=== PATIENT | male | born 1945 | race Caucasian/White ===

== ENCOUNTER 2016-11-26 14:06 | Inpatient (IN) | payer MEDICARE, OTHER ==
[2016-11-26] MEDS: Fenofibrate Nanocrystallized 145 MG TAB PO SCH (20:07)
[2016-11-26] MEDS: Carvedilol 3.125 MG TAB PO SCH (20:09)
[2016-11-26] MEDS: HYDROcodone/Acetaminophen 10/325 mg Tablet PO PRN (20:13)
[2016-11-26] MEDS: Aspirin 325 MG TAB PO SCH (20:14)
[2016-11-26] MEDS: Loratadine 10 MG TAB PO SCH (20:40)
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
[2016-11-27 08:13] LABS: Anion Gap 14 mmol/L (10-20); BUN (Urea Nitrogen) 16 mg/dL (8.4-25.7); Calc. Creatinine Clearance 73 mL/min (70-130); Calcium 9.5 mg/dL (7.8-10.44); Carbon Dioxide 28 mmol/L (23-31); Chloride 101 mmol/L (98-107); Estimated GFR-MDRD 70; Glucose 94 mg/dL (83-110); Potassium 4.3 mmol/L (3.5-5.1); Sodium 139 mmol/L (136-145)
[2016-11-27 08:23] LABS: Hemoglobin 11.3 g/dL (14.0-18.0); Mean Corpuscular HGB CONC 34.1 g/dL (32.0-36.0); Mean Corpuscular Hemoglobin 32.7 pg (27.0-31.0); Mean Corpuscular Volume 95.8 fl (80.0-94.0); Platelet Count 220 thou/uL (130-400); RBC Distribution Width 11.9 % (11.5-14.5); Red Blood Cell (RBC) Count 3.45 mill/uL (4.70-6.10); White Blood Cell (WBC) Count 5.9 thou/uL (4.8-10.8)
[2016-11-27 08:25] LABS: Band 4 % (5-11); Lymphocytes 17 % (21-51); Monocytes 9 % (0-10); Neutrophil 69 % (42-75)
[2016-11-27 08:26] LABS: Eosinophils 1 % (0-10)
[2016-11-27] MEDS: Carvedilol 3.125 MG TAB PO SCH ×2 (08:56→21:03)
[2016-11-27] MEDS: Acetaminophen 500 MG TAB PO SCH (08:56)
[2016-11-27] MEDS: Fish Oil 1,000 MG CAP PO SCH ×2 (08:57→21:05)
[2016-11-27] MEDS: Ezetimibe 10 MG TAB PO SCH (08:57)
[2016-11-27] MEDS: Lisinopril 10 MG TAB PO SCH (08:58)
[2016-11-27] MEDS: Ubidecarenone 50 MG CAP PO SCH (09:00)
[2016-11-27] MEDS: HYDROcodone/Acetaminophen 10/325 mg Tablet PO PRN ×3 (09:10→21:02)
[2016-11-27] MEDS: PRASUGREL HCL 10 MG PO SCH (09:12)
--- NOTE | 2016-11-27 12:26 | PRG ---
DATE OF SERVICE: 11/27/2016 SUBJECTIVE: The patient said he feels pretty good. He is still sore in the right knee. He has got an ice pack on the knee, he said that really helps. OBJECTIVE: The patient is sitting upright in bed with the knee covered with an ice pack. He looks very comfortable, in no distress. His temp 97.5. His pulse is 67, blood pressure 162/66, respirati ons 16, O2 sat 96%. Lungs are clear. Heart, regular rate. Right knee, the swelling of the knee is down, it is still a little larger than the left. The increased heat is presently resolved, but pro bably as a result of the ice pack that has been on the leg. Overall the knee looks better. There i s no drainage from the incision. LABORATORY: H\T\H is 11.3 and 33.1, WBC count 5900 with 69% segs, 17% lymphocytes, and a platelet c ount of 220,000. Sodium 139, potassium 4.3, BUN 16, creatinine 1.04, glucose 94. ASSESSMENT: 1. Weakness and deconditioning and following right total knee replacement on 11/23/2016. A. Improved as of 11/27/2016. 2. Severe osteoarthritis of the knees. A. Status post left total knee replacement on 11/01/2013. B. Status post right total knee replacement on 11/23/2016. 3. Coronary artery disease. A. Status post coronary artery bypass on 07/07/1988, status post stent placement x4 on 07/15/20 09. B. Asymptomatic. 4. Status post pacemaker placement on 07/30/2015 for severe bradycardia with syncope. Last interrogation in 05/2016 showed pacemaker function 45% of the time. 5. Carotid artery disease. A. Status post right carotid endarterectomy with patch angioplasty in 2013. B. Status post left carotid endarterectomy with patch angioplasty on 01/31/2014. 6. Hypertension. 7. Hyperlipidemia. 8. Allergic rhinitis. 9. Chronic kidney disease, stage 3. A. GFR is 70 as of 11/27/2016. 10. Diverticular disease. PLAN: Continue present care. Continue physical therapy. The patient may have a pass to go out and be with his family for lunch tomorrow.
[2016-11-27] MEDS: Aspirin 325 MG TAB PO SCH (21:02)
[2016-11-27] MEDS: Loratadine 10 MG TAB PO SCH (21:02)
[2016-11-27] MEDS: Polyethylene Glycol 3350 17 GM Packet PO PRN (21:08)
[2016-11-27] MEDS: Fenofibrate Nanocrystallized 145 MG TAB PO SCH (22:00)
[2016-11-28] MEDS: HYDROcodone/Acetaminophen 10/325 mg Tablet PO PRN ×2 (08:53→21:03)
[2016-11-28] MEDS: Acetaminophen 500 MG TAB PO SCH (08:54)
[2016-11-28] MEDS: Carvedilol 3.125 MG TAB PO SCH ×2 (08:55→20:57)
[2016-11-28] MEDS: Ezetimibe 10 MG TAB PO SCH (08:55)
[2016-11-28] MEDS: Fish Oil 1,000 MG CAP PO SCH ×2 (08:55→20:59)
[2016-11-28] MEDS: Lisinopril 10 MG TAB PO SCH (08:56)
[2016-11-28] MEDS: Ubidecarenone 50 MG CAP PO SCH (08:56)
[2016-11-28] MEDS: PRASUGREL HCL 10 MG PO SCH (08:56)
[2016-11-28] MEDS: Aspirin 325 MG TAB PO SCH (20:57)
[2016-11-28] MEDS: Fenofibrate Nanocrystallized 145 MG TAB PO SCH (20:59)
[2016-11-28] MEDS: Loratadine 10 MG TAB PO SCH (21:00)
[2016-11-29] MEDS: HYDROcodone/Acetaminophen 10/325 mg Tablet PO PRN ×4 (01:00→17:14)
--- NOTE | 2016-11-29 09:11 | PRG ---
DATE OF SERVICE: 11/29/2016 SUBJECTIVE: The patient went home yesterday for his Easter lunch and this worked out well. He says his leg is a little sore this morning. He did some exercise on it yesterday and now just the muscl es are sore. OBJECTIVE: The patient is lying in bed. He is alert and appears very comfortable, in no distress. Temp 98, pulse 93, blood pressure 162/66, respirations 18, O2 sat 96% on room air. Lungs are clear . Heart, regular rate. The right knee is a little warmer than the left. The right knee is a littl e larger than the left. There is a little redness, appears in the normal range at this stage of his postop day. ASSESSMENT: 1. Weakness and deconditioning and following right total knee replacement on 11/23/2016. A. Improved as of 11/29/2016. 2. Severe osteoarthritis of the knees. A. Status post left total knee replacement on 11/01/2013. B. Status post right total knee replacement on 11/23/2016. 3. Coronary artery disease. A. Status post coronary artery bypass on 07/07/1988, status post stent placement x4 on 07/15/20 09. B. Asymptomatic. 4. Status post pacemaker placement on 07/30/2015 for severe bradycardia with syncope. Last interrogation in 05/2016 showed pacemaker function 45% of the time. 5. Carotid artery disease. A. Status post right carotid endarterectomy with patch angioplasty in 2013. B. Status post left carotid endarterectomy with patch angioplasty on 01/31/2014. 6. Hypertension. 7. Hyperlipidemia. 8. Allergic rhinitis. 9. Chronic kidney disease, stage 3. A. GFR is 70 as of 11/27/2016. 10. Diverticular disease. PLAN: Continue present care. Continue physical therapy.
[2016-11-29] MEDS: Ezetimibe 10 MG TAB PO SCH (09:30)
[2016-11-29] MEDS: Ubidecarenone 50 MG CAP PO SCH (09:31)
[2016-11-29] MEDS: Carvedilol 3.125 MG TAB PO SCH ×2 (09:31→20:37)
[2016-11-29] MEDS: Fish Oil 1,000 MG CAP PO SCH ×2 (09:32→20:36)
[2016-11-29] MEDS: Lisinopril 10 MG TAB PO SCH (09:32)
[2016-11-29] MEDS: PRASUGREL HCL 10 MG PO SCH (09:33)
[2016-11-29] MEDS: Acetaminophen 500 MG TAB PO SCH (09:33)
[2016-11-29] MEDS: Polyethylene Glycol 3350 17 GM Packet PO PRN (17:18)
[2016-11-29] MEDS: Loratadine 10 MG TAB PO SCH (20:36)
[2016-11-29] MEDS: Fenofibrate Nanocrystallized 145 MG TAB PO SCH (20:39)
[2016-11-29] MEDS: Aspirin 325 MG TAB PO SCH (20:39)
[2016-11-29 20:40] VITALS: BMI 24.3
[2016-11-29] MEDS ORDERED: Bisacodyl 10 MG SUPP PR PRN (21:54)
[2016-11-29] MEDS ORDERED: Polyethylene Glycol 3350 17 GM Packet PO SCH (22:00)
[2016-11-30] MEDS: HYDROcodone/Acetaminophen 10/325 mg Tablet PO PRN ×3 (05:37→20:53)
[2016-11-30] MEDS: Ubidecarenone 50 MG CAP PO SCH (08:28)
[2016-11-30] MEDS: Acetaminophen 500 MG TAB PO SCH (08:28)
[2016-11-30] MEDS: Fish Oil 1,000 MG CAP PO SCH ×2 (08:28→20:54)
[2016-11-30] MEDS: Lisinopril 10 MG TAB PO SCH (08:29)
[2016-11-30] MEDS: Carvedilol 3.125 MG TAB PO SCH ×2 (08:29→20:55)
[2016-11-30] MEDS: PRASUGREL HCL 10 MG PO SCH (08:30)
[2016-11-30] MEDS: Ezetimibe 10 MG TAB PO SCH (08:30)
--- NOTE | 2016-11-30 11:01 | PRG ---
DATE OF SERVICE: 11/30/2016 SUBJECTIVE: The patient said he is feeling better today. He had a lot of trouble with his bowels m oving, it had been several days. He took an extra dose of MiraLax and has Dulcolax suppository and said his bowels moved some. Overall he feels better and plans to continue the MiraLax daily. OBJECTIVE: The patient is lying in bed. He is alert and appears very comfortable and in no distres s. His temperature is 97.1, pulse 63, respirations 18, O2 sat 95% on room air, blood pressure 128/6 0. Lungs are clear. Heart, regular rate. Right knee, there is just a spot of some drainage on the dressing. There is mild increased heat, the right knee is a little larger than the left, but size is stable. The leg is a little pink, but no more than what it has been. Overall the leg looks good and he is moving the leg better. ASSESSMENT: 1. Weakness and deconditioning and following right total knee replacement on 11/23/2016. A. Improved as of 11/30/2016. 2. Severe osteoarthritis of the knees. A. Status post left total knee replacement on 11/01/2013. B. Status post right total knee replacement on 11/23/2016. 3. Coronary artery disease. A. Status post coronary artery bypass on 07/07/1988, status post stent placement x4 on 07/15/20 09. B. Asymptomatic. 4. Status post pacemaker placement on 07/30/2015 for severe bradycardia with syncope. Last interrogation in 05/2016 showed pacemaker function 45% of the time. 5. Carotid artery disease. A. Status post right carotid endarterectomy with patch angioplasty in 2013. B. Status post left carotid endarterectomy with patch angioplasty on 01/31/2014. 6. Hypertension. 7. Hyperlipidemia. 8. Allergic rhinitis. 9. Chronic kidney disease, stage 3. A. GFR is 70 as of 11/27/2016. 10. Diverticular disease. PLAN: Continue present care. Continue physical therapy.
[2016-11-30] MEDS: Polyethylene Glycol 3350 17 GM Packet PO PRN (20:51)
[2016-11-30] MEDS: Fenofibrate Nanocrystallized 145 MG TAB PO SCH (20:54)
[2016-11-30] MEDS: Loratadine 10 MG TAB PO SCH (20:54)
[2016-11-30] MEDS: Aspirin 325 MG TAB PO SCH (20:55)
[2016-12-01] MEDS: HYDROcodone/Acetaminophen 10/325 mg Tablet PO PRN ×3 (05:50→18:18)
[2016-12-01] MEDS: Ezetimibe 10 MG TAB PO SCH (10:09)
[2016-12-01] MEDS: Carvedilol 3.125 MG TAB PO SCH ×2 (10:09→21:13)
[2016-12-01] MEDS: Fish Oil 1,000 MG CAP PO SCH ×2 (10:09→21:12)
[2016-12-01] MEDS: Ubidecarenone 50 MG CAP PO SCH (10:09)
[2016-12-01] MEDS: Lisinopril 10 MG TAB PO SCH (10:10)
[2016-12-01] MEDS: Acetaminophen 500 MG TAB PO SCH (10:10)
[2016-12-01] MEDS: PRASUGREL HCL 10 MG PO SCH (10:12)
--- NOTE | 2016-12-01 10:34 | PRG ---
DATE OF SERVICE: 12/01/2016 SUBJECTIVE: The patient said he is doing good. His bowels are moving well. His therapy is going w ell. He slept well last night. OBJECTIVE: The patient is lying in bed. He is awake, appears very comfortable and in no distress. His temp 97.3, pulse 88, respirations 22, O2 sat 98% on room air, blood pressure 134/70. Lungs are clear. Heart, regular rate. Right knee incision is dry. The knee is a little larger than the lef t. The right knee has some increased warmth, but no more than it has had. There is slight pinkness to the knee. Overall, the knee looks better. There is no distal edema. ASSESSMENT: 1. Weakness and deconditioning and following right total knee replacement on 11/23/2016. A. Improved as of 12/01/2016. 2. Severe osteoarthritis of the knees. A. Status post left total knee replacement on 11/01/2013. B. Status post right total knee replacement on 11/23/2016. 3. Coronary artery disease. A. Status post coronary artery bypass on 07/07/1988, status post stent placement x4 on 07/15/20 09. B. Asymptomatic. 4. Status post pacemaker placement on 07/30/2015 for severe bradycardia with syncope. Last interrogation in 05/2016 showed pacemaker function 45% of the time. 5. Carotid artery disease. A. Status post right carotid endarterectomy with patch angioplasty in 2013. B. Status post left carotid endarterectomy with patch angioplasty on 01/31/2014. 6. Hypertension. 7. Hyperlipidemia. 8. Allergic rhinitis. 9. Chronic kidney disease, stage 3. A. GFR is 70 as of 11/27/2016. 10. Diverticular disease. PLAN: Continue present care. Continue physical therapy.
[2016-12-01] MEDS: Fenofibrate Nanocrystallized 145 MG TAB PO SCH (21:13)
[2016-12-01] MEDS: Aspirin 325 MG TAB PO SCH (21:13)
[2016-12-01] MEDS: Loratadine 10 MG TAB PO SCH (21:14)
[2016-12-01] MEDS: Polyethylene Glycol 3350 17 GM Packet PO PRN (21:19)
[2016-12-02] MEDS: HYDROcodone/Acetaminophen 10/325 mg Tablet PO PRN ×3 (06:01→11:57)
[2016-12-02] MEDS: Ubidecarenone 50 MG CAP PO SCH (08:02)
[2016-12-02] MEDS: Lisinopril 10 MG TAB PO SCH (08:02)
[2016-12-02] MEDS: Ezetimibe 10 MG TAB PO SCH (08:02)
[2016-12-02] MEDS: Fish Oil 1,000 MG CAP PO SCH (08:03)
[2016-12-02] MEDS: PRASUGREL HCL 10 MG PO SCH (08:03)
[2016-12-02] MEDS: Carvedilol 3.125 MG TAB PO SCH (08:03)
[2016-12-02] MEDS: Acetaminophen 500 MG TAB PO SCH (08:07)
[2016-12-02 08:14] VITALS: BP 125/61; TEMP 96.2
--- NOTE | 2016-12-02 10:00 | DIS ---
FINAL DIAGNOSES: 1. Weakness and deconditioning and following right total knee replacement on 11/23/2016. A. Improved as of 12/01/2016. 2. Severe osteoarthritis of the knees. A. Status post left total knee replacement on 11/01/2013. B. Status post right total knee replacement on 11/23/2016. 3. Coronary artery disease. A. Status post coronary artery bypass on 07/07/1988, status post stent placement x4 on 07/15/20 09. B. Asymptomatic. 4. Status post pacemaker placement on 07/30/2015 for severe bradycardia with syncope. Last interrogation in 05/2016 showed pacemaker function 45% of the time. 5. Carotid artery disease. A. Status post right carotid endarterectomy with patch angioplasty in 2013. B. Status post left carotid endarterectomy with patch angioplasty on 01/31/2014. 6. Hypertension. 7. Hyperlipidemia. 8. Allergic rhinitis. 9. Chronic kidney disease, stage 3. A. GFR is 70 as of 11/27/2016. 10. Diverticular disease. SUMMARY: The patient is a 71-year-old white male who has a history of coronary artery disease for w hich he has undergone bypass in 1987 and stents in 2008. He has been asymptomatic since then. He a lso has a pacemaker for bradycardia with syncope and carotid artery disease and hypertension. He ernst s been very stable from these medical problems. He has had very severe arthritis of the knees and u nderwent a left total knee replacement in 10/2013. The right knee had progressed and had become lonny y symptomatic and was creating pain with ambulation and limiting his activity. He was hospitalized at [facility] on 11/23/2016 and underwent a right total knee replacement by orthopedic surgeon, Dr. Nicholas Giordano. There were no complications from this and he has done very w ell postop. He was referred to the [facility] to extended care on 11/26 for continued physical therapy. His stay at the hospital has been uneventful. He worked with physical therapy and made very excellent progress with them, was transferring and ambulating with t he use of a walker independent. The knee was healing well. The dressing was left in place per requ est of orthopedic surgeon. There was a slight stain from drainage on the wound that remained stable . The knee was slightly larger than the left and slightly warm which were inspected changes from e surgery and was also a little larger than the opposite knee. He did very excellent with his physi dong therapy and by 12/02/2016 he felt like he could manage at home. He lives with his who will assist him with his care and the patient will stay for his physical therapy today and then go home late this afternoon and then we will start outpatient physical therapy on tomorrow 12/03/2016. His repeat lab on 11/27/2016 showed an H\T\H of 11.3 and 33.1, white cell count 5900 with 69% segs, 17% lymphocytes, and a platelet count of 220,000. Sodium 139, potassium 4.3, BUN 16, creatinine 1.04, G FR 70, glucose 94. DISPOSITION: The patient discharged on 12/02/2016. DIET: Regular diet. No added salt. ACTIVITIES: Ambulate with the use of a walker. Will begin outpatient physical therapy for the stre ngthening, gait training, and range motion of the right knee on 12/03/2016. MEDICATIONS: Acetaminophen 325 mg 2 q.i.d. as needed, hydrocodone/acetaminophen 10/325 1-2 every 4 hours as needed, aspirin 325 mg daily, carvedilol 3.125 mg half a tablet b.i.d., CoQ10 100 mg daily, Zetia 10 mg daily, Tricor 140 mg daily, fish oil 2000 mg b.i.d., lisinopril 20 mg daily, loratadine 10 mg daily as needed, pantoprazole 40 mg daily, MiraLax 17 grams in 8 ounces of water daily, Trisha nt 10 mg daily, Ranexa 1000 mg b.i.d., Crestor 40 mg at bedtime. FOLLOW UP: The patient is to see his orthopedic surgeon, Dr. Nicholas Giordano, on 12/22/2016. He will be seen in followup by myself in 2 weeks. CODE STATUS: Full code.
== END 2016-12-02 16:34 | disposition home or self-care (01) | DRG 561 ==
LOC: MADMS 14:06
PROVIDERS: ADMIT Family Medicine; ATTEND Family Medicine
DX: Z47.1 Aftercare following joint replacement surgery (principal); N18.3 Chronic kidney disease, stage 3 (moderate); I12.9 Hypertensive chronic kidney disease with stage 1 through stage 4 chronic kidney disease, or unspecified chronic kidney disease; Z96.651 Presence of right artificial knee joint; Z96.652 Presence of left artificial knee joint; R53.1 Weakness; I25.10 Atherosclerotic heart disease of native coronary artery without angina pectoris; Z95.5 Presence of coronary angioplasty implant and graft; Z95.820 Peripheral vascular angioplasty status with implants and grafts; Z95.0 Presence of cardiac pacemaker; Z95.1 Presence of aortocoronary bypass graft; E78.5 Hyperlipidemia, unspecified; J30.9 Allergic rhinitis, unspecified; K57.90 Diverticulosis of intestine, part unspecified, without perforation or abscess without bleeding; K58.9 Irritable bowel syndrome, unspecified; K57.30 Diverticulosis of large intestine without perforation or abscess without bleeding; Z87.891 Personal history of nicotine dependence
CPT/HCPCS: 36415; 80048; 85025

== ENCOUNTER 2017-02-07 08:44 | Outpatient (CLI) | payer MEDICARE, OTHER ==
[2017-02-07 09:44] LABS: ALT (SGPT) 20 U/L (8-55); AST (SGOT) 28 U/L (5-34); Albumin 4.2 g/dL (3.4-4.8); Alkaline Phosphatase 24 U/L (40-150); Anion Gap 13 mmol/L (10-20); BUN (Urea Nitrogen) 22 mg/dL (8.4-25.7); Bilirubin, Total 0.6 mg/dL (0.2-1.2); Calc. Creatinine Clearance 0 mL/min (70-130); Calcium 9.8 mg/dL (7.8-10.44); Carbon Dioxide 25 mmol/L (23-31); Cardiac Risk 3.3 (Less than 4.5); Chloride 104 mmol/L (98-107); Cholesterol 137 mg/dl (< 200 Desired); Estimated GFR-MDRD 55; Globulin 3.5 g/dL (2.4-3.5); Glucose 101 mg/dL (83-110); HDL Cholesterol 42 mg/dL (>60 Neg Risk); LDL Cholesterol, Calculated 75 mg/dL; Potassium 5.1 mmol/L (3.5-5.1); Protein, Total 7.7 g/dL (5.8-8.1); Sodium 137 mmol/L (136-145); Triglycerides 99 mg/dL (Less than 150)
== END 2017-02-07 08:45 | disposition home or self-care (01) ==
LOC: MADLAB 08:44
PROVIDERS: ATTEND Internal Medicine Cardiovascular Disease
DX: E78.00 Pure hypercholesterolemia, unspecified (principal)
CPT/HCPCS: 36415; 80053; 80061

== ENCOUNTER 2017-03-28 07:39 | Outpatient (CLI) | payer MEDICARE, OTHER ==
[2017-03-28 08:25] LABS: #Basophils 0.1 thou/uL (0.0-0.2); #Eosinphils 0.2 thou/uL (0.0-0.7); #Lymphocytes 2.1 thou/uL (1.20-3.40); #Monocytes 0.6 thou/uL (0.11-0.59); #Neutrophils 3.3 thou/uL (1.40-6.50); %Basophils 1.1 % (0.0-1.0); %Eosinophils 2.9 % (0.0-10.0); %Lymphocytes 33.5 % (21.0-51.0); %Monocytes 10.2 % (0.0-10.0); %Neutrophils 52.2 % (42.0-75.0); Hemoglobin 12.2 g/dL (14.0-18.0); Mean Corpuscular HGB CONC 32.1 g/dL (32.0-36.0); Mean Corpuscular Hemoglobin 30.9 pg (27.0-31.0); Mean Corpuscular Volume 96.4 fl (80.0-94.0); Mean Platelet Volume 6.6 fL (7.4-10.4); Platelet Count 263 thou/uL (130-400); RBC Distribution Width 13.1 % (11.5-14.5); Red Blood Cell (RBC) Count 3.96 mill/uL (4.70-6.10); White Blood Cell (WBC) Count 6.3 thou/uL (4.8-10.8)
[2017-03-28 08:43] LABS: ALT (SGPT) 17 U/L (8-55); AST (SGOT) 22 U/L (5-34); Alkaline Phosphatase 32 U/L (40-150); Anion Gap 15 mmol/L (10-20); BUN (Urea Nitrogen) 25 mg/dL (8.4-25.7); Bilirubin, Direct 0.2 mg/dL (0.1-0.3); Bilirubin, Total 0.4 mg/dL (0.2-1.2); Calc. Creatinine Clearance 0 mL/min (70-130); Calcium 9.5 mg/dL (7.8-10.44); Carbon Dioxide 26 mmol/L (23-31); Cardiac Risk 3.2 (Less than 4.5); Chloride 105 mmol/L (98-107); Cholesterol 142 mg/dl (< 200 Desired); Estimated GFR-MDRD 52; Glucose 105 mg/dL (83-110); HDL Cholesterol 44 mg/dL (>60 Neg Risk); LDL Cholesterol, Calculated 79 mg/dL; Potassium 4.5 mmol/L (3.5-5.1); Protein, Total 7.2 g/dL (5.8-8.1); Sodium 141 mmol/L (136-145); Triglycerides 95 mg/dL (Less than 150)
[2017-03-28 10:55] LABS: PSA-Asymptomatic (SCREENING) 0.98 ng/mL (0-4.0); Thyroid Stimulating Hormone 4.8846 uIU/mL (0.35-4.94)
== END 2017-03-28 07:40 | disposition home or self-care (01) ==
LOC: MADLABBHPM 07:39
PROVIDERS: ATTEND Family Medicine
DX: Z12.5 Encounter for screening for malignant neoplasm of prostate (principal); I25.10 Atherosclerotic heart disease of native coronary artery without angina pectoris
CPT/HCPCS: 36415; 80048; 80061; 80076; 84443; 85025; G0103

== ENCOUNTER 2018-02-28 07:36 | Outpatient (CLI) | payer MEDICARE, BC ==
[2018-02-28 08:12] LABS: #Basophils 0.1 thou/uL (0.0-0.2); #Eosinphils 0.2 thou/uL (0.0-0.7); #Lymphocytes 1.7 thou/uL (1.20-3.40); #Monocytes 0.6 thou/uL (0.11-0.59); #Neutrophils 3.3 thou/uL (1.40-6.50); %Eosinophils 2.6 % (0.0-10.0); %Lymphocytes 29.7 % (21.0-51.0); %Monocytes 9.4 % (0.0-10.0); %Neutrophils 57.4 % (42.0-75.0); Hemoglobin 11.9 g/dL (14.0-18.0); Mean Corpuscular HGB CONC 32.3 g/dL (32.0-36.0); Mean Corpuscular Hemoglobin 29.8 pg (27.0-31.0); Mean Corpuscular Volume 92.3 fL (78.0-98.0); Platelet Count 278 thou/uL (130-400); RBC Distribution Width 12.8 % (11.5-14.5); Red Blood Cell (RBC) Count 3.99 mill/uL (4.70-6.10); White Blood Cell (WBC) Count 5.8 thou/uL (4.8-10.8)
[2018-02-28 08:34] LABS: ALT (SGPT) 20 U/L (8-55); AST (SGOT) 28 U/L (5-34); Alkaline Phosphatase 22 U/L (40-150); Anion Gap 15 mmol/L (10-20); BUN (Urea Nitrogen) 26 mg/dL (8.4-25.7); Bilirubin, Direct 0.2 mg/dL (0.1-0.3); Bilirubin, Total 0.5 mg/dL (0.2-1.2); Calc. Creatinine Clearance 0 mL/min (70-130); Calcium 9.4 mg/dL (7.8-10.44); Carbon Dioxide 22 mmol/L (23-31); Cardiac Risk 3.3 (Less than 4.5); Chloride 106 mmol/L (98-107); Cholesterol 138 mg/dl (< 200 Desired); Estimated GFR-MDRD 50; Glucose 97 mg/dL (83-110); HDL Cholesterol 42 mg/dL (>60 Neg Risk); LDL Cholesterol, Calculated 73 mg/dL; Potassium 4.5 mmol/L (3.5-5.1); Sodium 138 mmol/L (136-145); Triglycerides 114 mg/dL (Less than 150)
== END 2018-02-28 07:37 | disposition home or self-care (01) ==
LOC: MADLABBHPM 07:36
PROVIDERS: ATTEND Family Medicine
DX: N18.3 Chronic kidney disease, stage 3 (moderate) (principal); E78.5 Hyperlipidemia, unspecified
CPT/HCPCS: 36415; 80048; 80061; 80076; 85025

== ENCOUNTER 2019-04-22 17:43 | Emergency (ER) | payer MEDICARE, BC ==
[2019-04-22 18:35] LABS: #Eosinphils 0.1 thou/uL (0.0-0.7); #Lymphocytes 1.7 thou/uL (1.20-3.40); #Monocytes 0.6 thou/uL (0.11-0.59); #Neutrophils 4.4 thou/uL (1.40-6.50); %Basophils 0.5 % (0.0-1.0); %Lymphocytes 25.2 % (21.0-51.0); %Monocytes 8.6 % (0.0-10.0); %Neutrophils 63.7 % (42.0-75.0); Hemoglobin 11.3 g/dL (14.0-18.0); Mean Corpuscular HGB CONC 32.7 g/dL (32.0-36.0); Mean Corpuscular Hemoglobin 29.8 pg (27.0-31.0); Mean Corpuscular Volume 91.1 fL (78.0-98.0); Mean Platelet Volume 5.9 fL (7.4-10.4); Platelet Count 241 thou/uL (130-400); RBC Distribution Width 12.1 % (11.5-14.5); White Blood Cell (WBC) Count 6.9 thou/uL (4.8-10.8)
[2019-04-22 18:43] LABS: INR-International Normal Ratio 1.1; PTT 31.4 SEC (22.9-36.1); Prothrombin Time 13.9 SEC (12.0-14.7)
[2019-04-22 18:53] LABS: ALT (SGPT) 16 U/L (8-55); AST (SGOT) 21 U/L (5-34); Albumin 3.5 g/dL (3.4-4.8); Alkaline Phosphatase 27 U/L (40-150); Anion Gap 14 mmol/L (10-20); BUN (Urea Nitrogen) 20 mg/dL (8.4-25.7); Bilirubin, Total 0.4 mg/dL (0.2-1.2); Calc. Creatinine Clearance 0 mL/min (70-130); Calcium 9.2 mg/dL (7.8-10.44); Carbon Dioxide 23 mmol/L (23-31); Chloride 103 mmol/L (98-107); Estimated GFR-MDRD 69; Globulin 2.9 g/dL (2.4-3.5); Glucose 121 mg/dL (83-110); Potassium 4.1 mmol/L (3.5-5.1); Protein, Total 6.4 g/dL (5.8-8.1); Sodium 136 mmol/L (136-145)
== END 2019-04-22 19:38 | disposition home or self-care (01) ==
LOC: MADERS 17:43
DX: S91.111A Laceration without foreign body of right great toe without damage to nail, initial encounter (principal); S00.12XA Contusion of left eyelid and periocular area, initial encounter; S80.12XA Contusion of left lower leg, initial encounter; H57.89 Other specified disorders of eye and adnexa; K21.9 Gastro-esophageal reflux disease without esophagitis; E78.5 Hyperlipidemia, unspecified; I10 Essential (primary) hypertension; W23.0XXA Caught, crushed, jammed, or pinched between moving objects, initial encounter
CPT/HCPCS: 36415; 80053; 85025; 85610; 85730; 99283

== ENCOUNTER 2019-04-25 10:58 | Outpatient (CLI) | payer MEDICARE, BC ==
[2019-04-25 11:18] LABS: #Eosinphils 0.2 thou/uL (0.0-0.7); #Lymphocytes 1.6 thou/uL (1.20-3.40); #Monocytes 0.5 thou/uL (0.11-0.59); #Neutrophils 5.7 thou/uL (1.40-6.50); %Basophils 0.6 % (0.0-1.0); %Lymphocytes 20.1 % (21.0-51.0); %Monocytes 6.1 % (0.0-10.0); %Neutrophils 71.2 % (42.0-75.0); Hemoglobin 11.5 g/dL (14.0-18.0); Mean Corpuscular HGB CONC 31.9 g/dL (32.0-36.0); Mean Corpuscular Hemoglobin 29.5 pg (27.0-31.0); Mean Corpuscular Volume 92.7 fL (78.0-98.0); Mean Platelet Volume 5.6 fL (7.4-10.4); Platelet Count 280 thou/uL (130-400); RBC Distribution Width 12.5 % (11.5-14.5); Red Blood Cell (RBC) Count 3.88 mill/uL (4.70-6.10)
== END 2019-04-25 10:59 | disposition home or self-care (01) ==
LOC: MADLABBHPM 10:58
PROVIDERS: ATTEND Family Medicine
DX: Z51.81 Encounter for therapeutic drug level monitoring (principal); S61.309A Unspecified open wound of unspecified finger with damage to nail, initial encounter; Z79.01 Long term (current) use of anticoagulants
CPT/HCPCS: 36415; 85025; 85610

== ENCOUNTER 2019-07-01 13:19 | Outpatient (CLI) | payer MEDICARE, BC ==
[2019-07-01 13:28] LABS: #Basophils 0.1 thou/uL (0.0-0.2); #Eosinphils 0.2 thou/uL (0.0-0.7); #Lymphocytes 1.5 thou/uL (1.20-3.40); #Monocytes 0.8 thou/uL (0.11-0.59); #Neutrophils 5.6 thou/uL (1.40-6.50); %Basophils 0.7 % (0.0-1.0); %Eosinophils 2.4 % (0.0-10.0); %Lymphocytes 18.3 % (21.0-51.0); %Monocytes 9.7 % (0.0-10.0); %Neutrophils 68.9 % (42.0-75.0); Hemoglobin 9.2 g/dL (14.0-18.0); Mean Corpuscular HGB CONC 30.5 g/dL (32.0-36.0); Mean Corpuscular Hemoglobin 28.2 pg (27.0-31.0); Mean Corpuscular Volume 92.2 fL (78.0-98.0); Mean Platelet Volume 5.5 fL (7.4-10.4); Platelet Count 410 thou/uL (130-400); RBC Distribution Width 13.7 % (11.5-14.5); Red Blood Cell (RBC) Count 3.25 mill/uL (4.70-6.10); White Blood Cell (WBC) Count 8.1 thou/uL (4.8-10.8)
[2019-07-01 13:35] LABS: Anion Gap 14 mmol/L (10-20); BUN (Urea Nitrogen) 20 mg/dL (8.4-25.7); Calc. Creatinine Clearance 0 mL/min (70-130); Calcium 9.5 mg/dL (7.8-10.44); Carbon Dioxide 25 mmol/L (23-31); Chloride 104 mmol/L (98-107); Estimated GFR-MDRD 51; Glucose 114 mg/dL (83-110); Potassium 4.3 mmol/L (3.5-5.1); Sodium 139 mmol/L (136-145)
== END 2019-07-01 13:20 | disposition home or self-care (01) ==
LOC: MADLAB 13:19
PROVIDERS: ATTEND Thoracic Surgery (Cardiothoracic Vascular Surgery)
DX: I70.221 Atherosclerosis of native arteries of extremities with rest pain, right leg (principal)
CPT/HCPCS: 36415; 80048; 85025

== ENCOUNTER 2019-09-20 10:08 | Inpatient (IN) | payer MEDICARE, BC ==
[2019-09-20 13:43] VITALS: BMI 21.5
[2019-09-20] MEDS ORDERED: Nystatin Powder 15 GM BOT TOP PRN (16:04)
[2019-09-20] MEDS ORDERED: guaiFENesin ER 600 MG TAB PO PRN (16:04)
[2019-09-20] MEDS: HYDROcodone/Acetaminophen 10/325 mg Tablet PO PRN ×2 (16:37→21:44)
[2019-09-20] MEDS: Doxycycline 100 MG CAP PO SCH (21:42)
[2019-09-20] MEDS: Aspirin 325 MG TAB PO SCH (21:42)
[2019-09-20] MEDS: Fenofibrate Nanocrystallized 145 MG TAB PO SCH (21:42)
[2019-09-20] MEDS: Folic Acid 1 MG TAB PO SCH (21:43)
[2019-09-20] MEDS: Loratadine 10 MG TAB PO SCH (21:43)
[2019-09-20] MEDS: Rosuvastatin 10 MG TAB PO SCH (21:44)
[2019-09-20] MEDS: Polyethylene Glycol 3350 17 GM Packet PO SCH (21:44)
[2019-09-20] MEDS: IPRATROPIUM BROMIDE EA NARE SCH (21:49)
[2019-09-20] MEDS: Omega-3 Acid Ethyl Esters [Lovaza] 1 GM PO SCH (21:58)
[2019-09-21 05:39] LABS: #Eosinphils 0.1 thou/uL (0.0-0.7); #Lymphocytes 1.4 thou/uL (1.20-3.40); #Monocytes 0.6 thou/uL (0.11-0.59); %Basophils 0.6 % (0.0-1.0); %Lymphocytes 23.2 % (21.0-51.0); %Monocytes 9.7 % (0.0-10.0); %Neutrophils 64.5 % (42.0-75.0); Elliptocytes SLIGHT = 2-5 cells (100X) (0-1/hpf); Hemoglobin 9.2 g/dL (14.0-18.0); Hypochromia SLIGHT = 6-15 cells (100X) (0-5/hpf); MDiff Complete? YES; Mean Corpuscular HGB CONC 30.3 g/dL (32.0-36.0); Mean Corpuscular Hemoglobin 26.5 pg (27.0-31.0); Mean Corpuscular Volume 87.5 fL (78.0-98.0); Mean Platelet Volume 5.1 fL (7.4-10.4); Platelet Count 357 thou/uL (130-400); Platelet Morphology Comment Appears Adequate; RBC Distribution Width 21.2 % (11.5-14.5); Red Blood Cell (RBC) Count 3.48 mill/uL (4.70-6.10); Schistocytes SLIGHT = 2-5 cells (100X) (0-1/hpf); Small Platelets SLIGHT; Tear Drops SLIGHT = 2-5 cells (100X) (0-1/hpf); White Blood Cell (WBC) Count 6.2 thou/uL (4.8-10.8)
[2019-09-21 05:47] LABS: ALT (SGPT) 22 U/L (8-55); AST (SGOT) 50 U/L (5-34); Albumin 2.9 g/dL (3.4-4.8); Alkaline Phosphatase 22 U/L (40-110); Anion Gap 14 mmol/L (10-20); BUN (Urea Nitrogen) 7 mg/dL (8.4-25.7); Bilirubin, Total 0.8 mg/dL (0.2-1.2); Calc. Creatinine Clearance 81 mL/min (70-130); Calcium 9.2 mg/dL (7.8-10.44); Carbon Dioxide 24 mmol/L (23-31); Chloride 102 mmol/L (98-107); Estimated GFR-MDRD Greater than 90; Globulin 3.7 g/dL (2.4-3.5); Glucose 81 mg/dL (83-110); Potassium 3.7 mmol/L (3.5-5.1); Protein, Total 6.6 g/dL (5.8-8.1); Sodium 136 mmol/L (136-145)
[2019-09-21] MEDS: Ondansetron ODT 4 MG TAB PO PRN (08:45)
--- NOTE | 2019-09-21 08:55 | HP ---
CHIEF COMPLAINT: General weakness, deconditioning, and wound care. HISTORY OF PRESENT ILLNESS: The patient is a 74-year-old white male, who has a history of generalized atherosclerosis, for which he has undergone coronary artery bypass, stent placements, bilateral carotid endarterectomies, multiple peripheral artery procedures to the lower extremities, who developed progressive loss of circulation in his feet and eventual gangrenous changes of the toes. The patient was hospitalized at [facility] from 08/27/2019 to 09/20/2019. There, he underwent a bilateral transmetatarsal guillotine type amputation due to the severe bilateral peripheral vascular disease with necrosis of the toes. This was done by Dr. Fareed Kendall, cardiovascular surgeon. He subsequently underwent incision and debridement of the right foot wound and closure on 09/05/2019 and then on 09/14/2019, he underwent incision and debridement and closure of the left foot, leaving some of the area open and had a wound VAC applied. He has been doing better. The right foot has been much better. He has been able to do some pivoting off the right heel, but he is nonweightbearing on the left and has a wound VAC to help with closure. His pain has been managed with now a fentanyl patch and with hydrocodone/acetaminophen 10/325 as needed for breakthrough pain. He was transferred to [facility] for continued wound care and for physical therapy. The patient was seen soon after his admission and he was able to review with me his history of his hospital stay. PAST MEDICAL HISTORY: Hospitalized at [facility] from 08/27 to 2019, for severe peripheral vascular disease below the knees with small vessel disease resulting in necrosis of the toes, for which he underwent bilateral transmetatarsal guillotine type amputation, incision and debridement and closure of the right foot on 09/05, and on 09/14, incision and debridement and partial closure of the left foot with wound VAC applications. The patient has severe generalized atherosclerosis. He underwent coronary artery bypass in 1987, heart stents x4 in July of 2006. He has had bilateral carotid endarterectomies in 2013 and 2011. He has had multiple balloon angioplasty and bypass to the lower extremities for peripheral vascular disease. He has an ischemic cardiomyopathy with improvement in the ejection fraction from 40% to 45% to 50% to 55%. 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 He has hypertension and hypercholesterolemia. He has a long history of smoking, but is trying to stop. He has Najera palsy. He has had herpes zoster involving the eye. He has had carpal tunnel release in May 2015. He has diverticulosis, had colonoscopies on several times. He has had right total knee replacement in November 2016. PRESENT MEDICATIONS: 1. Guaifenesin ER 600 mg b.i.d. as needed. 2. Lincoln-3 acid (Lovaza) two caps b.i.d. 3. Nicotine patch 7 mg daily. 4. Hydrocodone/acetaminophen 10/325 one or two every 4 hours as needed for pain. 5. Folic acid 1 mg b.i.d. 6. MiraLAX 17 g in 8 ounces of water daily. 7. Fluticasone two sprays in each naris daily. 8. Fenofibrate 145 mg at bedtime. 9. CoQ10 of 100 mg daily. 10. Crestor 40 mg daily. 11. Ranexa 1000 mg b.i.d. 12. Pantoprazole 40 mg daily. 13. Lisinopril 10 mg daily. 14. Aspirin 325 mg daily. 15. Florastor 250 mg daily. 16. Seroquel 25 mg at bedtime. 17. Mycostatin powder apply as needed. 18. Levaquin 500 mg daily. 19. Doxycycline 100 mg b.i.d. 20. Fentanyl patch 100 mcg apply to the skin every 72 hours. 21. Atrovent nasal spray one spray in each naris b.i.d. 22. Tylenol 650 mg every 4 hours as needed. ALLERGIES: LIPITOR, CHEST PAIN. VYTORIN, CHEST PAIN. BIAXIN, NAUSEA. PREVPAC , VOMITING. FLAGYL, DIZZINESS. CIPRO, GI UPSET. REVIEW OF SYSTEMS: GENERAL: The patient said he is feeling better. He does not think he has had any recent fever. The patient does not think that he has had any particular weight change. PULMONARY: The patient is breathing. He is doing good. He did have a few days ago where he was little winded and was seen by pulmonary doctor, Dr. Vasquez and Dr. Man. The patient right now is not coughing, and breathing seems to be doing good. CARDIOVASCULAR: No chest pain. GI: No nausea or vomiting. No change in bowel habits. : No complaints. NEUROPSYCHIATRIC: The patient had a little bit of confusion from an encephalopathy a few days ago, but this has all resolved. ADLS: Prior to his hospitalization, he was independent of all his ADLs. HABITS: Stopped smoking in 1987. Use smokeless tobacco and trying to stop. Alcohol none. SOCIAL HISTORY: The patient is and lives at home with his . PHYSICAL EXAMINATION: GENERAL: Shows a very pleasant 74-year-old white male, who is alert, talkative, appears comfortable and in no distress. VITAL SIGNS: His temperature is 97.4, pulse 97, respirations 16, O2 saturation 98% on room air, blood pressure 118/72, weight 154, and height 71 inches. HEENT: Head, normocephalic and atraumatic with male pattern baldness. Ears, TMs clear. Eyes, pupils are equal, round, and reactive. Nose, normal. Mouth and throat, normal. NECK: Carotids are equal and strong. No bruits. Thyroid, not enlarged. LUNGS: Clear. HEART: Regular rate. No murmurs. ABDOMEN: Soft. No organomegaly. No areas of tenderness. EXTREMITIES: The patient has dressings over both feet. The right foot was undressed and he has had a transmetatarsal amputation and the wound has been secondarily closed. There is a little crusting along the incision. The feet are warm. There is no redness. The left foot was left dressed. There is a wound VAC present, but it all shows undergone a transmetatarsal amputation and partial closure, some of the wound left open to heal with the help of a wound VAC. NEUROLOGIC: The patient is alert and oriented x3 with generalized weakness. Presently nonambulatory due to his weakness. IMPRESSION: 1. Generalized weakness and deconditioning. a. Status post bilateral transmetatarsal amputation of the feet on 2019. b. Has left him nonambulatory. 2. Hospitalized at [facility] from 08/27/2019 until 09/20/2019, for severe peripheral vascular disease with [id number] small-vessel disease with necrosis of the toes, for which he underwent bilateral transmetatarsal guillotine type amputation on 08/27, status post incision and debridement and closure of the right foot on 09/05, status post incision and drainage and partial closure and application of wound VAC to the left foot on 09/14. 3. Coronary artery disease. a. Status post coronary artery bypass in 1987. b. Status post stents x4 in 2005. c. Complicated by ischemic cardiomyopathy with improvement in his ejection fraction from 40% to 45% to 50% to 55%. Presently no evidence of acute congestive heart failure. 4. Carotid artery disease. a. Status post bilateral carotid endarterectomy. 5. Peripheral vascular disease. a. Status post multiple angioplasties and bypass to the lower extremities. b. Most recent bilateral transmetatarsal guillotine type amputation on 08/27 for severe peripheral vascular disease with necrosis of the toes. 6. Hypertension. 7. Hypercholesterolemia. 8. Tobacco abuse a.Stopped smoking 1987 b Chronic smokeless tobacco use. Trying to stop.. 9. Hyperlipidemia. 10. Status post dual chamber pacemaker placement. a. History of bradycardia with syncope. PLAN: The patient has been admitted to [facility] for continuation of wound care to the left foot. We will continue to use the wound VAC. Also we will continue present pain management regimen that he is receiving. Continue Lovenox for DVT prophylaxis. PT and OT will work with him for general strengthening and gait training. Presently, he can weight bear as he tolerates on the left. He will probably do better in a walking boot when he is up. Will need to follow up with his cardiovascular surgeon, Dr. Fareed Kendall in 2 weeks. Job ID: [id number] MTDD
[2019-09-21] MEDS ORDERED: fentaNYL 50 mcg/hour Patch TD SCH (09:00)
[2019-09-21] MEDS ORDERED: Enoxaparin Sodium 40 MG/0.4 ML SYRINGE SC SCH (09:00)
[2019-09-21] MEDS: Doxycycline 100 MG CAP PO SCH ×2 (10:59→21:34)
[2019-09-21] MEDS: Fluticasone Propionate Nasal Spray 16 gm Bottle NASAL SCH (11:02)
[2019-09-21] MEDS: Folic Acid 1 MG TAB PO SCH ×2 (11:07→21:34)
[2019-09-21] MEDS: Lisinopril 10 MG TAB PO SCH (11:07)
[2019-09-21] MEDS: IPRATROPIUM BROMIDE EA NARE SCH ×2 (11:08→21:35)
[2019-09-21] MEDS: Ubidecarenone 50 MG CAP PO SCH (11:11)
[2019-09-21] MEDS: Saccharomyces boulardii 250 MG CAP PO SCH (11:11)
[2019-09-21] MEDS: Omega-3 Acid Ethyl Esters [Lovaza] 1 GM PO SCH ×2 (11:12→21:39)
[2019-09-21] MEDS: Acetaminophen 325 MG TAB PO PRN (14:00)
[2019-09-21] MEDS: Carvedilol 3.125 MG TAB PO SCH (18:27)
[2019-09-21] MEDS: Fenofibrate Nanocrystallized 145 MG TAB PO SCH (21:34)
[2019-09-21] MEDS: Aspirin 325 MG TAB PO SCH (21:34)
[2019-09-21] MEDS: Nicotine 7 MG PATCH TD SCH (21:35)
[2019-09-21] MEDS: Loratadine 10 MG TAB PO SCH (21:35)
[2019-09-21] MEDS: Polyethylene Glycol 3350 17 GM Packet PO SCH (21:36)
[2019-09-21] MEDS: Rosuvastatin 10 MG TAB PO SCH (21:37)
[2019-09-21] MEDS ORDERED: Oxymetazoline HCl 0.05% (30 ML BOT) NS SCH (22:30)
[2019-09-22] MEDS: Ubidecarenone 50 MG CAP PO SCH (08:50)
[2019-09-22] MEDS: Carvedilol 3.125 MG TAB PO SCH ×2 (08:51→17:03)
[2019-09-22] MEDS: Lisinopril 10 MG TAB PO SCH (08:51)
[2019-09-22] MEDS: Doxycycline 100 MG CAP PO SCH ×2 (08:51→20:24)
[2019-09-22] MEDS: Saccharomyces boulardii 250 MG CAP PO SCH (08:51)
[2019-09-22] MEDS: Omega-3 Acid Ethyl Esters [Lovaza] 1 GM PO SCH ×2 (08:52→20:32)
[2019-09-22] MEDS: IPRATROPIUM BROMIDE EA NARE SCH ×2 (08:52→20:35)
[2019-09-22] MEDS: Folic Acid 1 MG TAB PO SCH ×2 (08:52→20:25)
[2019-09-22] MEDS: Fluticasone Propionate Nasal Spray 16 gm Bottle NASAL SCH (08:53)
[2019-09-22] MEDS: Acetaminophen 325 MG TAB PO PRN ×2 (10:29→22:08)
[2019-09-22] MEDS ORDERED: Sodium Chloride 0.65% Nasal 44 ML BOT EA NARE PRN (11:49)
[2019-09-22] MEDS: fentaNYL 50 mcg/hour Patch TD SCH (15:10)
[2019-09-22] MEDS: Aspirin Chewable 81 MG TAB PO SCH (20:23)
[2019-09-22] MEDS: Polyethylene Glycol 3350 17 GM Packet PO SCH (20:23)
[2019-09-22] MEDS: Fenofibrate Nanocrystallized 145 MG TAB PO SCH (20:24)
[2019-09-22] MEDS: Nicotine 7 MG PATCH TD SCH (20:24)
[2019-09-22] MEDS: Loratadine 10 MG TAB PO SCH (20:25)
[2019-09-22] MEDS: Rosuvastatin 10 MG TAB PO SCH (20:26)
[2019-09-22] MEDS: HYDROcodone/Acetaminophen 10/325 mg Tablet PO PRN (22:31)
[2019-09-23] MEDS: Acetaminophen 325 MG TAB PO PRN ×3 (05:47→18:40)
[2019-09-23 05:54] LABS: Anion Gap 15 mmol/L (10-20); BUN (Urea Nitrogen) 11 mg/dL (8.4-25.7); Calc. Creatinine Clearance 81 mL/min (70-130); Calcium 9.6 mg/dL (7.8-10.44); Carbon Dioxide 28 mmol/L (23-31); Chloride 99 mmol/L (98-107); Estimated GFR-MDRD Greater than 90; Glucose 102 mg/dL (83-110); Potassium 4.6 mmol/L (3.5-5.1); Sodium 137 mmol/L (136-145)
[2019-09-23 05:55] LABS: #Basophils 0.1 thou/uL (0.0-0.2); #Eosinphils 0.2 thou/uL (0.0-0.7); #Lymphocytes 1.2 thou/uL (1.20-3.40); #Monocytes 0.8 thou/uL (0.11-0.59); #Neutrophils 3.6 thou/uL (1.40-6.50); %Basophils 1.8 % (0.0-1.0); %Eosinophils 3.4 % (0.0-10.0); %Lymphocytes 20.8 % (21.0-51.0); %Monocytes 13.2 % (0.0-10.0); %Neutrophils 60.8 % (42.0-75.0); Elliptocytes SLIGHT = 2-5 cells (100X) (0-1/hpf); Hemoglobin 9.4 g/dL (14.0-18.0); Hypochromia SLIGHT = 6-15 cells (100X) (0-5/hpf); Large Platelets SLIGHT; MDiff Complete? YES; Mean Corpuscular Volume 89.8 fL (78.0-98.0); Mean Platelet Volume 5.8 fL (7.4-10.4); Platelet Count 335 thou/uL (130-400); Platelet Morphology Comment Appears Adequate; Poikilocytosis MODERATE=16-30 cells (100X) (0-5/hpf); RBC Distribution Width 21.2 % (11.5-14.5); Schistocytes SLIGHT = 2-5 cells (100X) (0-1/hpf); Tear Drops SLIGHT = 2-5 cells (100X) (0-1/hpf); White Blood Cell (WBC) Count 5.9 thou/uL (4.8-10.8)
[2019-09-23] MEDS: Ubidecarenone 50 MG CAP PO SCH (09:03)
[2019-09-23] MEDS: Saccharomyces boulardii 250 MG CAP PO SCH (09:04)
[2019-09-23] MEDS: Carvedilol 3.125 MG TAB PO SCH ×2 (09:04→16:25)
[2019-09-23] MEDS: Doxycycline 100 MG CAP PO SCH ×2 (09:04→20:41)
[2019-09-23] MEDS: Lisinopril 10 MG TAB PO SCH (09:04)
[2019-09-23] MEDS: Folic Acid 1 MG TAB PO SCH ×2 (09:05→20:40)
[2019-09-23] MEDS: IPRATROPIUM BROMIDE EA NARE SCH ×2 (09:07→20:40)
[2019-09-23] MEDS: Omega-3 Acid Ethyl Esters [Lovaza] 1 GM PO SCH ×2 (09:07→20:39)
[2019-09-23] MEDS: Fluticasone Propionate Nasal Spray 16 gm Bottle NASAL SCH (09:08)
[2019-09-23] MEDS: HYDROcodone/Acetaminophen 10/325 mg Tablet PO PRN ×2 (16:25→21:56)
[2019-09-23] MEDS: Rosuvastatin 10 MG TAB PO SCH (20:37)
[2019-09-23] MEDS: Polyethylene Glycol 3350 17 GM Packet PO SCH (20:39)
[2019-09-23] MEDS: Nicotine 7 MG PATCH TD SCH (20:40)
[2019-09-23] MEDS: Loratadine 10 MG TAB PO SCH (20:40)
[2019-09-23] MEDS: Aspirin Chewable 81 MG TAB PO SCH (20:41)
[2019-09-23] MEDS: Fenofibrate Nanocrystallized 145 MG TAB PO SCH (20:46)
[2019-09-24] MEDS: Ondansetron ODT 4 MG TAB PO PRN ×2 (06:15→12:08)
--- NOTE | 2019-09-24 07:37 | PRG ---
DATE OF SERVICE: 09/21/2019 SUBJECTIVE: The patient said he is doing okay this morning earlier. After breakfast, he was very nauseated, but this resolved after he received a Zofran. Physical Therapy is doing a dressing change on his left foot and reapplying his wound VAC. OBJECTIVE: GENERAL: The patient is alert, looks very comfortable, in no distress. VITAL SIGNS: His temp is 98.8, pulse 94, respirations are 16, O2 saturation 99 % on room air, blood pressure 166/73. LUNGS: Clear. HEART: Regular rate. ABDOMEN: Soft, nontender. EXTREMITIES: Left foot has been partially closed on 09/14. The open areas all trying to heal by secondary intention with the aid of wound VAC. Surrounding tissue is clean. Right foot dressing is dry. LABORATORY DATA: Shows H and H of 9.2 and 30.5, white cell count 6200 with 65% segs, 23% lymphocytes, and a platelet count of 357,000. Sodium 136, potassium 3.7, glucose 81, GFR greater than 90, albumin 2.9. ASSESSMENT: 1. Generalized weakness and deconditioning. a. Status post bilateral metatarsal amputation of the feet on 08/27/2019. b. Has been nonambulatory. c. Started some weightbearing on the right leg, but not yet on the left as of 09/21. 2. Hospitalized at [facility] from 08/27 until 09/20/2019 for severe peripheral vascular disease with below the knees small-vessel disease and with necrosis of the toes for which he underwent bilateral transmetatarsal guillotine type amputation on 08/27. Status post incision and debridement and closure of the right foot on 09/05. Status post incision and debridement and partial closure and application of a wound VAC on the left foot on 09/14. 3. Coronary artery disease. a. Status post coronary artery bypass in 1987. b. Status post stents x4 in 2005. c. Complicated by ischemic cardiomyopathy with improved ejection fraction from 40% to 45% to 50% to 55%. Presently no evidence of acute congestive heart failure as of 09/21. 4. Carotid artery disease. a. Status post bilateral carotid endarterectomy. 5. Peripheral vascular disease. a. Status post multiple angioplasty and bypasses to the lower extremities. b. Progression of peripheral vascular disease with severe small vessel disease below the knee and necrosis of the toes requiring bilateral transmetatarsal guillotine type amputation on 08/27/2019. 6. Hypertension. 7. Hypercholesterolemia. 8. Tobacco abuse. a. Stopped smoking in 1987. b. Chronic smokeless tobacco use. Trying to stop. 9. Hyperlipidemia. 10. Status post dual-chamber pacemaker placement. History of bradycardia with syncope. PLAN: Continue present wound care to the left foot. Continue PT and OT. Continue present medicines. Job ID: [id number] [facility]
--- NOTE | 2019-09-24 07:38 | PRG ---
DATE OF SERVICE: 09/22/2019 SUBJECTIVE: Last evening, patient had a nosebleed. The right side stopped easily, but the left side lasted a little longer. Afrin nasal spray was used, pressure , and then patient using a little Kleenex as a packing. The bleeding stopping and has not reoccurred. He has periods like this. Lately he has been sleeping a lot and that nodding off throughout the day. His thinks it is from the pain medication, maybe the fentanyl patch. Last evening he did not require the hydrocodone, but plain Tylenol. OBJECTIVE: GENERAL: Patient was alert this morning, answered questions appropriately, seemed comfortable but he did drift off while I was in there, visiting with his . VITAL SIGNS: Temperature 97.3, pulse 93, blood pressure 166/73, respirations 18 , O2 saturation 97% on room air. NOSE: There is no bleeding. LUNGS: Clear. HEART: Regular rate. EXTREMITIES: Dressings of his feet are dry. Yesterday when patient received his Lovenox, he was having a little bloody oozing from the injection site. The Lovenox and aspirin have been held due to the nosebleed. ASSESSMENT: 1. Generalized weakness and deconditioning. a. Status post bilateral transmetatarsal amputation of the feet on 2019. b. It has left him nonambulatory. 2. Hospitalized at [facility] from 08/27 to 09/20/19 for severe peripheral vascular disease with [id number] small-vessel disease with necrosis of the toes for which he underwent bilateral transmetatarsal guillotine type amputation on 08/27. Status post incision and debridement and closure of the right foot on . Status post incision and debridement of the left foot with partial closure and application of a wound VAC to the left foot on 09/14. 3. Coronary artery disease. a. Status post coronary artery bypass in 1987. b. Status post stents x4 in 2005. c. Complicated by ischemic cardiomyopathy with improvement in the ejection fraction from 40% to 45% to 50% to 55%. Presently no evidence of CHF as of 04/03. 4. Carotid artery disease. a. Status post bilateral carotid endarterectomy. 5. Peripheral vascular disease. a. Status post multiple angioplasties and bypass to the lower extremities. b. Most recent bilateral transmetatarsal guillotine type amputation for severe peripheral vascular disease with small vessel disease and necrosis of the toes. 6. Hypertension. 7. Hypercholesterolemia. 8. Tobacco abuse. a. Stopped smoking in 1987. b. Chronic smokeless tobacco use. Trying to stop. 9. Hyperlipidemia. 10. Status post dual chamber pacemaker placement. a. For bradycardia with syncope. No recurrence. 11. Nosebleeds on the evening of 09/21/2019. 12. Lethargy. a. Probably secondary to the effect of the fentanyl and possibly the Seroquel at bedtime. PLAN: The patient has not had any more nosebleeds. We will leave off the Lovenox since he was oozing from the sites of the injection. We will also restart his aspirin but at a lower dose and see if he will tolerate this, may utilize nasal saline to help keep the nasal mucosa moist. We will reduce the fentanyl patch from 100 mcg/hour to 50 mcg/hour and then if pain is still well tolerated, gradually try stopping this. He still has the hydrocodone to use if he needs for breakthrough pain. We will also stop the Seroquel at bedtime. Job ID: [id number] MTDD
--- NOTE | 2019-09-24 07:39 | PRG ---
DATE OF SERVICE: 09/23/2019 SUBJECTIVE: The patient said he is doing better. He had a good night. His pain seemed to be well controlled. His fentanyl was reduced to 50 mcg/hour and this has seemed to have helped with his lethargy. He has been using Tylenol and hydrocodone if needed. The patient has not had any recurrence of the nosebleed. OBJECTIVE: GENERAL: The patient is sitting up on the side of the bed. He is alert and talkative, was not sleepy during my visit. He looks in no distress. VITAL SIGNS: His temperature 96.7, pulse 85, respirations 18, O2 saturation 99 on room air, and blood pressure 130/63. LUNGS: Clear. HEART: Regular rate. EXTREMITIES: Both feet are wrapped. There is a wound VAC on the left foot. ASSESSMENT: 1. Generalized weakness and deconditioning. a. Status post bilateral transmetatarsal amputation of the feet on 08/27/2019. b. Has left him nonambulatory. 2. Hospitalized at [facility] from 08/27/2019 until 09/20/2019 for severe peripheral vascular disease with [id number]-[id number]-[id number] small vessel disease with necrosis of the toes, for which he underwent bilateral transmetatarsal guillotine type amputation on 08/27. Status post incision and debridement and closure of the wound on the right foot on 09/05. Status post incision and debridement and partial closure and application of wound VAC to the left foot on 09/14. 3. Coronary artery disease. a. Status post coronary artery bypass in 1987. b. Status post stents x4 in 2005. c. Complicated by ischemic cardiomyopathy with improvement in the ejection fraction from 40% to 45% to 50% to 55%. Presently, no evidence of acute congestive heart failure as of 09/23. 4. Carotid artery disease. a. Status post bilateral carotid endarterectomy. 5. Peripheral vascular disease. a. Status post multiple angioplasties and bypass to the lower extremities, the most recent bilateral transmetatarsal guillotine type amputation 08/27/2019 for severe peripheral vascular disease with small vessel disease [id number] and necrosis of the toes. 6. Hypertension. 7. Hypercholesterolemia. 8. Tobacco abuse. a. Stopped cigarettes in 1987. b. Chronic smokeless tobacco use. Trying to stop. 9. Status post dual-chamber pacemaker placement. a. History of bradycardia with syncope. No recurrence since pacemaker placed. 10. Nosebleed on the evening of 09/21. a. No recurrence as of 09/23. 11. Lethargy. a. Secondary to the effect of the pain medication. b. Improved since fentanyl dosage cut from 100 to 50 mcg/hour on 09/22/2019, improved as of 09/23. PLAN: Continue present care. Continue present wound care. Continue PT and OT. Job ID: [id number]
[2019-09-24] MEDS: Saccharomyces boulardii 250 MG CAP PO SCH (09:13)
[2019-09-24] MEDS: Ubidecarenone 50 MG CAP PO SCH (09:13)
[2019-09-24] MEDS: Doxycycline 100 MG CAP PO SCH ×2 (09:13→20:52)
[2019-09-24] MEDS: Carvedilol 3.125 MG TAB PO SCH ×2 (09:13→17:10)
[2019-09-24] MEDS: Folic Acid 1 MG TAB PO SCH ×2 (09:14→20:52)
[2019-09-24] MEDS: Lisinopril 10 MG TAB PO SCH (09:14)
[2019-09-24] MEDS: Omega-3 Acid Ethyl Esters [Lovaza] 1 GM PO SCH ×2 (09:14→21:02)
[2019-09-24] MEDS: HYDROcodone/Acetaminophen 10/325 mg Tablet PO PRN (09:14)
[2019-09-24] MEDS: IPRATROPIUM BROMIDE EA NARE SCH ×3 (09:14→23:25)
[2019-09-24] MEDS: Fluticasone Propionate Nasal Spray 16 gm Bottle NASAL SCH (09:14)
--- NOTE | 2019-09-24 11:12 | PRG ---
DATE OF SERVICE: 09/24/2019 SUBJECTIVE: The patient said he is not having the sleepiness since the fentanyl patch was decreased. This has resolved. He is having trouble getting his days and nights mixed up, so he does sleep well at night. His feet are doing okay. The pain seems to be controlled well and he has to occasionally take the hydrocodone. He is scheduled to have the wound of the left foot dressed today. He has had no more nosebleed. OBJECTIVE: GENERAL: The patient is lying in bed, alert, appears comfortable, in no acute distress. VITAL SIGNS: His temp is 97.9, pulse 83, respirations 16, O2 saturation 100% on room air, blood pressure 147/77. LUNGS: Clear. HEART: Regular rate. EXTREMITIES: Dressings in the feet are dry. He has a wound VAC on the left foot. ASSESSMENT: 1. Generalized weakness and deconditioning. a. Status post bilateral transmetatarsal amputation of the feet on 2019. b. Has left him nonambulatory. c. Physical therapy and OT working with him. He is starting to weightbear little bit on the right foot. 2. Hospitalized at [facility] from 08/27 until 09/20/2019 for severe peripheral vascular disease with [id number] small-vessel disease with necrosis of the toes for which he underwent a bilateral transmetatarsal guillotine type amputation on 08/27. 3. Status post incision and debridement, closure of the wound on the right foot on 09/05. Status post incision, debridement and partial closure and application of wound VAC to the left foot on 09/14. 4. Coronary artery disease. a. Status post coronary artery bypass in 1987. b. Status post stents x4 in 2005. c. Complicated by ischemic cardiomyopathy with improvement in the ejection fraction of 40% to 45% to 50% to 55%. Presently, no evidence of acute congestive heart failure as of 09/24. 5. Carotid artery disease. a. Status post bilateral carotid endarterectomy. 6. Peripheral vascular disease. a. Status post multiple angioplasties and bypass to the lower extremity. Recent bilateral transmetatarsal guillotine type amputation on 08/27/2019 for severe peripheral vascular disease with small vessel disease below the knees and necrosis of the toes. 7. Hypertension. 8. Hypercholesterolemia. 9. Tobacco abuse. a. Stopped cigarettes in 1987. b. Chronic smokeless tobacco use. Trying to stop. 10. Status post dual-chamber pacemaker placement. a. Indication for bradycardia and syncope. No recurrence. 11. Nosebleeds on the evening of 09/21. a. No recurrence as of 09/24/2019. 12. Lethargy. a. Secondary to the effect of the pain medication. b. Improved since fentanyl dose is cut from 100 to 50 mcg/hour on 09/22. PLAN: Continue present care. Continue present wound care. Job ID: [id number] MTDD
[2019-09-24] MEDS ORDERED: Sodium Chloride Irrig Solution 250 ML BOT ONE (12:28)
[2019-09-24] MEDS: Acetaminophen 325 MG TAB PO PRN ×2 (18:32→23:24)
[2019-09-24] MEDS ORDERED: Senokot 8.6 MG TAB PO PRN (20:48)
[2019-09-24] MEDS: Polyethylene Glycol 3350 17 GM Packet PO SCH (20:50)
[2019-09-24] MEDS: Nicotine 7 MG PATCH TD SCH (20:50)
[2019-09-24] MEDS: Rosuvastatin 10 MG TAB PO SCH (20:52)
[2019-09-24] MEDS: Fenofibrate Nanocrystallized 145 MG TAB PO SCH (20:54)
[2019-09-24] MEDS: Aspirin Chewable 81 MG TAB PO SCH (20:55)
[2019-09-24] MEDS: Loratadine 10 MG TAB PO SCH (20:58)
[2019-09-24] MEDS ORDERED: Melatonin 3 MG TAB PO PRN (23:41)
[2019-09-24] MEDS ORDERED: Melatonin 3 MG TAB PO SCH (23:45)
[2019-09-25 07:00] VITALS: BP 147/69; TEMP 97.9
[2019-09-25] MEDS ORDERED: Temazepam 15 MG CAP PO PRN (08:38)
[2019-09-25] MEDS: Fluticasone Propionate Nasal Spray 16 gm Bottle NASAL SCH (08:52)
[2019-09-25] MEDS: Folic Acid 1 MG TAB PO SCH (08:53)
[2019-09-25] MEDS: Doxycycline 100 MG CAP PO SCH (08:53)
[2019-09-25] MEDS: Carvedilol 3.125 MG TAB PO SCH ×2 (08:53→16:42)
[2019-09-25] MEDS: Ubidecarenone 50 MG CAP PO SCH (08:54)
[2019-09-25] MEDS: Lisinopril 10 MG TAB PO SCH (08:54)
[2019-09-25] MEDS: Saccharomyces boulardii 250 MG CAP PO SCH (08:54)
[2019-09-25] MEDS: Omega-3 Acid Ethyl Esters [Lovaza] 1 GM PO SCH (08:55)
--- NOTE | 2019-09-25 09:27 | PRG ---
DATE OF SERVICE: 09/25/2019 SUBJECTIVE: The patient said he just did not sleep any at all the last few nights. He has tried on Benadryl which had reversal effect. He was tried on melatonin last night. He has just asked for something to try to help him with his sleep. They did not hear back from Dr. Kendall yesterday regarding the wound. Instead of the wound VAC on the left foot, I have used a wet-to-dry dressing. OBJECTIVE: GENERAL: The patient is sitting up. He is alert, appears comfortable, in no distress. VITAL SIGNS: Show a temperature 97.9, pulse 72, respirations 16, O2 saturation 99% on room air, blood pressure 147/69. LUNGS: Clear. HEART: Regular rate. EXTREMITIES: Left foot, wound looks better. Along the lateral edge, the skin is blackened, but the wound bed looks more moist and the foot looks better with wet-to-dry dressing. This will be continued. Photo to be reviewed by surgeon, Dr Kendall, who will make further recommendations. ASSESSMENT: 1. Generalized weakness and deconditioning. a. Status post bilateral transmetatarsal amputation of the feet on 2019. b. Has left him nonambulatory. c. PT and OT worked with him. He is now starting to weightbear a little on the right foot. 2. Hospitalized at [facility] from 08/27/2019 to 09/20/2019 for severe peripheral vascular disease with [id number] small-vessel disease with necrosis of the toes, for which he underwent a bilateral transmetatarsal guillotine-type amputation on 08/27/2019. Status post incision and debridement and closure of the wound of the right foot on 09/05/2019. Status post incision, debridement, and partial closure and application of wound VAC to the left foot on 09/14/2019. 3. Coronary artery disease. a. Status post coronary artery bypass in 1987. b. Status post stents x4 in 2005. c. Complicated by ischemic cardiomyopathy with improvement in the ejection fraction of 40% to 45% to 50% to 55%. Presently, no evidence of acute congestive heart failure as of 09/25/2019. 4. Carotid artery disease. a. Status post bilateral carotid endarterectomy. 5. Peripheral vascular disease. a. Status post multiple angioplasties and bypass of the lower extremities. Recent bilateral transmetatarsal guillotine-type amputation on 08/27/2019 for severe peripheral vascular disease with small vessel disease below the knees with necrosis of the toes. 6. Hypertension. 7. Hypercholesterolemia. Tobacco abuse. a. Stopped cigarettes in 1987. b. Chronic smokeless tobacco use, trying to stop. 8. Status post dual-chamber pacemaker placement. a. Indicated for bradycardia with syncope. No recurrence. 9. Nosebleed on the evening of 09/21/2019. a. No recurrence as of 09/25/2019. 10. Lethargy. a. Secondary to the effect of the pain medicine. b. Improved since fentanyl dose reduced on 09/22/2019. 11. Insomnia. PLAN: We will continue present care of the left foot with a wet-to-dry dressing. Continue PT and OT. We will try the patient on Restoril 15 mg at bedtime. Job ID: [id number] MTDD
[2019-09-25] MEDS: fentaNYL 50 mcg/hour Patch TD SCH (11:56)
[2019-09-25] MEDS: HYDROcodone/Acetaminophen 10/325 mg Tablet PO PRN (15:34)
== END 2019-09-25 18:51 | disposition short-term general hospital (02) | DRG 561 ==
LOC: MADMS 13:23
PROVIDERS: ADMIT Family Medicine; ATTEND Family Medicine
DX: Z47.81 Encounter for orthopedic aftercare following surgical amputation (principal); Z89.431 Acquired absence of right foot; R53.1 Weakness; I25.10 Atherosclerotic heart disease of native coronary artery without angina pectoris; Z95.5 Presence of coronary angioplasty implant and graft; Z96.651 Presence of right artificial knee joint; Z88.8 Allergy status to other drugs, medicaments and biological substances; Z89.432 Acquired absence of left foot; Z95.1 Presence of aortocoronary bypass graft; I25.5 Ischemic cardiomyopathy; I10 Essential (primary) hypertension; E78.00 Pure hypercholesterolemia, unspecified; E78.5 Hyperlipidemia, unspecified; Z95.0 Presence of cardiac pacemaker; F17.200 Nicotine dependence, unspecified, uncomplicated; Z71.6 Tobacco abuse counseling; Z98.890 Other specified postprocedural states; R04.0 Epistaxis; R53.83 Other fatigue; T50.995A Adverse effect of other drugs, medicaments and biological substances, initial encounter; G47.00 Insomnia, unspecified
CPT/HCPCS: 36415; 80048; 80053; 85025; 97602; J1650; Q0162

== ENCOUNTER 2019-10-01 16:20 | Inpatient (IN) | payer MEDICARE, BC ==
[2019-10-01] MEDS ORDERED: traMADol HCl 50 MG TAB PO PRN (18:15)
[2019-10-01] MEDS ORDERED: HYDROcodone/Acetaminophen 10/325 mg Tablet PO PRN (18:15)
[2019-10-01] MEDS ORDERED: guaiFENesin ER 600 MG TAB PO PRN (18:15)
[2019-10-01] MEDS: HYDROcodone/Acetaminophen 10/325 mg Tablet PO PRN (19:47)
[2019-10-01] MEDS: Fenofibrate Nanocrystallized 145 MG TAB PO SCH (20:56)
[2019-10-01] MEDS: Carvedilol 3.125 MG TAB PO SCH (20:56)
[2019-10-01] MEDS: Loratadine 10 MG TAB PO SCH (20:56)
[2019-10-01] MEDS: Doxycycline 100 MG CAP PO SCH (20:56)
[2019-10-01] MEDS: Aspirin 325 MG TAB PO SCH (20:56)
[2019-10-01] MEDS: IPRATROPIUM BROMIDE EA NARE SCH (20:57)
[2019-10-01] MEDS: Rosuvastatin 10 MG TAB PO SCH (20:58)
[2019-10-01] MEDS: OMEGA ACID ETHYL ESTERS PO SCH (20:58)
[2019-10-01] MEDS: Temazepam 15 MG CAP PO PRN (20:59)
[2019-10-01] MEDS: Polyethylene Glycol 3350 17 GM Packet PO SCH (21:04)
--- NOTE | 2019-10-02 05:33 | HP ---
CHIEF COMPLAINT: Weakness following amputation of his left lower leg for severe peripheral vascular disease. HISTORY OF PRESENT ILLNESS: The patient is a 74-year-old white male, who has severe generalized atherosclerosis, for which he has undergone coronary artery bypass in 1987, stent placement x4 in 2005, bilateral carotid endarterectomies, and multiple angioplasties and bypass procedures to the lower extremities. He has a long history of cigarette abuse, stopped smoking in 1987, but has continued to use smokeless tobacco, which he is trying to quit. He has severe small-vessel disease below the knees and developed gradual ischemia of the toes and eventual necrosis of the toes. He was hospitalized at [facility] from 08/27 to 10/04, and underwent on 08/27, a bilateral guillotine type transmetatarsal amputation. He then on 09/05/2019, underwent an incision, debridement, closure of the wound of the right foot, and on 09/14/2019, underwent incision, debridement, and partial wound closure with a VAC application to the left foot. He was transferred to [facility] for extended care for rehabilitation and wound care with the VAC. During his hospitalization, the wound on the left foot showed signs of further ischemic changes with necrotic changes around the edges. He was transferred back to [facility] to the care of his cardiovascular surgeon, Dr. Fareed Kendall. He was admitted there from 09/25 until 10/01/2019. He underwent a left irkad-xar-rjkv amputation on 09/26/2019, for chronic ischemia of the left foot, nonhealing amputation of the left foot. The patient has done very well postop and has now been sent back to [facility] for continued rehabilitation. His BK amputation has been closed with shashank, which are to be left in until he is seen in followup by Dr. Kendall one month from the time of the surgery, i.e., 10/24. The patient said he is feeling better, just weak. He said he is sleeping a lot better since the Restoril was started. PAST MEDICAL HISTORY: Hospitalized at [facility] from 08/27 to 2019 for severe peripheral vascular disease with egabp-ime-bkef small-vessel disease with necrosis of the toes, for which he underwent bilateral transmetatarsal guillotine type amputation on 08/27/2019. Status post incision and debridement and closure of the wound of the right foot on 09/05. Status post incision, debridement, and partial closure and application of a VAC system to the left foot on 09/14/2019. Hospitalized at [facility] from 09/20 to 09/25/2019 for rehabilitation wound care with further ischemic changes and breakdown of the wound of the left foot, necessitating re-transfer back to [facility] and rehospitalized at [facility] from 09/25 until 10/01 for BK amputation of the left leg. Coronary artery disease, for which he has undergone coronary artery bypass in 1987 and has had stent placed x4 in 2005, is complicated by ischemic cardiomyopathy that has had an improvement in the ejection fraction from 40% to 45% to 50% to 55%. Carotid artery disease, for which he has undergone bilateral carotid endarterectomy, peripheral vascular disease for which he has undergone multiple angioplasties and bypass and then the above amputations of the feet and the left lower leg. Hypertension, hypercholesterolemia, tobacco abuse, stopped smoking in 1987, long history of smokeless tobacco use, which he is trying to quit. Dual chamber pacemaker placement for bradycardia and syncope; insomnia, controlled on Restoril; history of herpes zoster involving the eye. He has had carpal tunnel release in May 2015, diverticulosis, colonoscopies on several times. He has had a right total knee replacement in November 2016. PRESENT MEDICINES: 1. Pantoprazole 40 mg daily. 2. Tramadol 50 mg one or two every 6 hours as needed for pain. 3. Temazepam 15 mg at bedtime as needed. 4. Nicotine patch 7 mg daily. 5. Carvedilol 3.125 mg b.i.d. 6. Fenofibrate 145 mg at bedtime. 7. Doxycycline 100 mg b.i.d. 8. Aspirin 325 mg at bedtime. 9. Acetaminophen 325 mg two every 4 hours as needed. 10. Fluticasone two sprays in each nares daily. 11. Atrovent 0.03% nasal spray 1 mL in each nares b.i.d. 12. Hydrocodone/acetaminophen 10/325 one or two every 4 hours as needed. 13. Loratadine 10 mg at bedtime. 14. Lisinopril 10 mg daily. 15. Levofloxacin 500 mg daily. 16. Lovaza two b.i.d. 17. MiraLAX 17 g in 8 ounces water at bedtime. 18. Ranexa 1000 mg b.i.d. 19. Florastor 250 mg daily. 20. Rosuvastatin 40 mg at bedtime. 21. CoQ10 of 100 mg daily. 22. Guaifenesin ER 600 mg every 12 hours as needed. 23. Fentanyl 100 mcg every three days. ALLERGIES: NO KNOWN ALLERGIES. REVIEW OF SYSTEMS: GENERAL: The patient said he is feeling a lot better. He has had no fever. He says he is sleeping good. Appetite is still not real good. HEAD AND NECK: No complaints. PULMONARY: No shortness of breath. CARDIOVASCULAR: No chest pain. GI: No nausea or vomiting. No change in bowel habits. : No complaints. ADLS: Prior to his amputations, he had been independent of all his ADLs. Presently, he is requiring help with all his ADLs. He is able to feed himself. HABITS: Alcohol, none. Tobacco, smokeless tobacco that he has used for many years, but trying to quit. Smoked cigarettes, but stopped in 1987. SOCIAL HISTORY: The patient is , lives with his . CODE STATUS: Full code. PHYSICAL EXAMINATION: GENERAL: Shows a very pleasant 74-year-old white male, who is sitting up in bed. He is alert, appears very comfortable, oriented x3 and appears in no distress. VITAL SIGNS: Temperature 97.7, pulse 76, respirations 16, O2 saturation 99% on room air, blood pressure 145/65, and his weight 136. HEENT: Head; normocephalic, male pattern baldness. Ears, TMs are clear. Eyes, pupils are equal, round, and reactive. Sclerae nonicteric. Nose, normal. Mouth and throat, normal. NECK: Carotids are equal and strong. No bruits. Thyroid not enlarged. LUNGS: Clear. HEART: Regular rate. No murmurs. ABDOMEN: Soft. No organomegaly. No areas of tenderness. EXTREMITIES: Lower extremities; the patient has a stockinette type dressing over his BK amputation with a dressing under this. Wound had been closed with shashank. In the right foot, the patient has had a transmetatarsal amputation. The wound is healing, just has a dry dressing over this. NEUROLOGIC: The patient is alert and oriented x3. Has weakness of the lower extremities. Otherwise, no focal weakness. IMPRESSION: 1. Generalized weakness and deconditioning. a. Status post bilateral transmetatarsal amputation of the feet on 2019. b. Status post BK amputation of the left leg due to continued ischemic changes and nonhealing of the recent amputation of transmetatarsal BK amputation done on 09/26/2019. c. This patient has been left nonambulatory. 2. Hospitalized at [facility] from 08/27/2019 until 09/20/2019 for severe peripheral vascular disease with yhufo-gxc-fqic small-vessel disease with necrosis of the toes, for which he underwent a bilateral transmetatarsal guillotine type amputation on 08/27/2019. Status post incision and debridement, closure of the wound of the right foot on 09/05/2019. Status post incision, debridement, partial closure and application of wound VAC to the left foot on 09/14. 3. Hospitalized at [facility] from 09/20 to 09/25 for rehab and wound care. Left foot showed progressive ischemic changes requiring transfer back to [facility] on 09/25. 4. Hospitalized at [facility] from 09/25 until 10/01/2019 for BK amputation of the left leg on 09/26. 5. Coronary artery disease. a. Status post coronary artery bypass in 1987. b. Status post stents x4 in 2005. c. Complicated by ischemic cardiomyopathy with improved ejection fraction from 40% to 45% to 50% to 55%. Presently, no evidence of acute congestive heart failure as of 10/01/2019. 6. Carotid artery disease. a. Status post bilateral carotid endarterectomy. 7. Peripheral vascular disease. a. Status post multiple angioplasties, bypass in lower extremities, recent transmetatarsal guillotine type amputation on 09/14/2019 for severe peripheral vascular disease with small vessel disease below the knees with necrosis of the toes. b. Breakdown of the incision of the left foot with further necrosis of the edges and ischemic changes necessitating BK amputation of the left leg on 2019. 8. Hypertension. 9. Hypercholesterolemia. 10. Tobacco abuse. a. Stopped smoking cigarettes in 1987. b. Chronic smokeless tobacco use trying to quit. 11. Status post dual-chamber pacemaker placement. a. Indicated for bradycardia with syncope, no recurrence. 12. Insomnia. a. Controlled on Restoril. PLAN: The patient has been readmitted to [facility]. The dry dressing will be kept over the right foot and over the BK amputation site. He is to see Dr. Fareed Kendall, cardiovascular surgeon in followup around 10/24. At that time, sutures will be removed. PT will work with him. He may weightbear on the right foot within his tolerance. We will cut back on the fentanyl patch to 50 mcg/ hour since he had trouble with lethargy on 100 mcg previously. We will utilize Tramadol for pain and also for more severe pain, hydrocodone. Continue his routine medicine. Continue the Restoril at bedtime. Code status, full code. Job ID: [id number] MTDD
[2019-10-02 05:39] LABS: Anisocytosis MODERATE=16-30 cells (100X) (0-5/hpf); Basophilic Stippling SLIGHT = 1-2 cells (100X) (None Seen); Elliptocytes SLIGHT = 2-5 cells (100X) (0-1/hpf); Eosinophils 7 % (0-10); Lymphocytes 37 % (21-51); MDiff Complete? YES; Mean Corpuscular HGB CONC 30.1 g/dL (32.0-36.0); Mean Corpuscular Hemoglobin 26.7 pg (27.0-31.0); Mean Corpuscular Volume 88.5 fL (78.0-98.0); Mean Platelet Volume 5.8 fL (7.4-10.4); Monocytes 7 % (0-10); Neutrophil 49 % (42-75); Platelet Count 326 thou/uL (130-400); RBC Distribution Width 19.9 % (11.5-14.5); Red Blood Cell (RBC) Count 3.37 mill/uL (4.70-6.10); White Blood Cell (WBC) Count 5.4 thou/uL (4.8-10.8)
[2019-10-02 05:43] LABS: ALT (SGPT) 22 U/L (8-55); AST (SGOT) 53 U/L (5-34); Albumin 2.8 g/dL (3.4-4.8); Alkaline Phosphatase 27 U/L (40-110); Anion Gap 11 mmol/L (10-20); BUN (Urea Nitrogen) 13 mg/dL (8.4-25.7); Bilirubin, Total 0.7 mg/dL (0.2-1.2); Calc. Creatinine Clearance 67 mL/min (70-130); Calcium 9.1 mg/dL (7.8-10.44); Carbon Dioxide 27 mmol/L (23-31); Chloride 101 mmol/L (98-107); Estimated GFR-MDRD 88; Globulin 3.8 g/dL (2.4-3.5); Glucose 86 mg/dL (83-110); Potassium 4.1 mmol/L (3.5-5.1); Protein, Total 6.6 g/dL (5.8-8.1); Sodium 135 mmol/L (136-145)
[2019-10-02] MEDS: Fluticasone Propionate Nasal Spray 16 gm Bottle NASAL SCH (08:38)
[2019-10-02] MEDS: Saccharomyces boulardii 250 MG CAP PO SCH (08:41)
[2019-10-02] MEDS: Lisinopril 10 MG TAB PO SCH (08:41)
[2019-10-02] MEDS: Ubidecarenone 50 MG CAP PO SCH (08:41)
[2019-10-02] MEDS: Carvedilol 3.125 MG TAB PO SCH ×2 (08:42→21:30)
[2019-10-02] MEDS: Doxycycline 100 MG CAP PO SCH ×2 (08:42→21:29)
[2019-10-02] MEDS: Nicotine 7 MG PATCH TD SCH ×2 (08:42→08:46)
[2019-10-02] MEDS: IPRATROPIUM BROMIDE EA NARE SCH ×2 (08:45→21:23)
[2019-10-02] MEDS: OMEGA ACID ETHYL ESTERS PO SCH ×2 (08:45→21:24)
--- NOTE | 2019-10-02 10:00 | PRG ---
DATE OF SERVICE: 10/02/2019 SUBJECTIVE: The patient said he had a good night. He had a little pain last evening, but the hydrocodone took care of this. He slept good. OBJECTIVE: GENERAL: The patient is sitting up in bed. He is alert, appears comfortable, in no distress. VITAL SIGNS: His temperature 97.2, pulse 70, respirations 18, O2 saturation 99 % on room air, and blood pressure 116/58. LUNGS: Clear. HEART: Regular rate. EXTREMITIES: Right foot, the patient has had a transmetatarsal amputation on . The wound is healing. There is a little eschar along the incision, but overall , looks like it is healing well. The left leg, he has had a BK amputation on . The incision has been stapled. The wound looks like it is healing well. LABORATORY DATA: His lab shows an H and H of 9 and 29.8, white cell count 5400 with 49% segs, 37% lymphocytes, and a platelet count of 326,000. Sodium 135, potassium 4.1, BUN 13, creatinine 0.85, AST 53, and albumin 2.8. ASSESSMENT: 1. Generalized weakness and deconditioning. a. Status post bilateral metatarsal amputation of the feet on 08/27. b. Status post below-knee amputation of the left leg due to continual ischemic changes and nonhealing recent amputation at the transmetatarsal level done. c. Presently nonambulatory. 2. Status post transmetatarsal guillotine-type amputation of the left foot. a. Healing well as of 10/02. 3. Status post below-knee amputation of the left leg, following progressive ischemic changes and breakdown of the wound from the transmetatarsal amputation on , below-knee amputation done on 09/26. a. Doing well as of 10/02. 4. Coronary artery disease. a. Status post coronary artery bypass in 1987. b. Status post stents x4 in 2005. c. Complicated by ischemic cardiomyopathy with an improvement in the ejection fraction from 40% to 45% to 50% to 55%. Presently, no evidence of acute congestive heart failure as of 10/02. 5. Carotid artery disease, status post bilateral carotid endarterectomy. 6. Hypertension. 7. Hypercholesterolemia. 8. Tobacco abuse. a. Stopped smoking in 1987. b. Chronic smokeless tobacco use, trying to quit, presently on nicotine patch. 9. Status post dual-chamber pacemaker placement. a. Indicated for bradycardia and syncope, no recurrence. 10. Insomnia. a. Controlled on Restoril. PLAN: Continue just local cleansing of the amputation site and application of the knitting machine tender dressing on the left leg. PT and OT will continue working with the patient. Job ID: [id number] MTDD
[2019-10-02] MEDS: HYDROcodone/Acetaminophen 10/325 mg Tablet PO PRN (18:20)
[2019-10-02] MEDS: Rosuvastatin 10 MG TAB PO SCH (21:27)
[2019-10-02] MEDS: Polyethylene Glycol 3350 17 GM Packet PO SCH (21:28)
[2019-10-02] MEDS: Fenofibrate Nanocrystallized 145 MG TAB PO SCH (21:29)
[2019-10-02] MEDS: Loratadine 10 MG TAB PO SCH (21:29)
[2019-10-02] MEDS: Aspirin 325 MG TAB PO SCH (21:30)
[2019-10-02] MEDS: Temazepam 15 MG CAP PO PRN (21:30)
[2019-10-03] MEDS: Doxycycline 100 MG CAP PO SCH ×2 (09:04→20:09)
[2019-10-03] MEDS: Carvedilol 3.125 MG TAB PO SCH ×2 (09:04→20:09)
[2019-10-03] MEDS: fentaNYL 50 mcg/hour Patch TD SCH (09:04)
[2019-10-03] MEDS: Fluticasone Propionate Nasal Spray 16 gm Bottle NASAL SCH (09:06)
[2019-10-03] MEDS: Lisinopril 10 MG TAB PO SCH (09:06)
[2019-10-03] MEDS: Nicotine 7 MG PATCH TD SCH (09:07)
[2019-10-03] MEDS: IPRATROPIUM BROMIDE EA NARE SCH ×2 (09:08→20:12)
[2019-10-03] MEDS: OMEGA ACID ETHYL ESTERS PO SCH ×2 (09:08→20:12)
[2019-10-03] MEDS: Saccharomyces boulardii 250 MG CAP PO SCH (09:09)
[2019-10-03] MEDS: Ubidecarenone 50 MG CAP PO SCH (09:09)
--- NOTE | 2019-10-03 09:16 | PRG ---
DATE OF SERVICE: 10/03/2019 SUBJECTIVE: The patient said he rested good last night. It takes a little while for the sleep medicine to kick in. He plans on taking it a little bit earlier in the evening. His pain is well controlled. He is working with Physical Therapy, said they have him with strengthening exercise. He is standing some on the right leg and steadying with walker. OBJECTIVE: GENERAL: The patient is alert, talkative, appears comfortable, in no distress. VITAL SIGNS: Temperature 97.9, pulse 77, respirations 16, O2 saturation 99% on room air, blood pressure 119/60. LUNGS: Clear. HEART: Regular rate. EXTREMITIES: Dressings on right foot and the stump of the left leg are dry. ASSESSMENT: 1. Generalized weakness and deconditioning: a. Status post bilateral metatarsal amputation of the feet on 08/27. b. Status post gplwt-fol-kvrq amputation of the left leg on 09/26/2019 for continued ischemic changes and necrotic changes and nonhealing of the amputation site of the transmetatarsal amputation done on 08/27. c. Presently nonambulatory. Physical Therapy has started working with him and he is now weightbearing on the right leg and steadying with a walker. 2. Status post transmetatarsal guillotine type amputation of the right foot: a. Healing well as of 10/03. 3. Status post jircv-twu-mjpf amputation of the left leg on 09/26/2019, following progressive ischemic changes and breakdown of the wound from the metatarsal amputation on 08/27. a. Doing well as of 10/03. 4. Coronary artery disease: a. Status post coronary artery bypass in 1987. b. Status post stent x4 in 2005. c. Complicated by ischemic cardiomyopathy with improvement in the ejection fraction from 40%-45% to 50%-55%. Presently no evidence of acute congestive heart failure as of 10/03. 5. Carotid artery disease, status post bilateral carotid endarterectomies. 6. Hypertension. 7. Hypercholesterolemia. 8. Tobacco abuse: a. Stopped smoking in 1987. b. Chronic smokeless tobacco use. Trying to quit, presently using a nicotine patch. 9. Status post pacemaker placement: a. Indicated for bradycardia and syncope. No recurrence. 10. Insomnia: a. Controlled on Restoril. PLAN: Continue present care. Continue PT and OT. Continue wound care. Job ID: [id number] MARCO
[2019-10-03] MEDS: Temazepam 15 MG CAP PO PRN (20:07)
[2019-10-03] MEDS: HYDROcodone/Acetaminophen 10/325 mg Tablet PO PRN (20:07)
[2019-10-03] MEDS: Rosuvastatin 10 MG TAB PO SCH (20:08)
[2019-10-03] MEDS: Aspirin 325 MG TAB PO SCH (20:09)
[2019-10-03] MEDS: Loratadine 10 MG TAB PO SCH (20:09)
[2019-10-03] MEDS: Polyethylene Glycol 3350 17 GM Packet PO SCH (20:09)
[2019-10-03] MEDS: Fenofibrate Nanocrystallized 145 MG TAB PO SCH (20:09)
[2019-10-04] MEDS: Ubidecarenone 50 MG CAP PO SCH (08:53)
[2019-10-04] MEDS: Lisinopril 10 MG TAB PO SCH (08:53)
[2019-10-04] MEDS: Saccharomyces boulardii 250 MG CAP PO SCH (08:53)
[2019-10-04] MEDS: Fluticasone Propionate Nasal Spray 16 gm Bottle NASAL SCH (08:54)
[2019-10-04] MEDS: Doxycycline 100 MG CAP PO SCH ×2 (08:54→20:15)
[2019-10-04] MEDS: Nicotine 7 MG PATCH TD SCH (08:54)
[2019-10-04] MEDS: Carvedilol 3.125 MG TAB PO SCH ×2 (08:54→20:15)
[2019-10-04] MEDS: OMEGA ACID ETHYL ESTERS PO SCH ×2 (08:56→20:20)
[2019-10-04] MEDS: IPRATROPIUM BROMIDE EA NARE SCH ×2 (08:56→20:20)
--- NOTE | 2019-10-04 09:03 | PRG ---
DATE OF SERVICE: 10/04/2019 SUBJECTIVE: The patient said he did not sleep too well last night. He is sleeping though off and on through in the daytime, which he will try to cut back on. He is working with Physical Therapy and he is able to work out for longer on a stationary bicycle, following this, he was little nauseated, for which he was given Zofran, which helped. OBJECTIVE: GENERAL: The patient is sitting up in bed. He is alert, talkative , and appears in no distress. VITAL SIGNS: His temperature is 97.8, pulse 82, respirations 16, O2 saturation 97% on room air, and blood pressure 119/57. LUNGS: Clear. HEART: Regular rate. EXTREMITIES: The dressing is dry, has a shrinking stockinette on the BK stump on the left. Dressing dry on the right foot. ASSESSMENT: 1. Generalized weakness and deconditioning. a. Status post bilateral metatarsal amputation of the feet on 08/27/2019. b. Status post kdqhk-pkf-[id number] amputation of the left leg on 09/26/2019 for continued ischemic changes, necrotic changes, not healing of the amputation site from the transmetatarsal amputation done on 08/27. c. Improving. PT is working with him on some weightbearing on the right leg and conditioning exercise as of 10/04. 2. 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 a. Healing well as of 10/03. 3. Status post ocfsi-grb-vvzh amputation of the left leg on 09/26/2019, following progressive ischemic changes and breakdown of the wound from the metatarsal amputation on 08/27. a. Doing well as of 10/04. 4. Coronary artery disease. a. Status post coronary artery bypass in 1987. b. Status post stents in 2005. c. Complicated by ischemic cardiomyopathy with improvement in the ejection fraction from 40% to 45% to 50% to 55%. Presently, no evidence of acute congestive heart failure as of 10/03. 5. Carotid artery disease, status post bilateral carotid endarterectomies. 6. Hypertension. 7. Hypercholesterolemia. 8. Tobacco abuse. a. Stopped smoking in 1987. b. Chronic smokeless tobacco use. Trying to quit, using nicotine patch. 9. Status post pacemaker placement. a. Indicated for bradycardia and syncope. No recurrence. 10. Insomnia. a. Overall improved, but had trouble last evening, probably due to the daytime sleeping as of 10/04. PLAN: Continue present care. Continue PT and OT. Try to minimize daytime sleeping. Job ID: [id number] MTDChelsea
[2019-10-04] MEDS: Aspirin 325 MG TAB PO SCH (20:12)
[2019-10-04] MEDS: Temazepam 15 MG CAP PO PRN (20:12)
[2019-10-04] MEDS: Polyethylene Glycol 3350 17 GM Packet PO SCH (20:12)
[2019-10-04] MEDS: Rosuvastatin 10 MG TAB PO SCH (20:12)
[2019-10-04] MEDS: HYDROcodone/Acetaminophen 10/325 mg Tablet PO PRN (20:13)
[2019-10-04] MEDS: Fenofibrate Nanocrystallized 145 MG TAB PO SCH (20:15)
[2019-10-04] MEDS: Loratadine 10 MG TAB PO SCH (20:16)
[2019-10-05] MEDS: Nicotine 7 MG PATCH TD SCH (09:36)
[2019-10-05] MEDS: IPRATROPIUM BROMIDE EA NARE SCH ×2 (09:37→20:09)
[2019-10-05] MEDS: Fluticasone Propionate Nasal Spray 16 gm Bottle NASAL SCH (09:37)
[2019-10-05] MEDS: OMEGA ACID ETHYL ESTERS PO SCH ×2 (09:39→20:10)
[2019-10-05] MEDS: Carvedilol 3.125 MG TAB PO SCH ×2 (09:39→20:07)
[2019-10-05] MEDS: Doxycycline 100 MG CAP PO SCH ×2 (09:39→20:06)
[2019-10-05] MEDS: Ubidecarenone 50 MG CAP PO SCH (09:40)
[2019-10-05] MEDS: Lisinopril 10 MG TAB PO SCH (09:40)
[2019-10-05] MEDS: Saccharomyces boulardii 250 MG CAP PO SCH (09:41)
--- NOTE | 2019-10-05 11:56 | PRG ---
DATE OF SERVICE: 10/05/2019 SUBJECTIVE: The patient said he had a little better night and slept a little better. His pain seems to be well controlled. He is working with Physical Therapy and thinks the wounds on his right foot and the incision on the left leg are doing well. Nurses did not report any problems. OBJECTIVE: GENERAL: The patient is sitting up in a chair, alert, talkative, and appears in no distress. VITAL SIGNS: Shows a temperature of 96.8, pulse 75, respirations 18, O2 saturation 100% on room air, blood pressure 130/61. LUNGS: Clear. HEART: Regular rate. EXTREMITIES: Dressings on stump of left lower leg and dry dressing on the right foot. Picture of the right foot shows the incision has overlying scab area gradually healing. The BK stump looks excellent. Incision healing well. Otis present. ASSESSMENT: 1. Generalized weakness and deconditioning. a. Status post bilateral metatarsal amputation of the feet on 08/27/2019. b. Status post ocamb-gfg-hcnn amputation of the left leg on 09/26 for continued ischemic change and necrotic changes and nonhealing of the amputation site from the transmetatarsal amputation on 08/27. c. Improving. PT working with the patient. Patient weightbear on the right leg as tolerated. 2. Status post transmetatarsal guillotine type amputation of the right foot. a. Gradually healing as of 10/05. 3. Status post rgztb-mrd-wggg amputation of the left leg on 09/26/19 following progressive ischemic change and wound breakdown from the metatarsal amputation on 08/27. a. Healing well as of 10/05. 4. Coronary artery disease. a. Status post coronary artery bypass in 1987. b. Status post stents x 4 in 2005. c. Complicated by ischemic cardiomyopathy with improvement in the ejection fraction from 40% to 45% to 50% to 55%. Presently no evidence of acute congestive heart failure as of 10/05. 5. Carotid artery disease status post bilateral carotid endarterectomies. 6. Hypertension. 7. Hypercholesterolemia. 8. Tobacco abuse. a. Stopped smoking in 1987. b. Chronic smokeless tobacco use, has not utilized the tobacco since in the hospital, on nicotine patch. 9. Status post pacemaker placement. a. Indicated for bradycardia and syncope. No recurrence. 10. Insomnia. a. Improved. PLAN: The patient is making gradual progress. PT and OT are working with him. He can weightbear on that right foot as tolerated. We will try stopping the nicotine patch. It is only a 7 mg but this could be contributing to his insomnia. Job ID: [id number] MTDD
[2019-10-05] MEDS: HYDROcodone/Acetaminophen 10/325 mg Tablet PO PRN (20:04)
[2019-10-05] MEDS: Rosuvastatin 10 MG TAB PO SCH (20:05)
[2019-10-05] MEDS: Polyethylene Glycol 3350 17 GM Packet PO SCH (20:06)
[2019-10-05] MEDS: Aspirin 325 MG TAB PO SCH (20:06)
[2019-10-05] MEDS: Fenofibrate Nanocrystallized 145 MG TAB PO SCH (20:06)
[2019-10-05] MEDS: Loratadine 10 MG TAB PO SCH (20:06)
[2019-10-06] MEDS: Doxycycline 100 MG CAP PO SCH ×2 (09:41→20:50)
[2019-10-06] MEDS: Carvedilol 3.125 MG TAB PO SCH ×2 (09:41→20:50)
[2019-10-06] MEDS: Ubidecarenone 50 MG CAP PO SCH (09:41)
[2019-10-06] MEDS: Saccharomyces boulardii 250 MG CAP PO SCH (09:41)
[2019-10-06] MEDS: fentaNYL 50 mcg/hour Patch TD SCH (09:42)
[2019-10-06] MEDS: Fluticasone Propionate Nasal Spray 16 gm Bottle NASAL SCH (09:43)
[2019-10-06] MEDS: OMEGA ACID ETHYL ESTERS PO SCH ×2 (09:44→21:10)
[2019-10-06] MEDS: IPRATROPIUM BROMIDE EA NARE SCH ×2 (09:44→21:09)
[2019-10-06] MEDS: Lisinopril 10 MG TAB PO SCH (09:47)
[2019-10-06] MEDS: Loratadine 10 MG TAB PO SCH (20:50)
[2019-10-06] MEDS: Aspirin 325 MG TAB PO SCH (20:50)
[2019-10-06] MEDS: Fenofibrate Nanocrystallized 145 MG TAB PO SCH (20:50)
[2019-10-06] MEDS: Polyethylene Glycol 3350 17 GM Packet PO SCH (20:52)
[2019-10-06] MEDS: Rosuvastatin 10 MG TAB PO SCH (20:53)
[2019-10-06] MEDS: HYDROcodone/Acetaminophen 10/325 mg Tablet PO PRN (20:54)
[2019-10-06] MEDS: Ondansetron ODT 4 MG TAB PO PRN (22:05)
[2019-10-07] MEDS: Saccharomyces boulardii 250 MG CAP PO SCH (08:42)
[2019-10-07] MEDS: Doxycycline 100 MG CAP PO SCH ×2 (08:42→21:09)
[2019-10-07] MEDS: Carvedilol 3.125 MG TAB PO SCH ×2 (08:42→21:09)
[2019-10-07] MEDS: Lisinopril 10 MG TAB PO SCH (08:42)
[2019-10-07] MEDS: Ubidecarenone 50 MG CAP PO SCH (08:43)
[2019-10-07] MEDS: Fluticasone Propionate Nasal Spray 16 gm Bottle NASAL SCH (08:44)
[2019-10-07] MEDS: IPRATROPIUM BROMIDE EA NARE SCH ×2 (08:45→21:16)
[2019-10-07] MEDS: OMEGA ACID ETHYL ESTERS PO SCH ×2 (08:45→21:16)
[2019-10-07] MEDS: Aspirin 325 MG TAB PO SCH (21:09)
[2019-10-07] MEDS: Fenofibrate Nanocrystallized 145 MG TAB PO SCH (21:09)
[2019-10-07] MEDS: Rosuvastatin 10 MG TAB PO SCH (21:10)
[2019-10-07] MEDS: Polyethylene Glycol 3350 17 GM Packet PO SCH (21:10)
[2019-10-07] MEDS: Loratadine 10 MG TAB PO SCH (21:10)
[2019-10-08] MEDS: Ondansetron ODT 4 MG TAB PO PRN ×2 (08:18→15:04)
[2019-10-08] MEDS ORDERED: fentaNYL 50 mcg/hour Patch TD SCH (09:00)
[2019-10-08] MEDS: Ubidecarenone 50 MG CAP PO SCH (10:12)
[2019-10-08] MEDS: Saccharomyces boulardii 250 MG CAP PO SCH (10:12)
[2019-10-08] MEDS: Lisinopril 10 MG TAB PO SCH (10:12)
[2019-10-08] MEDS: Doxycycline 100 MG CAP PO SCH ×2 (10:12→20:09)
[2019-10-08] MEDS: Carvedilol 3.125 MG TAB PO SCH ×2 (10:14→20:08)
[2019-10-08] MEDS: IPRATROPIUM BROMIDE EA NARE SCH ×2 (10:14→20:11)
[2019-10-08] MEDS: Fluticasone Propionate Nasal Spray 16 gm Bottle NASAL SCH (10:14)
[2019-10-08] MEDS: OMEGA ACID ETHYL ESTERS PO SCH ×2 (10:15→20:11)
--- NOTE | 2019-10-08 11:09 | PRG ---
DATE OF SERVICE: 10/08/2019 SUBJECTIVE: The patient says he is doing better. This morning, when he first woke up, he seemed a little bit disoriented, but this quickly passed. He did not have any sleep medicine last night and the nurse said he did not have any pain medicine last night. His was wondering if we could maybe cut back even further on his fentanyl patch. OBJECTIVE: GENERAL: The patient is sitting up in bed. He is alert, talkative, oriented, and appears in no distress. VITAL SIGNS: Show a temperature of 97.2, pulse 69, respirations 16, O2 saturation 100% on room air, blood pressure 104/56. LUNGS: Clear. HEART: Regular rate. EXTREMITIES: Left BK amputation site is healing well. There is a little crusting in the incision. Otis are present. Right foot, the incision is healing well. The foot looks much better. ASSESSMENT: 1. Generalized weakness and deconditioning. a. Status post bilateral transmetatarsal amputation of the feet on 2019. b. Status post prouk-wpf-mwbk amputation of the left leg on 09/26 for continued ischemic changes and necrotic changes and nonhealing of the amputation site from the transmetatarsal amputation on 08/27. c. Improving. Weightbearing on the right leg as tolerated. 2. Status post transmetatarsal guillotine type amputation of the right foot. a. Continues to heal as of 10/08. 3. Status post wxcjb-mkd-ztjq amputation of the left leg on 09/26/2019, following progressive ischemic changes and wound breakdown from the metatarsal amputation on 08/27/2019. a. Healing well as of 10/08. 4. Coronary artery disease. a. Status post coronary artery bypass in 1987. b. Status post stents x4 in 2005. c. Complicated by ischemic cardiomyopathy, that has improved. Ejection fraction improved from 40% to 45% to 50% to 55%. Presently, no evidence of acute CHF. 5. Carotid artery disease, status post bilateral endarterectomies. 6. Hypertension. 7. Hypercholesterolemia. 8. Tobacco abuse. a. Stopped smoking in 1987. b. Has stopped smokeless tobacco during the hospitalization. 9. Status post pacemaker placement. a. Indication for bradycardia and syncope. No recurrence. 10. Insomnia, improved. PLAN: Continue present care. We will reduce the patient's fentanyl patch to 25 mcg/hour. If he does well on this after a few days, we will stop this. Continue PT and OT. Job ID: [id number] MTDD
[2019-10-08] MEDS: Aspirin 325 MG TAB PO SCH (20:07)
[2019-10-08] MEDS: traMADol HCl 50 MG TAB PO PRN (20:07)
[2019-10-08] MEDS: Rosuvastatin 10 MG TAB PO SCH (20:08)
[2019-10-08] MEDS: Loratadine 10 MG TAB PO SCH (20:08)
[2019-10-08] MEDS: Fenofibrate Nanocrystallized 145 MG TAB PO SCH (20:08)
[2019-10-08] MEDS: Polyethylene Glycol 3350 17 GM Packet PO SCH (20:41)
[2019-10-09] MEDS: Ondansetron ODT 4 MG TAB PO PRN ×2 (08:38→14:05)
[2019-10-09] MEDS: Saccharomyces boulardii 250 MG CAP PO SCH (09:22)
[2019-10-09] MEDS: Ubidecarenone 50 MG CAP PO SCH (09:22)
[2019-10-09] MEDS: Doxycycline 100 MG CAP PO SCH ×2 (09:23→20:06)
[2019-10-09] MEDS: Carvedilol 3.125 MG TAB PO SCH ×2 (09:23→20:08)
[2019-10-09] MEDS: IPRATROPIUM BROMIDE EA NARE SCH ×2 (09:24→20:08)
[2019-10-09] MEDS: Fluticasone Propionate Nasal Spray 16 gm Bottle NASAL SCH (09:25)
[2019-10-09] MEDS: OMEGA ACID ETHYL ESTERS PO SCH ×2 (09:25→20:08)
[2019-10-09] MEDS: Lisinopril 10 MG TAB PO SCH (09:26)
--- NOTE | 2019-10-09 10:25 | PRG ---
DATE OF SERVICE: 10/09/2019 SUBJECTIVE: The patient said he had a much better night. He slept good, although he awoke several times, but was able to go back to sleep. He feels better today. His pain has been well controlled. His hydrocodone was stopped since he was only using this infrequent and he has used the tramadol. He said this worked well. He used some last night. He is not taking anything for sleep. His Duragesic was reduced to 25 mcg yesterday and in a few days, we will see if he can do without this. OBJECTIVE: GENERAL: The patient looks better, looks more rested. Appears in no distress. VITAL SIGNS: Temperature 98.2, pulse 73, respirations 16, O2 saturation 97% on room air, and blood pressure 117/56. LUNGS: Clear. HEART: Regular rate. EXTREMITIES: No edema. ASSESSMENT: 1. Generalized weakness and deconditioning. a. Status post bilateral transmetatarsal amputation of the feet on 08/27. b. Status post jhfbr-ymk-dycx amputation of the left leg on 09/26 for progressive ischemic changes with necrosis along the wound edges and nonhealing of the amputation site from the transmetatarsal amputation on 08/27/2019. c. Improved. Weightbearing on the right leg as tolerated. 2. Status post transmetatarsal guillotine type amputation of the right foot. a. Continued to heal as of 10/09. 3. Status post abkrq-zbt-iuvn amputation of the left leg on 09/26/2019, following progressive ischemic changes and necrotic changes on wound edges and wound breakdown from the transmetatarsal amputation on 08/27/2019. a. Healing well. 4. Coronary artery disease. a. Status post coronary artery bypass in 1987. b. Status post stents x4 in 2005. c. Complicated by ischemic cardiomyopathy that has improved. Ejection fraction improved from 40% to 45%, to 50% to 55%. Presently, no evidence of acute congestive heart failure. 5. Carotid artery disease, status post bilateral endarterectomies. 6. Hypertension. 7. Hypercholesterolemia. 8. Tobacco abuse. a. Stopped smoking in 1987. b. Has stopped smokeless tobacco during these hospitalizations. 9. Status post pacemaker placement for bradycardia and syncope. a. No recurrence. 10. Insomnia, improved. PLAN: Continue present care. Continue PT and OT. Job ID: [id number] [facility]
[2019-10-09] MEDS: Rosuvastatin 10 MG TAB PO SCH (20:06)
[2019-10-09] MEDS: Loratadine 10 MG TAB PO SCH (20:06)
[2019-10-09] MEDS: Aspirin 325 MG TAB PO SCH (20:08)
[2019-10-09] MEDS: Polyethylene Glycol 3350 17 GM Packet PO SCH (20:08)
[2019-10-09] MEDS: Fenofibrate Nanocrystallized 145 MG TAB PO SCH (20:08)
[2019-10-09] MEDS: traMADol HCl 50 MG TAB PO PRN (20:14)
[2019-10-10] MEDS: Ondansetron ODT 4 MG TAB PO PRN (07:15)
[2019-10-10] MEDS: OMEGA ACID ETHYL ESTERS PO SCH ×2 (08:44→20:34)
[2019-10-10] MEDS: Ubidecarenone 50 MG CAP PO SCH (08:44)
[2019-10-10] MEDS: Carvedilol 3.125 MG TAB PO SCH ×2 (08:44→20:30)
[2019-10-10] MEDS: Doxycycline 100 MG CAP PO SCH ×2 (08:44→20:31)
[2019-10-10] MEDS: Lisinopril 10 MG TAB PO SCH (08:44)
[2019-10-10] MEDS: Saccharomyces boulardii 250 MG CAP PO SCH (08:44)
[2019-10-10] MEDS: Fluticasone Propionate Nasal Spray 16 gm Bottle NASAL SCH (08:45)
[2019-10-10] MEDS: IPRATROPIUM BROMIDE EA NARE SCH ×2 (08:47→20:32)
--- NOTE | 2019-10-10 12:30 | PRG ---
DATE OF SERVICE: 10/10/2019 SUBJECTIVE: Last evening, the patient was sitting up on the side of his bed usually urinal and he lost his balance and fell into the floor. He did bump his left BK stump, it caused little bleeding and dressing was applied. He sustained two small skin tears on the dorsum of his hands that were dressed. He did not hit his head. There was no loss of consciousness. This morning, he said he is feeling okay. Nurses, whom was on duty, said she thought he slept some, but the patient said he was up and down through the night. He is not having any appreciable pain. His is wondering if at times he still seems with just a little slight confusion and wondered it could be the tramadol. I discussed this and will primarily use the Tylenol for his pain and used the tramadol as a backup only. The temazepam is ordered, but he has not been using this for sleep. His Duragesic patch is being phased out, he is on a 25 mcg. OBJECTIVE: GENERAL: The patient is lying in bed. He looks comfortable in no distress. VITAL SIGNS: Temperature 97.6, pulse 70, respirations 16, O2 saturation 95% on room air, and blood pressure 128/58. LUNGS: Clear. HEART: Regular rate. SKIN: Dorsum of the right hands, there are small skin tears that have overlying dressings. His left BK stump, the midportion of the incision has bleeding from the incision that has stopped. There was a Telfa applied and a dressing and this has left the tissue a little macerated. This dressing will be switched to after cleansing, application of Adaptic overlying 4 x 4 and then a gauze wrap and then application of wheel aligner stockinette. ASSESSMENT: 1. Generalized weakness and deconditioning. a. Status post bilateral transmetatarsal amputation of the feet on 08/27. b. Status post iktbk-lsg-rfkr amputation of the left leg on 09/26 for progressive ischemic changes with necrosis along the wound edges and not healing of the amputation site from the transmetatarsal amputation on 08/27. c. Improved. Weightbearing on the right leg as tolerated. 2. 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 a. Continues to heal as of 10/10. 3. Status post kbrji-tul-pdrm amputation of the left leg on 09/26/2019 following progressive ischemic changes and necrotic changes of the wound edges and wound breakdown from the transmetatarsal amputation on 08/27. a. Fall on the evening of 10/09 resulting in small area of bleeding in the middle portion of the incision of the below-knee stump. Bleeding has been controlled with just overlying dressing. 4. Coronary artery disease. a. Status post coronary artery bypass in 1987. b. Status post stents x4 in 2005. c. Complicated by ischemic cardiomyopathy that has improved with ejection fraction improving from 40 to 45 to 50 to 55. Presently, no evidence of acute congestive heart failure. 5. Carotid artery disease, status post bilateral endarterectomies. 6. Hypertension. 7. Hypercholesterolemia. 8. Status post pacemaker placement for bradycardia and syncope. 9. Tobacco abuse. a. Stop smoking in 1987, presently off the smokeless tobacco. PLAN: The patient fell from a seated position on the bed when trying to urinate and sustained just small skin tears to the hand and caused a little trauma to the left BK stump and little bleeding. This has been controlled. The wound is little macerated from the Telfa. Dressing was changed to Adaptic application after wound cleaning at 4 x 4, then wrapped with a gauze dressing and then apply his wheel aligner stockinette. Continue PT and OT, fall precautions. We utilizes Tylenol as first choice for pain and only the tramadol as a backup. If he does well on this, next thing try stopping the fentanyl. Job ID: [id number] [facility]TDD
[2019-10-10] MEDS: Polyethylene Glycol 3350 17 GM Packet PO SCH (20:30)
[2019-10-10] MEDS: Loratadine 10 MG TAB PO SCH (20:30)
[2019-10-10] MEDS: Aspirin 325 MG TAB PO SCH (20:30)
[2019-10-10] MEDS: Acetaminophen 325 MG TAB PO PRN (20:30)
[2019-10-10] MEDS: Rosuvastatin 10 MG TAB PO SCH (20:30)
[2019-10-10] MEDS: Fenofibrate Nanocrystallized 145 MG TAB PO SCH (20:31)
[2019-10-11] MEDS: Carvedilol 3.125 MG TAB PO SCH ×2 (08:57→20:50)
[2019-10-11] MEDS: Saccharomyces boulardii 250 MG CAP PO SCH (08:57)
[2019-10-11] MEDS: Ubidecarenone 50 MG CAP PO SCH (08:57)
[2019-10-11] MEDS: Lisinopril 10 MG TAB PO SCH (08:57)
[2019-10-11] MEDS: Doxycycline 100 MG CAP PO SCH ×2 (08:57→20:50)
[2019-10-11] MEDS: Fluticasone Propionate Nasal Spray 16 gm Bottle NASAL SCH ×2 (09:00→20:56)
[2019-10-11] MEDS: OMEGA ACID ETHYL ESTERS PO SCH ×2 (09:01→23:51)
[2019-10-11] MEDS: IPRATROPIUM BROMIDE EA NARE SCH ×2 (09:01→21:00)
--- NOTE | 2019-10-11 14:07 | PRG ---
DATE OF SERVICE: 10/11/2019 SUBJECTIVE: The patient said he is doing okay this morning. He has had a restless night, but not any different from usual. His pain is well controlled. OBJECTIVE: GENERAL: The patient is lying in bed. He is alert, appears comfortable, in no distress. VITAL SIGNS: Show a temperature of 96.9, pulse 78, respirations 16, O2 saturation 100% on room air, and blood pressure 132/60. LUNGS: Clear. CHEST: Over the left posterior lower chest wall, there are some bruising. There is no bony nor air crepitation. HEART: Regular rate. EXTREMITIES: Dressings are dry. ASSESSMENT: 1. Generalized weakness and deconditioning. a. Status post bilateral transmetatarsal amputation of the feet on 2019. b. Status post mnxkn-hnl-szto amputation of the left leg on 09/26/2019 for progressive ischemic changes with necrosis along the wound edges and nonhealing of the amputation site from the transmetatarsal amputation on 08/27/2019. c. Improved. Weightbearing as tolerated. 2. 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 a. Continue to heal as of 10/11. 3. Status post toaoz-gkx-knwu amputation of the left leg on 09/26/2019, following progressive ischemic changes, necrotic changes of the wound edges, nonhealing of the wound, and breakdown of the incision from the transmetatarsal amputation on 08/27. a. Fall on the evening of 10/09 resulting in small area of bleeding in the middle portion of the incision of the ugneo-ycc-hscu stump. Stable and no bleeding as of 10/11. 4. Coronary artery disease. a. Status post coronary artery bypass in 1987. b. Status post stents x4 in 2005. c. Complicated by ischemic cardiomyopathy with improvement in the ejection fraction of 40% to 45% to 50% to 55%. Presently, no evidence of acute congestive heart failure as of 10/11. 5. Coronary artery disease. a. Status post bilateral endarterectomy. 6. Hypertension. 7. Hypercholesterolemia. 8. Status post pacemaker placement for bradycardia and syncope. 9. Tobacco abuse. a. Stopped smoking in 1987. Off his smokeless tobacco. 10. Fall on the evening of 10/09. a. Resulted in a little bleeding from zwleq-cch-wigx stump with no recurrence. b. Contusion to the left low back. PLAN: Continue present care. Continue PT and OT. Continue care of the wound sites. We will stop the fentanyl patch. Fall precautions. Job ID: [id number] MTDD
[2019-10-11 14:22] VITALS: BMI 17.2
[2019-10-11] MEDS: Rosuvastatin 10 MG TAB PO SCH (20:50)
[2019-10-11] MEDS: Fenofibrate Nanocrystallized 145 MG TAB PO SCH (20:50)
[2019-10-11] MEDS: Loratadine 10 MG TAB PO SCH (20:50)
[2019-10-11] MEDS: Aspirin 325 MG TAB PO SCH (20:50)
[2019-10-11] MEDS: Acetaminophen 325 MG TAB PO PRN (20:54)
[2019-10-11] MEDS: Polyethylene Glycol 3350 17 GM Packet PO SCH (21:00)
[2019-10-11] MEDS: Temazepam 15 MG CAP PO PRN (23:51)
[2019-10-12 06:15] LABS: #Basophils 0.1 thou/uL (0.0-0.2); #Eosinphils 0.1 thou/uL (0.0-0.7); #Lymphocytes 2.3 thou/uL (1.20-3.40); #Monocytes 0.8 thou/uL (0.11-0.59); #Neutrophils 3.3 thou/uL (1.40-6.50); %Eosinophils 1.6 % (0.0-10.0); %Lymphocytes 35.4 % (21.0-51.0); %Monocytes 12.7 % (0.0-10.0); %Neutrophils 49.3 % (42.0-75.0); Anion Gap 14 mmol/L (10-20); Anisocytosis SLIGHT = 6-15 cells (100X) (0-5/hpf); BUN (Urea Nitrogen) 19 mg/dL (8.4-25.7); Calc. Creatinine Clearance 60 mL/min (70-130); Calcium 9.3 mg/dL (7.8-10.44); Carbon Dioxide 23 mmol/L (23-31); Chloride 98 mmol/L (98-107); Estimated GFR-MDRD 88; Glucose 93 mg/dL (83-110); Hemoglobin 10.9 g/dL (14.0-18.0); Hypochromia SLIGHT = 6-15 cells (100X) (0-5/hpf); MDiff Complete? YES; Mean Corpuscular HGB CONC 30.2 g/dL (32.0-36.0); Mean Corpuscular Hemoglobin 26.3 pg (27.0-31.0); Mean Platelet Volume 6.3 fL (7.4-10.4); Ovalocytes SLIGHT = 2-5 cells (100X) (0-1/hpf); Platelet Count 254 thou/uL (130-400); RBC Distribution Width 18.6 % (11.5-14.5); Red Blood Cell (RBC) Count 4.15 mill/uL (4.70-6.10); Sodium 131 mmol/L (136-145); White Blood Cell (WBC) Count 6.6 thou/uL (4.8-10.8)
[2019-10-12] MEDS: Ondansetron ODT 4 MG TAB PO PRN (08:25)
[2019-10-12] MEDS: Acetaminophen 325 MG TAB PO PRN (08:25)
[2019-10-12] MEDS: Lisinopril 10 MG TAB PO SCH (11:03)
[2019-10-12] MEDS: Carvedilol 3.125 MG TAB PO SCH ×2 (11:04→21:58)
[2019-10-12] MEDS: Saccharomyces boulardii 250 MG CAP PO SCH (11:04)
[2019-10-12] MEDS: Ubidecarenone 50 MG CAP PO SCH (11:04)
[2019-10-12] MEDS: Fluticasone Propionate Nasal Spray 16 gm Bottle NASAL SCH (11:04)
[2019-10-12] MEDS: IPRATROPIUM BROMIDE EA NARE SCH ×2 (11:05→22:00)
[2019-10-12] MEDS: OMEGA ACID ETHYL ESTERS PO SCH ×2 (11:09→21:59)
--- NOTE | 2019-10-12 14:11 | PRG ---
DATE OF SERVICE: 10/12/2019 SUBJECTIVE: The patient said he did not think he rested very well last night. He did use the Restoril and did sleep a few hours last night and this morning. He has been extremely restless, just get sitting up in bed, lying down and turning from one side to another. His said this has been going on continuous. The patient said he is not hurting so much, other than a little achy, but he is just restless. Yesterday, his Duragesic patch was stopped, suspect that this restlessness may be a withdrawal from the narcotic. OBJECTIVE: GENERAL: The patient is lying in his bed, but is continually moving in bed. He is sitting up, he lays down, he turns from side to side, he flexes and extends his legs. VITAL SIGNS: Shows a temperature of 97.3, pulse 84, respirations 18, O2 saturation 100% on room air, and blood pressure 126/61. LUNGS: Clear. HEART: Regular rate. LABORATORY DATA: His lab shows an H and H of 10.9 and 36.1, white cell count 6600 with 49% segs, 35% lymphocytes, and a platelet count of 254,000. Sodium 131, potassium 4, BUN 19, creatinine 0.85, GFR 88, and glucose 93. ASSESSMENT: 1. Generalized weakness and deconditioning. a. Status post bilateral transmetatarsal amputation of the feet on 2019. b. Status post xxfge-mev-xivj amputation of the left leg on 09/26/2019 for progressive ischemic changes with necrosis along the wound edges and nonhealing of the amputation site from the transmetatarsal amputation 08/27. c. Improved. Weightbearing as tolerated on the right leg. 2. 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 a. Continues to heal as of 10/12. 3. Status post qwzdv-qqe-dhpl amputation of the left leg on 09/26/2019, following progressive ischemic changes, necrotic changes of the wound edges, and breakdown of the incision from the metatarsal amputation on 08/27. a. Healing well as of 10/12. 4. Coronary artery disease. a. Status post coronary artery bypass 1987. b. Status post stents x4 in 2005. c. Complicated by ischemic cardiomyopathy with ejection fraction improving from 40% to 45% to 50% to 55%. Presently, no evidence of acute congestive heart failure. 5. Carotid artery disease. a. Status post bilateral endarterectomy. 6. Hypertension. 7. Hypercholesterolemia. 8. Status post pacemaker placement for bradycardia and syncope. 9. Tobacco abuse. a. Stopped smoking 1987. b. Has been off his smokeless tobacco since 08/27/2009. 10. Fall on the evening of 10/09. a. Resulted in a little bleeding from the incision on the left below-the- knee amputation that is doing well as of 10/12. b. Small areas of contusion on the left low back. 11. Restlessness as of 10/12. a. Suspect secondary to withdrawal from the narcotic, fentanyl patch discontinued yesterday. PLAN: We will restart the patient on his fentanyl patch, he was on a 25 mcg/ hour. This will be restarted and then see if this will control the restlessness. If this does, we will leave him on this for a while and then taper him to 12 mcg and then discontinue. Continue PT and OT. Job ID: [id number] MTDD
[2019-10-12] MEDS: Melatonin 3 MG TAB PO PRN (21:58)
[2019-10-12] MEDS: Aspirin 325 MG TAB PO SCH (21:58)
[2019-10-12] MEDS: Rosuvastatin 10 MG TAB PO SCH (21:58)
[2019-10-12] MEDS: Fenofibrate Nanocrystallized 145 MG TAB PO SCH (21:58)
[2019-10-12] MEDS: Loratadine 10 MG TAB PO SCH (21:58)
[2019-10-12] MEDS: Polyethylene Glycol 3350 17 GM Packet PO SCH (22:03)
[2019-10-13] MEDS: Fluticasone Propionate Nasal Spray 16 gm Bottle NASAL SCH (09:34)
[2019-10-13] MEDS: Carvedilol 3.125 MG TAB PO SCH ×2 (09:35→20:41)
[2019-10-13] MEDS: Lisinopril 10 MG TAB PO SCH (09:35)
[2019-10-13] MEDS: Saccharomyces boulardii 250 MG CAP PO SCH (09:36)
[2019-10-13] MEDS: Ubidecarenone 50 MG CAP PO SCH (09:36)
[2019-10-13] MEDS: IPRATROPIUM BROMIDE EA NARE SCH ×2 (09:37→20:50)
[2019-10-13] MEDS: OMEGA ACID ETHYL ESTERS PO SCH ×2 (09:41→20:45)
[2019-10-13] MEDS: Ondansetron ODT 4 MG TAB PO PRN (16:23)
[2019-10-13] MEDS: Fenofibrate Nanocrystallized 145 MG TAB PO SCH (20:41)
[2019-10-13] MEDS: Polyethylene Glycol 3350 17 GM Packet PO SCH (20:41)
[2019-10-13] MEDS: Rosuvastatin 10 MG TAB PO SCH (20:41)
[2019-10-13] MEDS: Aspirin 325 MG TAB PO SCH (20:41)
[2019-10-13] MEDS: Melatonin 3 MG TAB PO PRN (20:41)
[2019-10-13] MEDS: Loratadine 10 MG TAB PO SCH (20:42)
[2019-10-13] MEDS: Acetaminophen 325 MG TAB PO PRN (22:18)
--- NOTE | 2019-10-14 04:48 | PRG ---
DATE OF SERVICE: 10/13/2019 SUBJECTIVE: The patient says he feels a lot better today. Yesterday, after the fentanyl patch was restarted, he said he gradually noticed a settling of all the restlessness. Last night, he said he slept extremely well. He did take melatonin last night. He said he has not had any pain today, feels much better. His wants to take him out and ride him around a little bit just for break in the routine, which has been approved. He is not using any temazepam and is not needing the tramadol. The Tylenol is working fine for his pain, which is minimal. OBJECTIVE: GENERAL: The patient looks much better today. He is talkative. He is well oriented. He is not restless like he was yesterday. VITAL SIGNS: Show a temperature of 97.5, pulse 72, respirations are 16, O2 saturation 98% on room air, blood pressure 94/54, earlier was 134/61. LUNGS: Clear. HEART: Regular rate. EXTREMITIES: Right foot incision healing well. There is a small eschar over the incision. There is no redness or drainage. Left BK stump has shashank, healing. Stump is doing well. ASSESSMENT: 1. Generalized weakness and deconditioning. a. Status post bilateral transmetatarsal amputation of the feet on 2019. b. Status post oiohk-emi-gqba amputation of the left leg on 09/26/2019 for progressive ischemic changes of the foot with necrosis along the wound edges and nonhealing of the amputation site from the transmetatarsal amputation on 08/27. c. Continued improvement. Weightbearing as tolerated on the right leg. 2. 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 a. Excellent healing as of . 3. Status post xjkvk-jus-jhwt amputation of the left leg on 09/26/2019, following progressive ischemic changes with necrotic changes of the wound edges and breakdown of the incision from the metatarsal amputation on 08/27. a. Healing well as of . 4. Coronary artery disease. a. Status post coronary artery bypass 1987. b. Status post stents in 2005. c. Complicated by ischemic cardiomyopathy with an improvement in the ejection fraction from 40% to 45% to 50% to 55%. Presently, no evidence of acute congestive heart failure as of . 5. Carotid artery disease. a. Status post bilateral endarterectomy. 6. Hypertension. 7. Hypercholesterolemia. 8. Status post pacemaker placement for bradycardia and syncope. 9. Tobacco abuse. a. Stopped smoking in 1987. b. Stopped smokeless tobacco since 08/27. 10. Fall on the evening of 09/26. a. Resulting in small bleeding from the incision of the left ffizv-mjr-psri amputation that is doing well as of . b. Small area contusion on the left low back, resolving. 11. Restlessness on 10/12. a. Secondary to withdrawal of the fentanyl patch. b. Symptoms all resolved after fentanyl patch restarted on 10/12 as of the exam on . PLAN: The patient is doing well. He has had minimal pain that is handled with Tylenol. We will stop the tramadol, which he has not been using and his is worried that this may cause a little confusion. He is not using the Restoril and his is also worried that that might also contribute to a little change in his mentation. He is using a melatonin that seemed to work last night. Restarted the fentanyl patch, within a couple of hours of starting this, all the restlessness went down and he relaxed. We will leave this at the 25 mcg/hour for a few days and then cut him back to a 12 mcg/hour for a few days and then discontinue. The patient may go on a pass today. Continue PT and OT. Job ID: [id number] [facility]
[2019-10-14] MEDS: Lisinopril 10 MG TAB PO SCH (09:10)
[2019-10-14] MEDS: Carvedilol 3.125 MG TAB PO SCH ×2 (09:10→21:16)
[2019-10-14] MEDS: Ubidecarenone 50 MG CAP PO SCH (09:10)
[2019-10-14] MEDS: Saccharomyces boulardii 250 MG CAP PO SCH (09:10)
[2019-10-14] MEDS: Fluticasone Propionate Nasal Spray 16 gm Bottle NASAL SCH (09:11)
[2019-10-14] MEDS: OMEGA ACID ETHYL ESTERS PO SCH ×2 (09:13→21:18)
[2019-10-14] MEDS: IPRATROPIUM BROMIDE EA NARE SCH ×2 (09:18→21:18)
[2019-10-14] MEDS: Aspirin 325 MG TAB PO SCH (21:16)
[2019-10-14] MEDS: Loratadine 10 MG TAB PO SCH (21:17)
[2019-10-14] MEDS: Fenofibrate Nanocrystallized 145 MG TAB PO SCH (21:17)
[2019-10-14] MEDS: Rosuvastatin 10 MG TAB PO SCH (21:18)
[2019-10-14] MEDS: Polyethylene Glycol 3350 17 GM Packet PO SCH (21:18)
[2019-10-14] MEDS: Melatonin 3 MG TAB PO PRN (21:19)
[2019-10-14] MEDS: Acetaminophen 325 MG TAB PO PRN (21:19)
[2019-10-15] MEDS: Acetaminophen 325 MG TAB PO PRN ×2 (00:37→20:43)
--- NOTE | 2019-10-15 10:02 | PRG ---
DATE OF SERVICE: 10/15/2019 SUBJECTIVE: The patient said he is doing okay from a pain standpoint, but he said he just did not sleep any. OBJECTIVE: GENERAL: The patient is alert, appears in no acute distress. VITAL SIGNS: Temp 97.8, pulse 88, respirations 18, O2 saturation 95% on room air, blood pressure 160/63. LUNGS: Clear. HEART: Regular rate. Wounds slowly healing on right foot and left BK stump. ASSESSMENT: 1. Generalized weakness and deconditioning. a. Status post bilateral transmetatarsal amputation of the feet on 08/27. b. Status post mzunb-voc-xexk amputation of the left leg on 09/26 for progressive ischemic changes of the foot with necrosis along the skin edges and breakdown of the incision from the amputation site from the transmetatarsal amputation on 08/27. c. Continued improvement. Weightbearing as tolerated on the right leg. 2. 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 a. Excellent healing as of 10/14. 3. Status post bvtyw-szb-xwyj amputation of the left leg on 09/26/2019 following progressive ischemic changes with necrotic changes of the wound edges and breakdown of the incision from the transmetatarsal amputation on 08/27. a. Healing well as of 10/14. 4. Coronary artery disease. a. Status post coronary artery bypass in 1987. b. Status post stents in 2005. c. Complicated by ischemic cardiomyopathy with an improvement in ejection fraction from 40% to 45% to 50% to 55%. Presently, no evidence of acute congestive failure. 5. Carotid artery disease. a. Status post bilateral endarterectomy. 6. Hypertension. 7. Hypercholesterolemia. 8. Status post pacemaker placement for bradycardia and syncope. 9. Tobacco abuse. a. Stopped smoking in 1987. b. Stopped smokeless tobacco 08/27/2019. 10. Restlessness on 10/12. a. Secondary to withdrawal of the fentanyl patch. These symptoms resolved after a fentanyl patch restarted on 10/12. 11. Insomnia. PLAN: Continue present care. We will gradually phase out the fentanyl patch. We will try the patient on mirtazapine to see if this will help his sleep and also help with any developing depression from this prolonged hospitalization. Job ID: [id number] [facility]
[2019-10-15] MEDS: Lisinopril 10 MG TAB PO SCH (10:48)
[2019-10-15] MEDS: Saccharomyces boulardii 250 MG CAP PO SCH (10:48)
[2019-10-15] MEDS: Carvedilol 3.125 MG TAB PO SCH ×2 (10:48→20:38)
[2019-10-15] MEDS: Ubidecarenone 50 MG CAP PO SCH (10:49)
[2019-10-15] MEDS: OMEGA ACID ETHYL ESTERS PO SCH ×2 (11:05→20:43)
[2019-10-15] MEDS: Fluticasone Propionate Nasal Spray 16 gm Bottle NASAL SCH (11:05)
[2019-10-15] MEDS: IPRATROPIUM BROMIDE EA NARE SCH ×2 (11:05→20:45)
[2019-10-15] MEDS: Polyethylene Glycol 3350 17 GM Packet PO SCH (20:37)
[2019-10-15] MEDS: Mirtazapine 15 MG TAB PO SCH (20:38)
[2019-10-15] MEDS: Aspirin 325 MG TAB PO SCH (20:39)
[2019-10-15] MEDS: Fenofibrate Nanocrystallized 145 MG TAB PO SCH (20:39)
[2019-10-15] MEDS: Rosuvastatin 10 MG TAB PO SCH (20:39)
[2019-10-15] MEDS: Loratadine 10 MG TAB PO SCH (20:40)
[2019-10-16] MEDS: Ubidecarenone 50 MG CAP PO SCH (08:36)
[2019-10-16] MEDS: Saccharomyces boulardii 250 MG CAP PO SCH (08:37)
[2019-10-16] MEDS: Carvedilol 3.125 MG TAB PO SCH ×2 (08:37→21:31)
[2019-10-16] MEDS: Fluticasone Propionate Nasal Spray 16 gm Bottle NASAL SCH (08:37)
[2019-10-16] MEDS: Lisinopril 10 MG TAB PO SCH (08:37)
[2019-10-16] MEDS: IPRATROPIUM BROMIDE EA NARE SCH ×2 (08:38→21:26)
[2019-10-16] MEDS: OMEGA ACID ETHYL ESTERS PO SCH ×2 (08:38→21:26)
--- NOTE | 2019-10-16 09:33 | PRG ---
DATE OF SERVICE: 10/16/2019 SUBJECTIVE: The patient says he feels better today. He had a good night's sleep. The patient said he worked good with physical therapy yesterday. OBJECTIVE: GENERAL: The patient is alert, talkative, looks rested, and in no distress. VITAL SIGNS: Show a temperature 97.9, pulse 81, respirations 18, O2 saturation 99% on room air, blood pressure 119/55. LUNGS: Clear. HEART: Regular rate. EXTREMITIES: Right foot incision healing well. Left BK stump is healing well. There are a couple of spots where there has been some recent bleeding from the incision from where he has bumped this, but this is dry and the incision is healing well. Daisy are still present. ASSESSMENT: 1. General weakness and deconditioning. a. Status post bilateral transmetatarsal amputation of the feet on 2019. b. Status post uriiz-qfl-fshp amputation of the left leg on 09/26/2019 for progressive ischemic changes of the foot with necrosis along the skin edges and breakdown of the incision from the transmetatarsal amputation on 2019. c. Continued improvement. Weightbearing as tolerated on the right leg. 2. 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 a. Excellent healing as of 10/15. 3. Status post bkfdd-duz-atbq amputation of the left leg on 09/26/2019 following progressive ischemic changes with necrotic changes of the wound edges and breakdown of the incision from the transmetatarsal amputation on 08/27/2019. a. Healing well as of 10/15. 4. Coronary artery disease. a. Status post bypass in 1987. b. Status post stents in 2005. c. Complicated by ischemic cardiomyopathy with an improvement in the ejection fraction from 40% to 45% to 50% to 55%. Presently, no evidence of acute congestive heart failure. 5. Carotid artery disease, status post bilateral endarterectomy. 6. Hypertension. 7. Hypercholesterolemia. 8. Status post pacemaker placement for bradycardia and syncope. 9. Tobacco abuse. a. Stopped smoking in 1987. b. Stopped smokeless tobacco on 08/27/2019. 10. Restlessness. a. From withdrawal of the fentanyl patch, that resolved after fentanyl patch restarted on 10/12. 11. Insomnia. a. Improved after starting mirtazapine as of 10/15. PLAN: Continue present care. Continue present medications. Continue PT and OT. Job ID: [id number] MTDD
[2019-10-16] MEDS: Polyethylene Glycol 3350 17 GM Packet PO SCH (21:25)
[2019-10-16] MEDS: Loratadine 10 MG TAB PO SCH (21:28)
[2019-10-16] MEDS: Mirtazapine 15 MG TAB PO SCH (21:28)
[2019-10-16] MEDS: Rosuvastatin 10 MG TAB PO SCH (21:30)
[2019-10-16] MEDS: Fenofibrate Nanocrystallized 145 MG TAB PO SCH (21:30)
[2019-10-16] MEDS: Aspirin 325 MG TAB PO SCH (21:31)
[2019-10-16] MEDS: Acetaminophen 325 MG TAB PO PRN (21:32)
[2019-10-17] MEDS: Carvedilol 3.125 MG TAB PO SCH ×2 (08:27→20:57)
[2019-10-17] MEDS: Saccharomyces boulardii 250 MG CAP PO SCH (08:27)
[2019-10-17] MEDS: Ubidecarenone 50 MG CAP PO SCH (08:27)
[2019-10-17] MEDS: Lisinopril 10 MG TAB PO SCH (08:27)
[2019-10-17] MEDS: IPRATROPIUM BROMIDE EA NARE SCH ×2 (08:28→20:59)
[2019-10-17] MEDS: Fluticasone Propionate Nasal Spray 16 gm Bottle NASAL SCH (08:28)
[2019-10-17] MEDS: OMEGA ACID ETHYL ESTERS PO SCH ×2 (08:29→21:00)
--- NOTE | 2019-10-17 09:39 | PRG ---
DATE OF SERVICE: 10/17/2019 SUBJECTIVE: The patient had another good night. He slept, he thought pretty good. He is not having any pain. His appetite is better. He is eating a breakfast taco this morning. OBJECTIVE: GENERAL: The patient is sitting up on the edge of bed, alert, talkative, looks rested, in no distress. VITAL SIGNS: His temperature is 97, pulse 82, respirations 18, O2 saturation 99 % on room air, and blood pressure 112/59. LUNGS: Clear. HEART: Regular rate. EXTREMITIES: No edema. ASSESSMENT: 1. Generalized weakness and deconditioning. a. Status post bilateral transmetatarsal amputation of the feet on 2019. b. Status post duyic-pkj-nqkg amputation of the left leg on 09/26/2019 for progressive ischemic changes of the foot with necrosis along the skin edges of the incision and breakdown of the incision from the metatarsal amputation on 08/27/2019. c. Continued improvement. Weightbearing as tolerated on the right foot. 2. 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 a. Continued healing as of 10/16. 3. Status post skhvo-aft-aikp amputation of the left leg on 09/26/2019, following progressive ischemic changes with necrotic changes of the wound edges and breakdown of the incision from the transmetatarsal amputation on 08/27. a. Healing well as of 10/16. 4. Coronary artery disease. a. Status post bypass in 1987. b. Status post stents in 2005. c. Complicated by ischemic cardiomyopathy with improvement in ejection fraction from 40% to 45% to 50% to 55%. Presently, no evidence of acute congestive heart failure as of 10/17/2019. 5. Carotid artery disease, status post bilateral endarterectomy. 6. Hypertension. 7. Hypercholesterolemia. 8. Status post pacemaker for bradycardia and syncope. 9. Tobacco abuse. a. Stopped smoking in 1987. b. Stopped smokeless Tobacco on 08/27/2019. 10. Restlessness. a. Secondary to withdrawal from the fentanyl patch that was restarted on . b. Resolved. 11. Insomnia, improved since mirtazapine started on 10/15. PLAN: 1. Continue PT/OT. Continue care of the wounds. 2. The patient is free of any pain and has had no restlessness, we will taper his fentanyl patch to 12 mcg/hour. Job ID: [id number] [facility]TDD
[2019-10-17] MEDS: Fenofibrate Nanocrystallized 145 MG TAB PO SCH (20:56)
[2019-10-17] MEDS: Rosuvastatin 10 MG TAB PO SCH (20:56)
[2019-10-17] MEDS: Aspirin 325 MG TAB PO SCH (20:56)
[2019-10-17] MEDS: Melatonin 3 MG TAB PO PRN (20:57)
[2019-10-17] MEDS: Mirtazapine 15 MG TAB PO SCH (20:57)
[2019-10-17] MEDS: Polyethylene Glycol 3350 17 GM Packet PO SCH (20:57)
[2019-10-17] MEDS: Loratadine 10 MG TAB PO SCH (20:57)
[2019-10-17] MEDS: Acetaminophen 325 MG TAB PO PRN (21:13)
[2019-10-18] MEDS: Saccharomyces boulardii 250 MG CAP PO SCH (08:35)
[2019-10-18] MEDS: Carvedilol 3.125 MG TAB PO SCH ×2 (08:35→20:25)
[2019-10-18] MEDS: Lisinopril 10 MG TAB PO SCH (08:35)
[2019-10-18] MEDS: Fluticasone Propionate Nasal Spray 16 gm Bottle NASAL SCH (08:36)
[2019-10-18] MEDS: OMEGA ACID ETHYL ESTERS PO SCH ×2 (08:36→20:25)
[2019-10-18] MEDS: IPRATROPIUM BROMIDE EA NARE SCH ×2 (08:36→20:25)
[2019-10-18] MEDS: Ubidecarenone 50 MG CAP PO SCH (08:38)
--- NOTE | 2019-10-18 11:40 | PRG ---
DATE OF SERVICE: 10/18/2019 SUBJECTIVE: The patient said he had another good night's sleep. He is feeling better today. Yesterday, he was able to ambulate with a walker and by hopping up to 40 feet. OBJECTIVE: GENERAL: The patient is alert, looks very comfortable. VITAL SIGNS: Show temperature 97, pulse 70, respirations 16, O2 saturation 100% , and blood pressure 131/58. LUNGS: Clear. HEART: Regular rate. EXTREMITIES: Right foot, the incisions over the mid foot were all healing. The left BK-amputation incision continues to heal, just a slight amount of serous drainage from the incision. ASSESSMENT: 1. Generalized weakness and deconditioning. a. Status post bilateral transmetatarsal amputation of the feet on 2019. b. Status post iiteh-lqf-xebz amputation of the left leg on 09/26. 2. 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 a. Healing well. 3. Status post bowye-shj-rnhz amputation of the left leg on 09/26/2019, following progressive ischemic changes with necrotic changes of the wound edges and breakdown of the incision from the transmetatarsal amputation on 08/27/2019. a. Healing well as of 10/17. 4. Coronary artery disease. a. Status post bypass in 1987. b. Status post stents in 2005. c. Complicated by ischemic cardiomyopathy with improved ejection fraction from 40% to 45% to 50% to 55%. Presently, no evidence of acute congestive heart failure as of 10/17. 5. Carotid artery disease, status post bilateral endarterectomy. 6. Hypertension. 7. Hypercholesterolemia. 8. Status post pacemaker for bradycardia and syncope. a. No recurrence of syncope. 9. Tobacco abuse. a. Stopped smoking in 1987. b. Stopped smokeless tobacco on 08/27/2019. 10. Restlessness. a. Secondary to withdrawal from fentanyl patch that was restarted on 10/12. b. The restlessness has resolved and he has been tapered to a fentanyl patch 12 mcg/h on 10/16, and doing very well with no pain as of 10/18/2019. 11. Insomnia. a. Continue to sleep well since he was started on the mirtazapine on 10/15. PLAN: Continue present care. Continue PT. Job ID: [id number] [facility]
[2019-10-18] MEDS: Fenofibrate Nanocrystallized 145 MG TAB PO SCH (20:24)
[2019-10-18] MEDS: Rosuvastatin 10 MG TAB PO SCH (20:24)
[2019-10-18] MEDS: Acetaminophen 325 MG TAB PO PRN (20:24)
[2019-10-18] MEDS: Aspirin 325 MG TAB PO SCH (20:24)
[2019-10-18] MEDS: Melatonin 3 MG TAB PO PRN (20:25)
[2019-10-18] MEDS: Polyethylene Glycol 3350 17 GM Packet PO SCH (20:25)
[2019-10-18] MEDS: Mirtazapine 15 MG TAB PO SCH (20:25)
[2019-10-18] MEDS: Loratadine 10 MG TAB PO SCH (20:25)
[2019-10-19] MEDS: Fluticasone Propionate Nasal Spray 16 gm Bottle NASAL SCH (10:28)
[2019-10-19] MEDS: Saccharomyces boulardii 250 MG CAP PO SCH (10:29)
[2019-10-19] MEDS: Ubidecarenone 50 MG CAP PO SCH (10:29)
[2019-10-19] MEDS: IPRATROPIUM BROMIDE EA NARE SCH ×2 (10:30→21:03)
[2019-10-19] MEDS: Carvedilol 3.125 MG TAB PO SCH ×2 (10:30→20:56)
[2019-10-19] MEDS: Lisinopril 10 MG TAB PO SCH (10:30)
[2019-10-19] MEDS: OMEGA ACID ETHYL ESTERS PO SCH ×2 (10:30→21:03)
--- NOTE | 2019-10-19 12:28 | PRG ---
DATE OF SERVICE: 10/19/2019 SUBJECTIVE: The patient said he is feeling good today. He had another good night. He slept well. He said he is not having any pain. Physical therapist said that he is doing better. His strength is improving. Still has trouble with his balance. He is able to walk with the aid of a walker and by hopping up to 20 feet. OBJECTIVE: GENERAL: The patient looks alert, looks very comfortable, and in no distress. VITAL SIGNS: His temp is 96.9, pulse 77, blood pressure 123/57, respirations 18 , O2 saturation 100% on room air. LUNGS: Clear. HEART: Regular rate. EXTREMITIES: Have no edema. The incisions continue to heal. ASSESSMENT: 1. Generalized weakness and deconditioning. a. Status post bilateral transmetatarsal amputation of the feet on 2019. b. Status post qbxpv-pqq-eiht amputation of the left leg on 09/26. 2. 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 a. Healing well. 3. Status post yegwl-yus-nzes amputation of the left leg on 09/26/2019 following progressive ischemic changes with necrotic changes on the wound edges and breakdown of the incision from the transmetatarsal amputation on 08/27/2019. a. Healing well as of 10/18. 4. Coronary artery disease. a. Status post coronary artery bypass in 1987. b. Status post stent in 2005. c. Complicated by ischemic cardiomyopathy with improved ejection fraction from 40% to 45% to 50% to 55%. Presently, no evidence of acute congestive heart failure as of 10/18. 5. Carotid artery disease, status post bilateral endarterectomy. 6. Hypertension. 7. Hypercholesterolemia. 8. Status post pacemaker for bradycardia and syncope. a. No recurrence of syncope. 9. Tobacco abuse. a. Stopped smoking in 1987. b. Stopped smokeless tobacco on 08/27/2019. 10. Restlessness. a. Secondary to withdrawal from fentanyl patch that was restarted on 10/12. b. Restlessness has resolved. He has been tapered to a 12 mcg/hour on . Doing very well with no pain or restlessness as of 10/18. 11. Insomnia. a. Controlled since mirtazapine started on 10/15. PLAN: Continue present care. Continue PT and OT. Next week, he will be seeing his cardiovascular surgeon to check on the right foot and the BK amputation of the left leg. Job ID: [id number] MTDD
[2019-10-19] MEDS: Loratadine 10 MG TAB PO SCH (20:56)
[2019-10-19] MEDS: Mirtazapine 15 MG TAB PO SCH (20:56)
[2019-10-19] MEDS: Aspirin 325 MG TAB PO SCH (20:56)
[2019-10-19] MEDS: Fenofibrate Nanocrystallized 145 MG TAB PO SCH (20:56)
[2019-10-19] MEDS: Polyethylene Glycol 3350 17 GM Packet PO SCH (20:57)
[2019-10-19] MEDS: Melatonin 3 MG TAB PO PRN (20:57)
[2019-10-19] MEDS: Rosuvastatin 10 MG TAB PO SCH (20:57)
[2019-10-19] MEDS: Acetaminophen 325 MG TAB PO PRN (20:57)
[2019-10-20] MEDS: Acetaminophen 325 MG TAB PO PRN ×2 (00:28→19:51)
[2019-10-20] MEDS: Saccharomyces boulardii 250 MG CAP PO SCH (09:03)
[2019-10-20] MEDS: Ubidecarenone 50 MG CAP PO SCH (09:03)
[2019-10-20] MEDS: Lisinopril 10 MG TAB PO SCH (09:03)
[2019-10-20] MEDS: IPRATROPIUM BROMIDE EA NARE SCH ×2 (09:04→20:28)
[2019-10-20] MEDS: Fluticasone Propionate Nasal Spray 16 gm Bottle NASAL SCH (09:04)
[2019-10-20] MEDS: Carvedilol 3.125 MG TAB PO SCH ×2 (09:04→20:27)
[2019-10-20] MEDS: OMEGA ACID ETHYL ESTERS PO SCH ×2 (09:04→20:28)
--- NOTE | 2019-10-20 17:58 | PRG ---
DATE OF SERVICE: 10/20/2019 SUBJECTIVE: The patient said he is doing good. He is going to go out on pass today just to ride around to get a break from the hospital. He did not rest as well last night. OBJECTIVE: GENERAL: The patient is alert, appears very comfortable, in no distress. VITAL SIGNS: Show a temperature 97.5, pulse 68, respirations 16, O2 saturation 97% on room air, and blood pressure 165/75. LUNGS: Clear. HEART: Regular rate. EXTREMITIES: Right foot, the incision over the mid foot is continuing to heal just small areas with a little scabbing present. Skin is in good shape. The BK stump incision is healing. [place] are still present. Skin is just little pink. ASSESSMENT: 1. Generalized weakness and deconditioning. a. Status post bilateral transmetatarsal amputation of the feet on 2019. b. Status post BK amputation of the left leg on 09/26. c. Improving, ambulating up to 40 feet with his walker with hopping transferring better as of 10/19. 2. 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 a. Healing well. 3. Status post apbtb-bln-zofe amputation of the left leg on 09/26/2019, following progressive ischemic changes with necrotic changes on the wound edges and breakdown of the incision from the transmetatarsal amputation, 08/27/2019. a. Healing well as of 10/19. 4. Coronary artery disease. a. Status post CAB in 1987. b. Status post stents 2005. c. Complicated by ischemic cardiomyopathy with improved ejection fraction from 40% to 45% to 50% to 55%. Presently, no evidence of acute congestive heart failure as of 10/19. 5. Carotid artery disease status post bilateral endarterectomy. 6. Hypertension. 7. Hypercholesterolemia. 8. Status post pacemaker placement for bradycardia and syncope. a. No recurrence of the syncope. 9. Tobacco abuse. a. Stopped smoking 1987. b. Stopped smokeless tobacco 08/27/2019. 10. Restlessness. a. Secondary to withdrawal from the fentanyl patch that was restarted on . b. Restlessness has resolved. He is doing well with fentanyl patch taper to 12 mcg an hour. This was reduced on 10/16 and doing well as of 10/19. 11. Insomnia. a. Marked improvement, but since started the mirtazapine, last night did not rest as well as of 10/19. PLAN: Overall, the patient continues to make progress. We will continue present care. Continue PT and OT in a few days. We will try stopping the fentanyl patch. Job ID: [id number] MTDD
[2019-10-20] MEDS: Mirtazapine 15 MG TAB PO SCH (20:27)
[2019-10-20] MEDS: Loratadine 10 MG TAB PO SCH (20:27)
[2019-10-20] MEDS: Rosuvastatin 10 MG TAB PO SCH (20:27)
[2019-10-20] MEDS: Aspirin 325 MG TAB PO SCH (20:27)
[2019-10-20] MEDS: Fenofibrate Nanocrystallized 145 MG TAB PO SCH (20:27)
[2019-10-20] MEDS: Melatonin 3 MG TAB PO PRN (20:28)
[2019-10-20] MEDS: Polyethylene Glycol 3350 17 GM Packet PO SCH (20:28)
[2019-10-21] MEDS: Fluticasone Propionate Nasal Spray 16 gm Bottle NASAL SCH (08:53)
[2019-10-21] MEDS: Ubidecarenone 50 MG CAP PO SCH (08:54)
[2019-10-21] MEDS: Saccharomyces boulardii 250 MG CAP PO SCH (08:54)
[2019-10-21] MEDS: Carvedilol 3.125 MG TAB PO SCH ×2 (08:54→20:25)
[2019-10-21] MEDS: OMEGA ACID ETHYL ESTERS PO SCH ×2 (08:55→20:26)
[2019-10-21] MEDS: IPRATROPIUM BROMIDE EA NARE SCH ×2 (08:55→20:25)
[2019-10-21] MEDS: Lisinopril 10 MG TAB PO SCH (08:57)
[2019-10-21] MEDS: Ondansetron ODT 4 MG TAB PO PRN (12:20)
[2019-10-21] MEDS: Acetaminophen 325 MG TAB PO PRN (19:45)
[2019-10-21] MEDS: Fenofibrate Nanocrystallized 145 MG TAB PO SCH (20:25)
[2019-10-21] MEDS: Mirtazapine 15 MG TAB PO SCH (20:25)
[2019-10-21] MEDS: Loratadine 10 MG TAB PO SCH (20:25)
[2019-10-21] MEDS: Aspirin 325 MG TAB PO SCH (20:25)
[2019-10-21] MEDS: Polyethylene Glycol 3350 17 GM Packet PO SCH (20:26)
[2019-10-21] MEDS: Rosuvastatin 10 MG TAB PO SCH (20:26)
[2019-10-21] MEDS: Melatonin 3 MG TAB PO PRN (20:27)
[2019-10-22] MEDS: Saccharomyces boulardii 250 MG CAP PO SCH (10:57)
[2019-10-22] MEDS: Fluticasone Propionate Nasal Spray 16 gm Bottle NASAL SCH (10:57)
[2019-10-22] MEDS: Lisinopril 10 MG TAB PO SCH (10:58)
[2019-10-22] MEDS: IPRATROPIUM BROMIDE EA NARE SCH ×2 (10:58→20:19)
[2019-10-22] MEDS: Ubidecarenone 50 MG CAP PO SCH (10:58)
[2019-10-22] MEDS: Carvedilol 3.125 MG TAB PO SCH ×2 (10:58→20:19)
[2019-10-22] MEDS: OMEGA ACID ETHYL ESTERS PO SCH ×2 (10:58→20:19)
--- NOTE | 2019-10-22 12:15 | PRG ---
DATE OF SERVICE: 10/22/2019 SUBJECTIVE: The patient said he had a good night's sleep. He thinks he is doing very well. He had no complaint. He is due to see his cardiovascular surgeon, who did the amputations. This is scheduled for Tuesday, 10/23. I think if this week goes well, then may be by the end of the week, he will be able to manage with his at home. OBJECTIVE: GENERAL: The patient is alert, talkative, appears very comfortable , in no distress, in no pain. VITAL SIGNS: Temperature 97, pulse 82, respirations 18, O2 saturation 100% on room air, and blood pressure 157/72. LUNGS: Clear. HEART: Regular rate. EXTREMITIES: Right foot, healing well. The incision on the BK amputation doing well. ASSESSMENT: 1. Generalized weakness and deconditioning. a. Status post bilateral transmetatarsal amputation of the feet on 08/27. b. Status post zmnmb-yqh-gaff amputation of the left leg on 09/26. c. Improving. Ambulating a little further by hopping with the use of his walker as of 10/21. 2. 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 a. Healing well. 3. Status post idtkv-jzu-zuli amputation of the left leg on 09/26/2019, following progressive ischemic changes with necrotic changes of the wound edges and breakdown of the incision from the transmetatarsal amputation, 08/27/2019. a. Healing well as of 10/21. 4. Coronary artery disease. a. Status post CAB in 1987. b. Status post stents in 2005. c. Complicated by ischemic cardiomyopathy with improved ejection fraction from 40% to 45% to 50% to 55%. Presently, no evidence of acute congestive heart failure. 5. Carotid artery disease, status post bilateral endarterectomy. 6. Hypertension. 7. Hypercholesterolemia. 8. Status post pacemaker placement for bradycardia and syncope. a. No recurrence of the syncope. 9. Tobacco abuse. a. Stopped smoking in 1987. b. Stopped smokeless tobacco, 08/27/2019. 10. Restlessness. a. Resolved. 11. Insomnia. a. Controlled. PLAN: Continue PT/OT. We will discontinue the fentanyl patch. He has been gradually tapered to 12 mcg and doing very well. He is due to see his surgeon on Tuesday, 10/23. If things continue to go well, consider discharge at the end of the week. Job ID: [id number] MTDD
[2019-10-22] MEDS ORDERED: Sodium Chloride Irrig Solution 250 ML BOT ONE (12:50)
[2019-10-22] MEDS: Polyethylene Glycol 3350 17 GM Packet PO SCH (20:17)
[2019-10-22] MEDS: Fenofibrate Nanocrystallized 145 MG TAB PO SCH (20:18)
[2019-10-22] MEDS: Rosuvastatin 10 MG TAB PO SCH (20:18)
[2019-10-22] MEDS: Acetaminophen 325 MG TAB PO PRN ×2 (20:18→23:51)
[2019-10-22] MEDS: Loratadine 10 MG TAB PO SCH (20:19)
[2019-10-22] MEDS: Melatonin 3 MG TAB PO PRN (20:19)
[2019-10-22] MEDS: Mirtazapine 15 MG TAB PO SCH (20:19)
[2019-10-22] MEDS: Aspirin 325 MG TAB PO SCH (20:19)
[2019-10-23] MEDS: Fluticasone Propionate Nasal Spray 16 gm Bottle NASAL SCH (08:43)
[2019-10-23] MEDS: Ubidecarenone 50 MG CAP PO SCH (08:45)
[2019-10-23] MEDS: Lisinopril 10 MG TAB PO SCH (08:46)
[2019-10-23] MEDS: Saccharomyces boulardii 250 MG CAP PO SCH (08:46)
[2019-10-23] MEDS: OMEGA ACID ETHYL ESTERS PO SCH ×2 (08:46→20:02)
[2019-10-23] MEDS: Carvedilol 3.125 MG TAB PO SCH ×2 (08:46→20:01)
[2019-10-23] MEDS: IPRATROPIUM BROMIDE EA NARE SCH ×2 (08:47→20:02)
--- NOTE | 2019-10-23 09:42 | PRG ---
DATE OF SERVICE: 10/23/2019 SUBJECTIVE: The patient said he had a very good night, slept good. Yesterday, his fentanyl patch 12 mcg/h was stopped. He said he did not notice any change. He had no pain. He did not have the restlessness that he had when the previous higher dose fentanyl was stopped. The patient is due to see his surgeon, Dr. Kendall, today. OBJECTIVE: GENERAL: The patient is alert, talkative, appears very comfortable , in no distress. VITAL SIGNS: Temperature 97.8, pulse 81, respirations 16, O2 saturation 96% on room air, and blood pressure 166/77. LUNGS: Clear. HEART: Regular rate. EXTREMITIES: No edema. ASSESSMENT: 1. Generalized weakness and deconditioning. a. Status post bilateral transmetatarsal amputation of the feet on 08/27. b. Status post ujhnw-ixb-moro amputation of the left leg on 09/26. c. Improving. Ambulating a little further by hopping with the use of a walker as of 10/22. 2. 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 a. Healing well. 3. Status post fsxtv-ods-zhjn amputation of the left leg on 09/26/2019, following progressive ischemic changes with necrotic changes of the wound edges and breakdown of the incision from the transmetatarsal amputation on 08/27/2019. a. Healing well as of 10/22. 4. Coronary artery disease. a. Status post CAB in 1987. b. Status post stents in 2005. c. Complicated by ischemic cardiomyopathy with improved ejection fraction from 40% to 45% to 50% to 55%. Presently, no evidence of acute congestive heart failure. 5. Carotid artery disease, status post bilateral endarterectomy. 6. Hypertension. 7. Hypercholesterolemia. 8. Status post pacemaker placement for bradycardia and syncope, no recurrence. 9. Tobacco abuse. a. Stopped smoking in 1987. Stopped smokeless tobacco on 08/27/2019. 10. Restlessness, resolved. 11. Insomnia, controlled. PLAN: The patient is doing very well off the fentanyl patches. His pain is minimal and controlled. Continue PT, OT. The patient due to see Dr. Kendall, his surgeon , today. If everything goes well, anticipate discharge in a few days. Job ID: [id number] [facility]
[2019-10-23] MEDS: Melatonin 3 MG TAB PO PRN (19:58)
[2019-10-23] MEDS: Acetaminophen 325 MG TAB PO PRN ×2 (19:58→23:56)
[2019-10-23] MEDS: Polyethylene Glycol 3350 17 GM Packet PO SCH (19:59)
[2019-10-23] MEDS: Loratadine 10 MG TAB PO SCH (20:01)
[2019-10-23] MEDS: Fenofibrate Nanocrystallized 145 MG TAB PO SCH (20:01)
[2019-10-23] MEDS: Mirtazapine 15 MG TAB PO SCH (20:01)
[2019-10-23] MEDS: Aspirin 325 MG TAB PO SCH (20:01)
[2019-10-23] MEDS: Rosuvastatin 10 MG TAB PO SCH (20:05)
[2019-10-24] MEDS: Saccharomyces boulardii 250 MG CAP PO SCH (09:24)
[2019-10-24] MEDS: Lisinopril 10 MG TAB PO SCH (09:24)
[2019-10-24] MEDS: Ubidecarenone 50 MG CAP PO SCH (09:24)
[2019-10-24] MEDS: OMEGA ACID ETHYL ESTERS PO SCH ×2 (09:25→20:53)
[2019-10-24] MEDS: Carvedilol 3.125 MG TAB PO SCH ×2 (09:25→20:53)
[2019-10-24] MEDS: Fluticasone Propionate Nasal Spray 16 gm Bottle NASAL SCH (09:25)
[2019-10-24] MEDS: IPRATROPIUM BROMIDE EA NARE SCH ×2 (09:26→20:52)
--- NOTE | 2019-10-24 09:45 | PRG ---
DATE OF SERVICE: 10/24/2019 SUBJECTIVE: The patient said he is doing very well today. Yesterday, he was tired from his trip to see Dr. Fareed Kendall, his surgeon. At that visit, the shashank were removed from the left BKA stump, and he told him that this should just be washed with soap and water daily and continue to wear the outreach manager, compression stocking. He told him the right foot was doing well, and he can fully weightbear with that foot. The patient said that he and his feels like that they will be able to manage fine at home and looking to be discharged tomorrow, 10/24. OBJECTIVE: GENERAL: The patient is alert, appears in no distress. VITAL SIGNS: His temp is 98.4, pulse 81, respirations 16, O2 saturation 97% on room air, blood pressure 150/67. LUNGS: Clear. HEART: Regular rate. EXTREMITIES: Left BKA stump incision healing well. There is no redness, no drainage. The shashank have been removed. Right foot is healing well. There is no redness, no drainage. ASSESSMENT: 1. Continued improvement. His strength is improving. 2. Wounds on the below-knee amputation stump and on the right foot are all healing. 3. Generalized coronary artery disease. a. Stable. PLAN: We will continue PT, OT. Anticipate discharge tomorrow. Job ID: [id number]
[2019-10-24] MEDS: Aspirin 325 MG TAB PO SCH (20:52)
[2019-10-24] MEDS: Melatonin 3 MG TAB PO PRN (20:52)
[2019-10-24] MEDS: Fenofibrate Nanocrystallized 145 MG TAB PO SCH (20:52)
[2019-10-24] MEDS: Acetaminophen 325 MG TAB PO PRN (20:53)
[2019-10-24] MEDS: Rosuvastatin 10 MG TAB PO SCH (20:53)
[2019-10-24] MEDS: Loratadine 10 MG TAB PO SCH (20:53)
[2019-10-24] MEDS: Mirtazapine 15 MG TAB PO SCH (20:53)
[2019-10-24] MEDS: Polyethylene Glycol 3350 17 GM Packet PO SCH (20:58)
[2019-10-25] MEDS: Acetaminophen 325 MG TAB PO PRN (00:54)
[2019-10-25 09:12] VITALS: BP 143/64; TEMP 97.2
[2019-10-25] MEDS: Fluticasone Propionate Nasal Spray 16 gm Bottle NASAL SCH (10:31)
[2019-10-25] MEDS: Ubidecarenone 50 MG CAP PO SCH (10:32)
[2019-10-25] MEDS: Lisinopril 10 MG TAB PO SCH (10:32)
[2019-10-25] MEDS: Carvedilol 3.125 MG TAB PO SCH (10:33)
[2019-10-25] MEDS: Saccharomyces boulardii 250 MG CAP PO SCH (10:33)
[2019-10-25] MEDS: OMEGA ACID ETHYL ESTERS PO SCH (10:33)
[2019-10-25] MEDS: IPRATROPIUM BROMIDE EA NARE SCH (10:33)
--- NOTE | 2019-10-26 08:00 | DIS ---
DATE OF ADMISSION: 10/01/2019 DATE OF DISCHARGE: 10/25/2019 FINAL DIAGNOSES: 1. Generalized weakness and deconditioning. a. Status post bilateral transmetatarsal amputation of the feet on 2019. b. Status post pfsbp-jnr-hjts amputation of the left leg on 09/26/2019. c. Improving. Ambulates with the use of a walker and hopping and uses a wheelchair as of 10/24. 2. 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 a. Healing well. 3. Status post aicnm-wjy-zgng amputation of the left leg on 09/26/2019 following progressive ischemic changes with necrotic changes of the wound edges and breakdown of the incision from the transmetatarsal amputation on 08/27/2019. a. Healing well. Sutures removed on 10/22. 4. Coronary artery disease. a. Status post coronary artery bypass grafting, 1987. b. Status post stents in 2005. c. Complicated by ischemic cardiomyopathy with improved ejection fraction from 40% to 45% to 50% to 55%. Presently, no evidence of acute congestive heart failure as of 10/24. 5. Carotid artery disease, status post bilateral endarterectomy. 6. Hypertension. 7. Hypercholesterolemia. 8. Status post pacemaker placement for bradycardia and syncope, no recurrence. 9. Tobacco abuse. a. Stopped smoking in 1987. b. Stopped smokeless tobacco on 08/27/2019. 10. Insomnia, controlled. SUMMARY: The patient is a 74-year-old white male, who has a history of generalized atherosclerosis for which he has had coronary artery disease requiring bypass and later stents and complicated by ischemic cardiomyopathy with now ejection fraction 50% to 55%. He has had no recent episodes of congestive failure. He has required bilateral endarterectomies and he has required multiple procedures to the lower extremities for his peripheral artery disease. He also has a history of tobacco abuse, hypertension and hypercholesterolemia. The patient had developed progressive ischemic changes of his feet secondary to small-vessel disease in his feet. He was hospitalized at [facility] on 08/27/2019 and underwent bilateral guillotine type transmetatarsal amputation. He developed progressive ischemic changes in the incision on the left foot with necrotic changes along the skin edges and breakdown of the incision as a result. He required a BK amputation of the left leg on 09/26/2019. He was transferred to [facility] on 10/01/2019 for admission to the [facility] and for PT and OT. During his hospitalization, the patient's wound to the right foot continued to heal and by his discharge looked excellent. The wound to the left BK stump gradually improved and followup visit with his surgeon, Dr. Fareed Kendall on 09/26, all the sutures were removed and he was instructed to keep the foot and the BK stump clean with soap and water and he has been at full weightbearing with the right foot. Physical Therapy worked with him. His upper body strength showed marked improvement. Gradually, he was able to ambulate with the use of a walker and by hopping and could go up to 20 feet several times a day. He had no problems during his hospitalization with his blood pressure nor any chest pain. His pain was well controlled. He was gradually tapered from his fentanyl patch and the fentanyl patch 25 mcg/hour was stopped. The following day, he became very restless and was having withdrawal symptoms from stopping of the fentanyl patch. This was restarted with resolution of the symptoms and then a few days later it was reduced to 12 mcg/hour. He did very well with this. He had no pain and no more the restlessness. Then the 12 mcg/hour fentanyl patch was stopped. He had no trouble with this. He did have significant problem with sleep, was tried on multiple agents without much help. Eventually, he was placed on mirtazapine 15 mg at bedtime and this seemed to work very well for him. His appetite improved , on 10/24 he was doing excellent. The incision on the right foot and on the left BK stump were all healing. His condition was such, it was felt like he could be managed at home with his as a primary caregiver. They plan on coming [facility] to the [facility] for his continued physical therapy. He is due to see the prosthesis people next week to begin working with them for eventual prosthesis of that left leg and he will see Dr. Kendall in 2 months and myself in 2 weeks. LABORATORY DATA: His last lab on 10/12 showed an H and H of 10.9 and 36.1 with a platelet count of 254, white blood cell count of 6600. On 10/12, his sodium 131 , potassium 4, BUN 19, creatinine 0.85, glucose 93, GFR 88. DISPOSITION DIET: Regular diet. ACTIVITIES: 1. Up ad tamara. 2. Ambulate with the use of a walker and with hopping. 3. He will continue physical therapy at the [facility]. 4. Care of the incisions, clean with soap and water and blot dry daily. 5. Continue to wear the die forger stocking on the left stump. MEDICATIONS: 1. Lovaza 2 b.i.d. 2. Acetaminophen 325 mg two every 4 hours as needed. 3. Aspirin 325 mg at bedtime. 4. Carvedilol 3.125 mg b.i.d. 5. CoQ10 100 mg daily. 6. TriCor 145 mg at bedtime. 7. Flonase 2 sprays in each nostril daily as needed. 8. Lisinopril 10 mg daily. 9. Loratadine 10 mg at bedtime p.r.n. 10. Melatonin 3 mg at bedtime as needed. 11. Mirtazapine 15 mg at bedtime. 12. Zofran oral disintegrating tablets 4 mg every 4 hours as needed. 13. Pantoprazole 40 mg daily. 14. Ranexa 1000 mg b.i.d. 15. Rosuvastatin 40 mg at bedtime. FOLLOWUP: 1. Appointment with prosthesis people in [address] Fareed Kendall, his cardiovascular surgeon in 2 months. 3. With myself in 2 weeks with a CBC and basic metabolic panel. CODE STATUS: Full code. Job ID: [id number] MTDD
== END 2019-10-25 12:30 | disposition home or self-care (01) | DRG 561 ==
LOC: MADMS 16:20
PROVIDERS: ADMIT Family Medicine; ATTEND Family Medicine
DX: Z47.81 Encounter for orthopedic aftercare following surgical amputation (principal); I25.10 Atherosclerotic heart disease of native coronary artery without angina pectoris; E78.00 Pure hypercholesterolemia, unspecified; G47.00 Insomnia, unspecified; F17.290 Nicotine dependence, other tobacco product, uncomplicated; Z96.651 Presence of right artificial knee joint; R45.1 Restlessness and agitation; I25.5 Ischemic cardiomyopathy; R53.81 Other malaise; I10 Essential (primary) hypertension; Z99.3 Dependence on wheelchair; Z95.1 Presence of aortocoronary bypass graft; Z95.5 Presence of coronary angioplasty implant and graft; Z89.512 Acquired absence of left leg below knee; Z89.432 Acquired absence of left foot
CPT/HCPCS: 36415; 80048; 80053; 85007; 85025; 85027; Q0162

== ENCOUNTER 2021-11-13 13:52 | Inpatient (IN) | payer MEDICARE, BC ==
[2021-11-13] MEDS ORDERED: Polyethylene Glycol 3350 17 GM Packet PO PRN (19:42)
[2021-11-13] MEDS ORDERED: Milk Of Magnesia 30 ML UDCUP PO PRN (19:42)
[2021-11-13] MEDS ORDERED: Acetaminophen/Codeine 30-300mg Tablet PO PRN (19:42)
[2021-11-13] MEDS ORDERED: Evolocumab [Repatha Sureclick] 140 MG/ML Pen.Injctr SC SCH (20:15)
[2021-11-13] MEDS: Sodium Chloride 1 GM TAB PO SCH (21:36)
[2021-11-13] MEDS: Loratadine 10 MG TAB PO SCH (21:36)
[2021-11-13] MEDS: Mirtazapine 15 MG TAB PO SCH (21:36)
[2021-11-13] MEDS: Carvedilol 3.125 MG TAB PO SCH (21:36)
[2021-11-13] MEDS: Aspirin Chewable 81 MG TAB PO SCH (21:36)
[2021-11-13] MEDS: Melatonin 3 MG TAB PO PRN (21:43)
[2021-11-13] MEDS: Acetaminophen 500 MG TAB PO PRN (21:44)
[2021-11-14 05:18] LABS: #Lymphocytes 0.9 thou/uL (1.20-3.40); #Monocytes 0.5 thou/uL (0.11-0.59); #Neutrophils 5.1 thou/uL (1.40-6.50); %Basophils 0.6 % (0.0-1.0); %Eosinophils 0.5 % (0.0-10.0); %Lymphocytes 13.7 % (21.0-51.0); %Monocytes 7.1 % (0.0-10.0); %Neutrophils 78.1 % (42.0-75.0); Hemoglobin 8.5 g/dL (14.0-18.0); Mean Corpuscular HGB CONC 32.5 g/dL (32.0-36.0); Mean Corpuscular Hemoglobin 29.3 pg (27.0-31.0); Mean Platelet Volume 6.3 fL (7.4-10.4); Platelet Count 223 thou/uL (130-400); RBC Distribution Width 15.6 % (11.5-14.5); Red Blood Cell (RBC) Count 2.91 mill/uL (4.70-6.10); White Blood Cell (WBC) Count 6.5 thou/uL (4.8-10.8)
[2021-11-14 05:45] LABS: ALT (SGPT) 13 U/L (8-55); AST (SGOT) 16 U/L (5-34); Albumin 2.7 g/dL (3.4-4.8); Alkaline Phosphatase 21 U/L (40-110); Anion Gap 14 mmol/L (10-20); BUN (Urea Nitrogen) 10 mg/dL (8.4-25.7); Bilirubin, Total 0.7 mg/dL (0.2-1.2); Calc. Creatinine Clearance 111 mL/min (70-130); Calcium 8.6 mg/dL (7.8-10.44); Carbon Dioxide 24 mmol/L (23-31); Chloride 104 mmol/L (98-107); Globulin 2.9 g/dL (2.4-3.5); Glucose 111 mg/dL (83-110); Potassium 3.7 mmol/L (3.5-5.1); Protein, Total 5.6 g/dL (5.8-8.1); Sodium 138 mmol/L (136-145)
[2021-11-14] MEDS: Sodium Chloride 1 GM TAB PO SCH ×3 (08:20→21:55)
[2021-11-14] MEDS: Lisinopril 10 MG TAB PO SCH (08:20)
[2021-11-14] MEDS: Cholecalciferol (Vitamin D3) 5,000 UNITS CAPSULE PO SCH (08:20)
[2021-11-14] MEDS: Carvedilol 3.125 MG TAB PO SCH ×2 (08:20→21:59)
[2021-11-14] MEDS: Icosapent Ethyl [Vascepa] 1 GM Capsule PO SCH (19:00)
[2021-11-14 21:23] LABS: SARS-CoV-2 PCR by NAA Not Detected (NotDetected)
[2021-11-14] MEDS: Mirtazapine 15 MG TAB PO SCH (21:55)
[2021-11-14] MEDS: Aspirin Chewable 81 MG TAB PO SCH (21:55)
[2021-11-14] MEDS: Loratadine 10 MG TAB PO SCH (21:55)
[2021-11-14] MEDS: Acetaminophen 500 MG TAB PO PRN (22:05)
[2021-11-15] MEDS: Icosapent Ethyl [Vascepa] 1 GM Capsule PO SCH ×3 (06:16→21:15)
[2021-11-15] MEDS: Sodium Chloride 1 GM TAB PO SCH ×3 (08:22→21:11)
[2021-11-15] MEDS: Carvedilol 3.125 MG TAB PO SCH ×2 (08:22→21:11)
[2021-11-15] MEDS: Cholecalciferol (Vitamin D3) 5,000 UNITS CAPSULE PO SCH (08:22)
[2021-11-15] MEDS: Lisinopril 10 MG TAB PO SCH (08:22)
[2021-11-15 16:15] LABS: Bilirubin Negative (Negative); Blood, Urine Negative (Negative); Glucose, Urine (Dipstick) 100 mg/dL (Negative); Ketone, Urine Negative (Negative); Leukocyte Negative (Negative); Nitrite Negative (Negative); Protein, Urine (Dipstick) 30 mg/dL (Neg-Trace)
[2021-11-15 16:30] LABS: Clarity Hazy (Clear); Urine Culture Reflex No No
[2021-11-15 16:31] LABS: Bacteria/HPF Rare-Few HPF (None Seen); RBC/HPF 0-3 HPF (0-3); Squamous Epithelial 0-3 HPF (0-3); WBC/HPF 0-3 HPF (0-3)
[2021-11-15] MEDS: Aspirin Chewable 81 MG TAB PO SCH (21:11)
[2021-11-15] MEDS: Loratadine 10 MG TAB PO SCH (21:11)
[2021-11-15] MEDS: Mirtazapine 15 MG TAB PO SCH (21:11)
[2021-11-15] MEDS: Melatonin 3 MG TAB PO PRN (21:11)
[2021-11-15] MEDS: Acetaminophen 500 MG TAB PO PRN (21:12)
[2021-11-16] MEDS: Carvedilol 3.125 MG TAB PO SCH ×2 (08:09→20:29)
[2021-11-16] MEDS: Lisinopril 10 MG TAB PO SCH (08:09)
[2021-11-16] MEDS: Cholecalciferol (Vitamin D3) 5,000 UNITS CAPSULE PO SCH (08:09)
[2021-11-16] MEDS: Icosapent Ethyl [Vascepa] 1 GM Capsule PO SCH ×2 (08:12→20:31)
[2021-11-16] MEDS: Sodium Chloride 1 GM TAB PO SCH ×3 (08:15→20:28)
[2021-11-16] MEDS: Acetaminophen 500 MG TAB PO PRN ×2 (09:53→17:32)
[2021-11-16] MEDS ORDERED: Evolocumab [Repatha Sureclick] 140 MG/ML Pen.Injctr SC SCH (13:15)
[2021-11-16] MEDS ORDERED: Melatonin 3 MG TAB PO PRN (17:24)
[2021-11-16] MEDS: Aspirin Chewable 81 MG TAB PO SCH (20:28)
[2021-11-16] MEDS: Loratadine 10 MG TAB PO SCH (20:29)
[2021-11-16] MEDS: Melatonin 3 MG TAB PO SCH (20:29)
[2021-11-16] MEDS: Mirtazapine 30 MG Soltab PO SCH (20:29)
[2021-11-17] MEDS: Sodium Chloride 1 GM TAB PO SCH ×3 (08:25→22:08)
[2021-11-17] MEDS: Carvedilol 3.125 MG TAB PO SCH ×2 (08:26→22:08)
[2021-11-17] MEDS: Lisinopril 10 MG TAB PO SCH (08:26)
[2021-11-17] MEDS: Cholecalciferol (Vitamin D3) 5,000 UNITS CAPSULE PO SCH (08:27)
[2021-11-17] MEDS: Icosapent Ethyl [Vascepa] 1 GM Capsule PO SCH ×3 (08:29→17:11)
[2021-11-17] MEDS: Acetaminophen 500 MG TAB PO PRN ×2 (15:32→22:09)
[2021-11-17] MEDS: Loratadine 10 MG TAB PO SCH (22:08)
[2021-11-17] MEDS: Aspirin Chewable 81 MG TAB PO SCH (22:08)
[2021-11-17] MEDS: Mirtazapine 30 MG Soltab PO SCH (22:09)
[2021-11-17] MEDS: Melatonin 3 MG TAB PO SCH (22:09)
[2021-11-18] MEDS: Sodium Chloride 1 GM TAB PO SCH ×3 (08:27→20:23)
[2021-11-18] MEDS: Acetaminophen 500 MG TAB PO PRN ×2 (08:28→21:57)
[2021-11-18] MEDS: Lisinopril 10 MG TAB PO SCH (08:28)
[2021-11-18] MEDS: Carvedilol 3.125 MG TAB PO SCH ×2 (08:28→20:22)
[2021-11-18] MEDS: Cholecalciferol (Vitamin D3) 5,000 UNITS CAPSULE PO SCH (08:28)
[2021-11-18] MEDS: Icosapent Ethyl [Vascepa] 1 GM Capsule PO SCH ×2 (08:30→17:19)
[2021-11-18] MEDS: Melatonin 3 MG TAB PO SCH (20:22)
[2021-11-18] MEDS: Mirtazapine 30 MG Soltab PO SCH (20:22)
[2021-11-18] MEDS: Loratadine 10 MG TAB PO SCH (20:22)
[2021-11-18] MEDS: Aspirin Chewable 81 MG TAB PO SCH (20:26)
[2021-11-19] MEDS: Sodium Chloride 1 GM TAB PO SCH ×3 (09:02→16:58)
[2021-11-19] MEDS: Lisinopril 10 MG TAB PO SCH (09:03)
[2021-11-19] MEDS: Acetaminophen 500 MG TAB PO PRN (09:03)
[2021-11-19] MEDS: Carvedilol 3.125 MG TAB PO SCH ×2 (09:03→21:10)
[2021-11-19] MEDS: Cholecalciferol (Vitamin D3) 5,000 UNITS CAPSULE PO SCH (09:04)
[2021-11-19] MEDS: Icosapent Ethyl [Vascepa] 1 GM Capsule PO SCH ×2 (09:44→16:59)
[2021-11-19] MEDS: Loratadine 10 MG TAB PO SCH (21:10)
[2021-11-19] MEDS: Mirtazapine 30 MG Soltab PO SCH (21:11)
[2021-11-19] MEDS: Aspirin Chewable 81 MG TAB PO SCH (21:11)
[2021-11-19] MEDS: Melatonin 3 MG TAB PO SCH (21:11)
[2021-11-20] MEDS: Lisinopril 10 MG TAB PO SCH (08:37)
[2021-11-20] MEDS: Sodium Chloride 1 GM TAB PO SCH (08:40)
[2021-11-20] MEDS: Carvedilol 3.125 MG TAB PO SCH ×2 (08:40→22:28)
[2021-11-20] MEDS: Cholecalciferol (Vitamin D3) 5,000 UNITS CAPSULE PO SCH (08:40)
[2021-11-20] MEDS: Acetaminophen 500 MG TAB PO PRN ×2 (08:40→22:28)
[2021-11-20] MEDS: Icosapent Ethyl [Vascepa] 1 GM Capsule PO SCH ×2 (08:42→18:02)
[2021-11-20 15:49] LABS: SARS-CoV-2 PCR by NAA Not Detected (NotDetected)
[2021-11-20] MEDS: Aspirin Chewable 81 MG TAB PO SCH (22:27)
[2021-11-20] MEDS: Melatonin 3 MG TAB PO SCH (22:28)
[2021-11-20] MEDS: Mirtazapine 30 MG Soltab PO SCH (22:28)
[2021-11-21] MEDS: Carvedilol 3.125 MG TAB PO SCH ×2 (08:54→20:34)
[2021-11-21] MEDS: Cholecalciferol (Vitamin D3) 5,000 UNITS CAPSULE PO SCH (08:54)
[2021-11-21] MEDS: Lisinopril 10 MG TAB PO SCH (08:54)
[2021-11-21] MEDS: Sodium Chloride 1 GM TAB PO SCH (08:54)
[2021-11-21] MEDS: Icosapent Ethyl [Vascepa] 1 GM Capsule PO SCH ×2 (08:59→17:25)
[2021-11-21] MEDS: Aspirin Chewable 81 MG TAB PO SCH (20:33)
[2021-11-21] MEDS: Melatonin 3 MG TAB PO SCH (20:33)
[2021-11-21] MEDS: Mirtazapine 30 MG Soltab PO SCH (20:33)
[2021-11-22] MEDS: Lisinopril 10 MG TAB PO SCH (07:23)
[2021-11-22] MEDS: Carvedilol 3.125 MG TAB PO SCH ×2 (07:24→20:39)
[2021-11-22] MEDS: Acetaminophen 500 MG TAB PO PRN ×2 (08:55→20:49)
[2021-11-22] MEDS: Sodium Chloride 1 GM TAB PO SCH (08:56)
[2021-11-22] MEDS: Cholecalciferol (Vitamin D3) 5,000 UNITS CAPSULE PO SCH (08:56)
[2021-11-22] MEDS: Icosapent Ethyl [Vascepa] 1 GM Capsule PO SCH ×2 (08:57→17:27)
[2021-11-22] MEDS: Mirtazapine 30 MG Soltab PO SCH (20:39)
[2021-11-22] MEDS: Aspirin Chewable 81 MG TAB PO SCH (20:39)
[2021-11-22] MEDS: Melatonin 3 MG TAB PO SCH (20:39)
[2021-11-23 05:15] LABS: #Basophils 0.1 thou/uL (0.0-0.2); #Eosinphils 0.2 thou/uL (0.0-0.7); #Lymphocytes 1.3 thou/uL (1.20-3.40); #Neutrophils 5.9 thou/uL (1.40-6.50); %Basophils 1.4 % (0.0-1.0); %Eosinophils 2.2 % (0.0-10.0); %Lymphocytes 15.5 % (21.0-51.0); %Monocytes 11.2 % (0.0-10.0); %Neutrophils 69.7 % (42.0-75.0); Hemoglobin 8.6 g/dL (14.0-18.0); Mean Corpuscular HGB CONC 30.9 g/dL (32.0-36.0); Mean Corpuscular Hemoglobin 28.3 pg (27.0-31.0); Mean Corpuscular Volume 91.5 fL (78.0-98.0); Mean Platelet Volume 6.9 fL (7.4-10.4); Platelet Count 477 thou/uL (130-400); RBC Distribution Width 15.9 % (11.5-14.5); Red Blood Cell (RBC) Count 3.06 mill/uL (4.70-6.10); White Blood Cell (WBC) Count 8.4 thou/uL (4.8-10.8)
[2021-11-23 05:31] LABS: Anion Gap 18 mmol/L (10-20); BUN (Urea Nitrogen) 9 mg/dL (8.4-25.7); Calc. Creatinine Clearance 110 mL/min (70-130); Calcium 8.5 mg/dL (7.8-10.44); Carbon Dioxide 23 mmol/L (23-31); Chloride 97 mmol/L (98-107); Glucose 97 mg/dL (83-110); Sodium 134 mmol/L (136-145)
[2021-11-23] MEDS: Sodium Chloride 1 GM TAB PO SCH (08:23)
[2021-11-23] MEDS: Cholecalciferol (Vitamin D3) 5,000 UNITS CAPSULE PO SCH (08:23)
[2021-11-23] MEDS: Carvedilol 3.125 MG TAB PO SCH ×2 (08:24→20:58)
[2021-11-23] MEDS: Lisinopril 10 MG TAB PO SCH (08:33)
[2021-11-23] MEDS: Icosapent Ethyl [Vascepa] 1 GM Capsule PO SCH ×2 (08:34→17:24)
[2021-11-23] MEDS: Acetaminophen 500 MG TAB PO PRN (09:25)
[2021-11-23 14:44] VITALS: BMI 22.4
[2021-11-23] MEDS: Melatonin 3 MG TAB PO SCH (20:57)
[2021-11-23] MEDS: Aspirin Chewable 81 MG TAB PO SCH (20:57)
[2021-11-23] MEDS: Mirtazapine 30 MG Soltab PO SCH (20:58)
[2021-11-24] MEDS ORDERED: Lantiseptic Ointment 130 GM JAR TOP PRN (00:14)
[2021-11-24] MEDS: Cholecalciferol (Vitamin D3) 5,000 UNITS CAPSULE PO SCH (08:00)
[2021-11-24] MEDS: Carvedilol 3.125 MG TAB PO SCH ×2 (08:01→22:08)
[2021-11-24] MEDS: Icosapent Ethyl [Vascepa] 1 GM Capsule PO SCH ×2 (08:01→17:08)
[2021-11-24] MEDS: Lantiseptic Ointment 130 GM JAR TOP SCH ×2 (08:02→22:08)
[2021-11-24] MEDS: Lisinopril 10 MG TAB PO SCH (08:03)
[2021-11-24] MEDS: Sodium Chloride 1 GM TAB PO SCH (08:05)
[2021-11-24] MEDS: Acetaminophen 500 MG TAB PO PRN (22:07)
[2021-11-24] MEDS: Mirtazapine 30 MG Soltab PO SCH (22:07)
[2021-11-24] MEDS: Melatonin 3 MG TAB PO SCH (22:07)
[2021-11-24] MEDS: Aspirin Chewable 81 MG TAB PO SCH (22:07)
[2021-11-25] MEDS: Lantiseptic Ointment 130 GM JAR TOP SCH ×2 (08:26→21:22)
[2021-11-25] MEDS: Lisinopril 10 MG TAB PO SCH (08:26)
[2021-11-25] MEDS: Sodium Chloride 1 GM TAB PO SCH (08:27)
[2021-11-25] MEDS: Carvedilol 3.125 MG TAB PO SCH ×2 (08:27→21:21)
[2021-11-25] MEDS: Cholecalciferol (Vitamin D3) 5,000 UNITS CAPSULE PO SCH (08:28)
[2021-11-25] MEDS: Icosapent Ethyl [Vascepa] 1 GM Capsule PO SCH ×2 (08:28→16:24)
[2021-11-25] MEDS: Acetaminophen 500 MG TAB PO PRN (08:45)
[2021-11-25] MEDS: Doxycycline 100 MG CAP PO SCH ×2 (08:46→21:21)
[2021-11-25] MEDS: Aspirin Chewable 81 MG TAB PO SCH (21:20)
[2021-11-25] MEDS: Mirtazapine 30 MG Soltab PO SCH (21:20)
[2021-11-25] MEDS: Melatonin 3 MG TAB PO SCH (21:21)
[2021-11-26] MEDS: Carvedilol 3.125 MG TAB PO SCH ×2 (08:44→21:23)
[2021-11-26] MEDS: Doxycycline 100 MG CAP PO SCH ×2 (08:44→21:23)
[2021-11-26] MEDS: Lantiseptic Ointment 130 GM JAR TOP SCH ×2 (08:44→21:24)
[2021-11-26] MEDS: Cholecalciferol (Vitamin D3) 5,000 UNITS CAPSULE PO SCH (08:44)
[2021-11-26] MEDS: Lisinopril 10 MG TAB PO SCH (08:44)
[2021-11-26] MEDS: Sodium Chloride 1 GM TAB PO SCH (08:44)
[2021-11-26] MEDS: Icosapent Ethyl [Vascepa] 1 GM Capsule PO SCH ×2 (08:45→17:29)
[2021-11-26] MEDS: Acetaminophen 500 MG TAB PO PRN (08:52)
[2021-11-26] MEDS: Melatonin 3 MG TAB PO SCH (21:23)
[2021-11-26] MEDS: Aspirin Chewable 81 MG TAB PO SCH (21:23)
[2021-11-26] MEDS: Mirtazapine 30 MG Soltab PO SCH (21:23)
[2021-11-27] MEDS: Acetaminophen 500 MG TAB PO PRN ×2 (08:22→21:26)
[2021-11-27] MEDS: Sodium Chloride 1 GM TAB PO SCH (08:24)
[2021-11-27] MEDS: Lisinopril 10 MG TAB PO SCH (08:24)
[2021-11-27] MEDS: Cholecalciferol (Vitamin D3) 5,000 UNITS CAPSULE PO SCH (08:24)
[2021-11-27] MEDS: Doxycycline 100 MG CAP PO SCH ×2 (08:24→21:25)
[2021-11-27] MEDS: Carvedilol 3.125 MG TAB PO SCH ×2 (08:24→21:26)
[2021-11-27] MEDS: Polyethylene Glycol 3350 17 GM Packet PO SCH (08:25)
[2021-11-27] MEDS: Icosapent Ethyl [Vascepa] 1 GM Capsule PO SCH ×2 (08:25→16:59)
[2021-11-27] MEDS: Lantiseptic Ointment 130 GM JAR TOP SCH ×2 (08:26→21:38)
[2021-11-27] MEDS: Evolocumab [Repatha Sureclick] 140 MG/ML Pen.Injctr SC SCH ×2 (08:29→14:30)
[2021-11-27 16:39] LABS: SARS-CoV-2 PCR by NAA Not Detected (NotDetected)
[2021-11-27] MEDS: Mirtazapine 30 MG Soltab PO SCH (21:25)
[2021-11-27] MEDS: Aspirin Chewable 81 MG TAB PO SCH (21:25)
[2021-11-27] MEDS: Melatonin 3 MG TAB PO SCH (21:25)
[2021-11-28] MEDS: Acetaminophen 500 MG TAB PO PRN ×3 (08:41→21:56)
[2021-11-28] MEDS: Doxycycline 100 MG CAP PO SCH ×2 (08:48→21:55)
[2021-11-28] MEDS: Polyethylene Glycol 3350 17 GM Packet PO SCH (08:48)
[2021-11-28] MEDS: Cholecalciferol (Vitamin D3) 5,000 UNITS CAPSULE PO SCH (08:48)
[2021-11-28] MEDS: Sodium Chloride 1 GM TAB PO SCH (08:48)
[2021-11-28] MEDS: Carvedilol 3.125 MG TAB PO SCH ×2 (08:48→21:56)
[2021-11-28] MEDS: Lisinopril 10 MG TAB PO SCH (08:48)
[2021-11-28] MEDS: Icosapent Ethyl [Vascepa] 1 GM Capsule PO SCH ×2 (08:58→17:30)
[2021-11-28] MEDS: Lantiseptic Ointment 130 GM JAR TOP SCH ×2 (09:56→22:09)
[2021-11-28] MEDS: Ondansetron ODT 4 MG TAB PO PRN (17:31)
[2021-11-28] MEDS: Aspirin Chewable 81 MG TAB PO SCH (21:55)
[2021-11-28] MEDS: Mirtazapine 30 MG Soltab PO SCH (21:55)
[2021-11-28] MEDS: Melatonin 3 MG TAB PO SCH (21:55)
[2021-11-29] MEDS: Cholecalciferol (Vitamin D3) 5,000 UNITS CAPSULE PO SCH (08:56)
[2021-11-29] MEDS: Icosapent Ethyl [Vascepa] 1 GM Capsule PO SCH ×2 (08:56→17:11)
[2021-11-29] MEDS: Doxycycline 100 MG CAP PO SCH ×2 (08:57→22:10)
[2021-11-29] MEDS: Lisinopril 10 MG TAB PO SCH (08:57)
[2021-11-29] MEDS: Carvedilol 3.125 MG TAB PO SCH ×2 (08:57→22:09)
[2021-11-29] MEDS: Acetaminophen 500 MG TAB PO PRN ×3 (08:58→22:09)
[2021-11-29] MEDS: Polyethylene Glycol 3350 17 GM Packet PO SCH (09:07)
[2021-11-29] MEDS: Lantiseptic Ointment 130 GM JAR TOP SCH ×2 (09:08→22:10)
[2021-11-29] MEDS: Melatonin 3 MG TAB PO SCH (22:09)
[2021-11-29] MEDS: Aspirin Chewable 81 MG TAB PO SCH (22:10)
[2021-11-29] MEDS: Mirtazapine 30 MG Soltab PO SCH (22:10)
[2021-11-29] MEDS: Ondansetron ODT 4 MG TAB PO PRN (22:50)
[2021-11-30 05:30] LABS: #Eosinphils 0.1 thou/uL (0.0-0.7); #Lymphocytes 1.2 thou/uL (1.20-3.40); #Monocytes 0.6 thou/uL (0.11-0.59); #Neutrophils 6.6 thou/uL (1.40-6.50); %Basophils 0.5 % (0.0-1.0); %Eosinophils 0.7 % (0.0-10.0); %Lymphocytes 14.6 % (21.0-51.0); %Neutrophils 77.2 % (42.0-75.0); Hemoglobin 8.4 g/dL (14.0-18.0); Mean Corpuscular HGB CONC 31.8 g/dL (32.0-36.0); Mean Corpuscular Hemoglobin 28.6 pg (27.0-31.0); Mean Corpuscular Volume 89.8 fL (78.0-98.0); Mean Platelet Volume 6.5 fL (7.4-10.4); Platelet Count 381 thou/uL (130-400); RBC Distribution Width 16.1 % (11.5-14.5); Red Blood Cell (RBC) Count 2.93 mill/uL (4.70-6.10); White Blood Cell (WBC) Count 8.5 thou/uL (4.8-10.8)
[2021-11-30 05:50] LABS: Anion Gap 14 mmol/L (10-20); BUN (Urea Nitrogen) 9 mg/dL (8.4-25.7); Calc. Creatinine Clearance 134 mL/min (70-130); Calcium 8.3 mg/dL (7.8-10.44); Carbon Dioxide 25 mmol/L (23-31); Chloride 85 mmol/L (98-107); Glucose 84 mg/dL (83-110); Potassium 3.9 mmol/L (3.5-5.1); Sodium 120 mmol/L (136-145)
[2021-11-30] MEDS: Sodium Chloride 1 GM TAB PO SCH ×3 (08:23→21:31)
[2021-11-30] MEDS: Ondansetron ODT 4 MG TAB PO PRN ×2 (08:23→16:31)
[2021-11-30] MEDS: Polyethylene Glycol 3350 17 GM Packet PO SCH (08:25)
[2021-11-30] MEDS: Doxycycline 100 MG CAP PO SCH (08:25)
[2021-11-30] MEDS: Cholecalciferol (Vitamin D3) 5,000 UNITS CAPSULE PO SCH (08:25)
[2021-11-30] MEDS: Lisinopril 10 MG TAB PO SCH (08:26)
[2021-11-30] MEDS: Carvedilol 3.125 MG TAB PO SCH ×2 (08:26→21:28)
[2021-11-30] MEDS: Icosapent Ethyl [Vascepa] 1 GM Capsule PO SCH ×2 (08:28→16:49)
[2021-11-30] MEDS: Lantiseptic Ointment 130 GM JAR TOP SCH ×2 (08:35→21:29)
[2021-11-30 18:01] LABS: ALT (SGPT) 7 U/L (8-55); AST (SGOT) 12 U/L (5-34); Albumin 2.4 g/dL (3.4-4.8); Alkaline Phosphatase 26 U/L (40-110); Anion Gap 17 mmol/L (10-20); BUN (Urea Nitrogen) 8 mg/dL (8.4-25.7); Bilirubin, Total 0.5 mg/dL (0.2-1.2); CK (CPK) 17 U/L (30-200); Calc. Creatinine Clearance 137 mL/min (70-130); Calcium 8.1 mg/dL (7.8-10.44); Carbon Dioxide 23 mmol/L (23-31); Chloride 86 mmol/L (98-107); Globulin 3.4 g/dL (2.4-3.5); Glucose 76 mg/dL (83-110); Potassium 3.9 mmol/L (3.5-5.1); Protein, Total 5.8 g/dL (5.8-8.1); Sodium 122 mmol/L (136-145)
[2021-11-30 18:13] LABS: #Eosinphils 0.1 thou/uL (0.0-0.7); #Lymphocytes 1.3 thou/uL (1.20-3.40); #Monocytes 0.7 thou/uL (0.11-0.59); %Basophils 0.4 % (0.0-1.0); %Eosinophils 0.6 % (0.0-10.0); %Lymphocytes 14.4 % (21.0-51.0); %Neutrophils 76.5 % (42.0-75.0); Hemoglobin 7.5 g/dL (14.0-18.0); Mean Corpuscular HGB CONC 28.7 g/dL (32.0-36.0); Mean Corpuscular Hemoglobin 26.1 pg (27.0-31.0); Mean Platelet Volume 6.7 fL (7.4-10.4); Platelet Count 377 thou/uL (130-400); RBC Distribution Width 15.8 % (11.5-14.5); Red Blood Cell (RBC) Count 2.88 mill/uL (4.70-6.10); White Blood Cell (WBC) Count 9.1 thou/uL (4.8-10.8)
[2021-11-30] MEDS: Sodium Chloride 0.9% 1,000 ML IV SCH (18:13)
[2021-11-30 18:18] LABS: Bilirubin Small (Negative); Blood, Urine Negative (Negative); Glucose, Urine (Dipstick) Negative (Negative); Ketone, Urine Trace mg/dL (Negative); Leukocyte Negative (Negative); Nitrite Negative (Negative); Protein, Urine (Dipstick) 100 mg/dL (Neg-Trace); pH, Urine 5.5 (5.0-9.0)
[2021-11-30 18:19] LABS: Anisocytosis SLIGHT = 6-15 cells (100X) (0-5/hpf); Hypochromia SLIGHT = 6-15 cells (100X) (0-5/hpf); Platelet Morphology Comment Appears Adequate
[2021-11-30 18:29] LABS: Clarity Hazy (Clear)
[2021-11-30 18:30] LABS: Bacteria/HPF Rare-Few HPF (None Seen); Specific Gravity, Urine 1.025 (1.002-1.036); Squamous Epithelial 0-3 HPF (0-3); WBC/HPF 0-3 HPF (0-3)
[2021-11-30] MEDS: Aspirin Chewable 81 MG TAB PO SCH (21:28)
[2021-11-30] MEDS: Mirtazapine 30 MG Soltab PO SCH (21:29)
[2021-11-30] MEDS: Melatonin 3 MG TAB PO SCH (21:29)
[2021-12-01] MEDS: Sodium Chloride 0.9% 1,000 ML IV SCH ×3 (03:35→22:25)
[2021-12-01 05:47] LABS: #Basophils 0.1 thou/uL (0.0-0.2); #Eosinphils 0.1 thou/uL (0.0-0.7); #Lymphocytes 1.3 thou/uL (1.20-3.40); #Monocytes 0.7 thou/uL (0.11-0.59); #Neutrophils 5.9 thou/uL (1.40-6.50); %Basophils 0.8 % (0.0-1.0); %Eosinophils 0.9 % (0.0-10.0); %Lymphocytes 15.8 % (21.0-51.0); %Monocytes 8.2 % (0.0-10.0); %Neutrophils 74.4 % (42.0-75.0); ALT (SGPT) 7 U/L (8-55); AST (SGOT) 13 U/L (5-34); Albumin 2.6 g/dL (3.4-4.8); Alkaline Phosphatase 30 U/L (40-110); Anion Gap 20 mmol/L (10-20); BUN (Urea Nitrogen) 6 mg/dL (8.4-25.7); Bilirubin, Total 0.5 mg/dL (0.2-1.2); Calc. Creatinine Clearance 131 mL/min (70-130); Calcium 8.1 mg/dL (7.8-10.44); Carbon Dioxide 20 mmol/L (23-31); Chloride 87 mmol/L (98-107); Globulin 3.5 g/dL (2.4-3.5); Glucose 70 mg/dL (83-110); Helmet Cells SLIGHT = 2-5 cells (100X) (0-1/hpf); Hemoglobin 7.9 g/dL (14.0-18.0); Hypochromia SLIGHT = 6-15 cells (100X) (0-5/hpf); MDiff Complete? YES; Mean Corpuscular Hemoglobin 25.6 pg (27.0-31.0); Mean Corpuscular Volume 91.5 fL (78.0-98.0); Mean Platelet Volume 6.6 fL (7.4-10.4); Platelet Count 420 thou/uL (130-400); Polychromasia SLIGHT = 2-3 cells (100X) (0-2/hpf); Potassium 3.7 mmol/L (3.5-5.1); Protein, Total 6.1 g/dL (5.8-8.1); RBC Distribution Width 16.6 % (11.5-14.5); Red Blood Cell (RBC) Count 3.07 mill/uL (4.70-6.10); Sodium 123 mmol/L (136-145)
[2021-12-01] MEDS: Cholecalciferol (Vitamin D3) 5,000 UNITS CAPSULE PO SCH (09:38)
[2021-12-01] MEDS: Carvedilol 3.125 MG TAB PO SCH ×2 (09:39→22:24)
[2021-12-01] MEDS: Sodium Chloride 1 GM TAB PO SCH ×3 (09:39→22:23)
[2021-12-01] MEDS: Lisinopril 10 MG TAB PO SCH (09:39)
[2021-12-01] MEDS: Lantiseptic Ointment 130 GM JAR TOP SCH ×2 (09:40→22:25)
[2021-12-01] MEDS: Icosapent Ethyl [Vascepa] 1 GM Capsule PO SCH ×2 (09:40→17:30)
[2021-12-01] MEDS: Polyethylene Glycol 3350 17 GM Packet PO SCH (09:41)
[2021-12-01] MEDS: Acetaminophen 500 MG TAB PO PRN ×2 (09:43→17:29)
[2021-12-01] MEDS: Aspirin Chewable 81 MG TAB PO SCH (22:23)
[2021-12-01] MEDS: Mirtazapine 30 MG Soltab PO SCH (22:24)
[2021-12-01] MEDS: Melatonin 3 MG TAB PO SCH (22:24)
[2021-12-02] MEDS: Sodium Chloride 0.9% 1,000 ML IV SCH ×3 (01:17→22:40)
[2021-12-02 06:15] LABS: Anion Gap 16 mmol/L (10-20); BUN (Urea Nitrogen) 6 mg/dL (8.4-25.7); Calc. Creatinine Clearance 131 mL/min (70-130); Calcium 8.2 mg/dL (7.8-10.44); Carbon Dioxide 23 mmol/L (23-31); Chloride 89 mmol/L (98-107); Glucose 75 mg/dL (83-110); Sodium 124 mmol/L (136-145)
[2021-12-02 07:17] LABS: Potassium 4.1 mmol/L (3.5-5.1)
[2021-12-02] MEDS: Lisinopril 10 MG TAB PO SCH (08:43)
[2021-12-02] MEDS: Carvedilol 3.125 MG TAB PO SCH ×2 (08:43→22:23)
[2021-12-02] MEDS: Cholecalciferol (Vitamin D3) 5,000 UNITS CAPSULE PO SCH (08:43)
[2021-12-02] MEDS: Sodium Chloride 1 GM TAB PO SCH ×3 (08:43→22:24)
[2021-12-02] MEDS: Polyethylene Glycol 3350 17 GM Packet PO SCH (08:44)
[2021-12-02] MEDS: Lantiseptic Ointment 130 GM JAR TOP SCH ×2 (08:44→22:25)
[2021-12-02] MEDS: Icosapent Ethyl [Vascepa] 1 GM Capsule PO SCH ×2 (08:45→16:17)
[2021-12-02 14:43] LABS: Eosinophils 1 % (0-10); Hemoglobin 9.1 g/dL (14.0-18.0); Lymphocytes 16 % (21-51); MDiff Complete? YES; Mean Corpuscular HGB CONC 30.6 g/dL (32.0-36.0); Mean Corpuscular Hemoglobin 27.2 pg (27.0-31.0); Mean Corpuscular Volume 88.9 fL (78.0-98.0); Mean Platelet Volume 6.3 fL (7.4-10.4); Monocytes 5 % (0-10); Neutrophil 78 % (42-75); Platelet Count 317 thou/uL (130-400); Platelet Morphology Comment Appears Adequate; RBC Distribution Width 16.5 % (11.5-14.5); Red Blood Cell (RBC) Count 3.33 mill/uL (4.70-6.10); White Blood Cell (WBC) Count 4.9 thou/uL (4.8-10.8)
[2021-12-02] MEDS: Acetaminophen 500 MG TAB PO PRN (22:21)
[2021-12-02] MEDS: Mirtazapine 30 MG Soltab PO SCH (22:24)
[2021-12-02] MEDS: Aspirin Chewable 81 MG TAB PO SCH (22:24)
[2021-12-02] MEDS: Melatonin 3 MG TAB PO SCH (22:24)
[2021-12-03 05:47] LABS: #Basophils 0.1 thou/uL (0.0-0.2); #Lymphocytes 1.2 thou/uL (1.20-3.40); #Monocytes 0.6 thou/uL (0.11-0.59); #Neutrophils 3.6 thou/uL (1.40-6.50); %Basophils 1.2 % (0.0-1.0); %Eosinophils 0.9 % (0.0-10.0); %Lymphocytes 21.1 % (21.0-51.0); %Neutrophils 66.9 % (42.0-75.0); Hemoglobin 8.6 g/dL (14.0-18.0); Mean Corpuscular Hemoglobin 29.3 pg (27.0-31.0); Mean Corpuscular Volume 88.8 fL (78.0-98.0); Mean Platelet Volume 6.3 fL (7.4-10.4); Platelet Count 309 thou/uL (130-400); RBC Distribution Width 16.6 % (11.5-14.5); Red Blood Cell (RBC) Count 2.94 mill/uL (4.70-6.10); White Blood Cell (WBC) Count 5.4 thou/uL (4.8-10.8)
[2021-12-03 06:00] LABS: Anion Gap 19 mmol/L (10-20); BUN (Urea Nitrogen) 4 mg/dL (8.4-25.7); Calc. Creatinine Clearance 146 mL/min (70-130); Carbon Dioxide 21 mmol/L (23-31); Chloride 88 mmol/L (98-107); Glucose 67 mg/dL (83-110); Potassium 3.6 mmol/L (3.5-5.1); Sodium 124 mmol/L (136-145)
[2021-12-03] MEDS: Lisinopril 10 MG TAB PO SCH (09:04)
[2021-12-03] MEDS: Lantiseptic Ointment 130 GM JAR TOP SCH ×2 (09:05→22:18)
[2021-12-03] MEDS: Carvedilol 3.125 MG TAB PO SCH ×2 (09:05→22:18)
[2021-12-03] MEDS: Sodium Chloride 1 GM TAB PO SCH ×3 (09:06→22:19)
[2021-12-03] MEDS: Polyethylene Glycol 3350 17 GM Packet PO SCH (09:06)
[2021-12-03] MEDS: Cholecalciferol (Vitamin D3) 5,000 UNITS CAPSULE PO SCH (09:08)
[2021-12-03] MEDS: Icosapent Ethyl [Vascepa] 1 GM Capsule PO SCH (09:08)
[2021-12-03] MEDS: Dextrose 5 % And 0.9 % NaCl 1,000 ML IV SCH (09:20)
[2021-12-03] MEDS: Aspirin Chewable 81 MG TAB PO SCH (22:18)
[2021-12-03] MEDS: Mirtazapine 30 MG Soltab PO SCH (22:18)
[2021-12-03] MEDS: Melatonin 3 MG TAB PO SCH (22:18)
[2021-12-04] MEDS: Dextrose 5 % And 0.9 % NaCl 1,000 ML IV SCH ×2 (05:34→23:32)
[2021-12-04] MEDS: Carvedilol 3.125 MG TAB PO SCH ×2 (08:36→22:26)
[2021-12-04] MEDS: Lisinopril 10 MG TAB PO SCH (08:36)
[2021-12-04] MEDS: Polyethylene Glycol 3350 17 GM Packet PO SCH (08:37)
[2021-12-04] MEDS: Lantiseptic Ointment 130 GM JAR TOP SCH ×2 (08:37→22:26)
[2021-12-04] MEDS: Sodium Chloride 1 GM TAB PO SCH ×3 (08:38→23:33)
[2021-12-04] MEDS: Cephalexin 500 MG CAP PO SCH ×3 (12:14→23:33)
[2021-12-04 13:57] LABS: SARS-CoV-2 PCR by NAA Not Detected (NotDetected)
[2021-12-04] MEDS: Mirtazapine 30 MG Soltab PO SCH (22:25)
[2021-12-04] MEDS: Melatonin 3 MG TAB PO SCH (22:25)
[2021-12-04] MEDS: Aspirin Chewable 81 MG TAB PO SCH (22:25)
[2021-12-05] MEDS: Cephalexin 500 MG CAP PO SCH ×2 (00:13→05:50)
[2021-12-05] MEDS: Carvedilol 3.125 MG TAB PO SCH ×2 (08:10→21:31)
[2021-12-05] MEDS: Sodium Chloride 1 GM TAB PO SCH ×3 (08:10→21:31)
[2021-12-05] MEDS: Lantiseptic Ointment 130 GM JAR TOP SCH ×2 (08:11→21:32)
[2021-12-05] MEDS: Polyethylene Glycol 3350 17 GM Packet PO SCH (08:11)
[2021-12-05] MEDS: Lisinopril 10 MG TAB PO SCH ×2 (08:12→21:32)
[2021-12-05 08:23] LABS: Anion Gap 14 mmol/L (10-20); BUN (Urea Nitrogen) Less than 4 mg/dL (8.4-25.7); Calc. Creatinine Clearance 150 mL/min (70-130); Carbon Dioxide 27 mmol/L (23-31); Chloride 87 mmol/L (98-107); Glucose 120 mg/dL (83-110); Potassium 3.1 mmol/L (3.5-5.1); Sodium 125 mmol/L (136-145)
[2021-12-05] MEDS: D5 0.9% NS w/ 20 mEq KCl 1,000 ML IV SCH (12:06)
[2021-12-05] MEDS: Cefdinir 300 MG CAP PO SCH (21:31)
[2021-12-05] MEDS: Aspirin Chewable 81 MG TAB PO SCH (21:31)
[2021-12-05] MEDS: Melatonin 3 MG TAB PO SCH (21:31)
[2021-12-05] MEDS: Mirtazapine 30 MG Soltab PO SCH (21:32)
[2021-12-06] MEDS: Lisinopril 10 MG TAB PO SCH ×2 (08:17→20:50)
[2021-12-06] MEDS: Carvedilol 3.125 MG TAB PO SCH ×2 (08:17→20:50)
[2021-12-06] MEDS: Sodium Chloride 1 GM TAB PO SCH ×3 (08:17→20:50)
[2021-12-06] MEDS: Cefdinir 300 MG CAP PO SCH ×2 (08:17→20:50)
[2021-12-06] MEDS: D5 0.9% NS w/ 20 mEq KCl 1,000 ML IV SCH (08:18)
[2021-12-06] MEDS: Lantiseptic Ointment 130 GM JAR TOP SCH ×2 (08:18→20:53)
[2021-12-06] MEDS: Polyethylene Glycol 3350 17 GM Packet PO SCH (08:20)
[2021-12-06] MEDS: Mirtazapine 30 MG Soltab PO SCH (20:50)
[2021-12-06] MEDS: Melatonin 3 MG TAB PO SCH (20:50)
[2021-12-06] MEDS: Aspirin Chewable 81 MG TAB PO SCH (20:50)
[2021-12-07] MEDS: D5 0.9% NS w/ 20 mEq KCl 1,000 ML IV SCH ×2 (02:35→21:44)
[2021-12-07 05:40] LABS: Anion Gap 13 mmol/L (10-20); BUN (Urea Nitrogen) Less than 4 mg/dL (8.4-25.7); Calc. Creatinine Clearance 137 mL/min (70-130); Calcium 8.2 mg/dL (7.8-10.44); Carbon Dioxide 27 mmol/L (23-31); Chloride 90 mmol/L (98-107); Glucose 116 mg/dL (83-110); Potassium 3.5 mmol/L (3.5-5.1); Sodium 126 mmol/L (136-145)
[2021-12-07] MEDS: Sodium Chloride 1 GM TAB PO SCH ×3 (09:17→20:39)
[2021-12-07] MEDS: Cefdinir 300 MG CAP PO SCH ×2 (09:17→20:39)
[2021-12-07] MEDS: Lantiseptic Ointment 130 GM JAR TOP SCH ×2 (09:17→20:39)
[2021-12-07] MEDS: Polyethylene Glycol 3350 17 GM Packet PO SCH (09:17)
[2021-12-07] MEDS: Carvedilol 3.125 MG TAB PO SCH ×2 (09:17→20:39)
[2021-12-07] MEDS: Lisinopril 10 MG TAB PO SCH ×2 (09:17→20:39)
[2021-12-07] MEDS: Aspirin Chewable 81 MG TAB PO SCH (20:39)
[2021-12-07] MEDS: Mirtazapine 30 MG Soltab PO SCH (20:39)
[2021-12-07] MEDS: Melatonin 3 MG TAB PO SCH (20:39)
[2021-12-08] MEDS: Lantiseptic Ointment 130 GM JAR TOP SCH ×2 (10:02→22:15)
[2021-12-08] MEDS: Carvedilol 3.125 MG TAB PO SCH ×2 (10:02→22:11)
[2021-12-08] MEDS: Cefdinir 300 MG CAP PO SCH ×2 (10:02→22:11)
[2021-12-08] MEDS: Lisinopril 10 MG TAB PO SCH ×2 (10:02→22:08)
[2021-12-08] MEDS: Polyethylene Glycol 3350 17 GM Packet PO SCH (10:03)
[2021-12-08] MEDS: Aspirin Chewable 81 MG TAB PO SCH (22:08)
[2021-12-08] MEDS: Melatonin 3 MG TAB PO SCH (22:09)
[2021-12-09] MEDS: Polyethylene Glycol 3350 17 GM Packet PO SCH (08:23)
[2021-12-09] MEDS: Carvedilol 3.125 MG TAB PO SCH ×2 (08:24→21:34)
[2021-12-09] MEDS: Lisinopril 10 MG TAB PO SCH ×2 (08:25→21:34)
[2021-12-09] MEDS: Cefdinir 300 MG CAP PO SCH ×2 (08:25→21:34)
[2021-12-09] MEDS: Lantiseptic Ointment 130 GM JAR TOP SCH ×2 (08:28→21:35)
[2021-12-09] MEDS: Megestrol Acetate 400 MG/10 ML UDCUP PO SCH (08:34)
[2021-12-09] MEDS: Aspirin Chewable 81 MG TAB PO SCH (21:34)
[2021-12-09] MEDS: Melatonin 3 MG TAB PO SCH (21:34)
[2021-12-09] MEDS: Doxepin HCl 25 MG CAP PO SCH (21:34)
[2021-12-10] MEDS: Polyethylene Glycol 3350 17 GM Packet PO SCH (08:37)
[2021-12-10] MEDS: Lantiseptic Ointment 130 GM JAR TOP SCH ×2 (08:37→22:07)
[2021-12-10] MEDS: Lisinopril 10 MG TAB PO SCH ×2 (09:01→22:05)
[2021-12-10] MEDS: Carvedilol 3.125 MG TAB PO SCH ×2 (09:01→22:06)
[2021-12-10] MEDS: Megestrol Acetate 400 MG/10 ML UDCUP PO SCH (09:01)
[2021-12-10] MEDS: Cefdinir 300 MG CAP PO SCH ×2 (09:01→22:06)
[2021-12-10] MEDS: Melatonin 3 MG TAB PO SCH (22:04)
[2021-12-10] MEDS: Aspirin Chewable 81 MG TAB PO SCH (22:06)
[2021-12-10] MEDS: Doxepin HCl 25 MG CAP PO SCH (22:08)
[2021-12-11] MEDS: Cefdinir 300 MG CAP PO SCH (08:29)
[2021-12-11] MEDS: Carvedilol 3.125 MG TAB PO SCH (08:29)
[2021-12-11] MEDS: Lisinopril 10 MG TAB PO SCH (08:30)
[2021-12-11] MEDS: Lantiseptic Ointment 130 GM JAR TOP SCH ×2 (08:30→21:57)
[2021-12-11] MEDS: Megestrol Acetate 400 MG/10 ML UDCUP PO SCH (08:32)
[2021-12-11 08:33] VITALS: BP 144/74
[2021-12-11] MEDS: Polyethylene Glycol 3350 17 GM Packet PO SCH (08:33)
[2021-12-11] MEDS ORDERED: Morphine 10 MG/0.5 ML ORAL SYRINGE SL PRN (09:03)
[2021-12-12] MEDS: Lantiseptic Ointment 130 GM JAR TOP SCH ×2 (09:15→20:26)
[2021-12-13 07:11] VITALS: TEMP 97.6
[2021-12-13] MEDS: Morphine 10 MG/0.5 ML ORAL SYRINGE SL PRN ×2 (09:04→15:04)
[2021-12-13] MEDS: Lantiseptic Ointment 130 GM JAR TOP SCH (09:08)
[2021-12-13] MEDS ORDERED: Atropine Sulfate 1% Ophth Soln 5 ml Bottle PO PRN (11:10)
[2021-12-13] MEDS ORDERED: Artificial Tear Sol 15 ML BOT EA EYE PRN (11:15)
== END 2021-12-13 17:45 | disposition expired | DRG 947 ==
LOC: MADMS 16:20
PROVIDERS: ADMIT Family Medicine; ATTEND Family Medicine
DX: R53.1 Weakness (principal); G93.41 Metabolic encephalopathy; Z66 Do not resuscitate; E87.1 Hypo-osmolality and hyponatremia; R44.3 Hallucinations, unspecified; N39.0 Urinary tract infection, site not specified; I25.10 Atherosclerotic heart disease of native coronary artery without angina pectoris; I10 Essential (primary) hypertension; E78.00 Pure hypercholesterolemia, unspecified; Z20.822 Contact with and (suspected) exposure to COVID-19; G47.00 Insomnia, unspecified; R63.0 Anorexia; R62.7 Adult failure to thrive; D64.9 Anemia, unspecified; I73.9 Peripheral vascular disease, unspecified; I25.5 Ischemic cardiomyopathy; Z89.512 Acquired absence of left leg below knee; Z95.5 Presence of coronary angioplasty implant and graft; Z79.82 Long term (current) use of aspirin; Z79.899 Other long term (current) drug therapy; Z88.8 Allergy status to other drugs, medicaments and biological substances; Z68.22 Body mass index [BMI] 22.0-22.9, adult
CPT/HCPCS: 36415; 80048; 80053; 81001; 82550; 85025; 87070; 87077; 87186; 87205; J3480; J7042; J7050; Q0162; U0003; U0005